=== PATIENT | female | born 1980 | race Caucasian/White ===

== ENCOUNTER 2016-08-10 23:35 | Emergency (ER) | payer OTHER ==
[2016-08-10 23:45] VITALS: RESP 18
--- NOTE | 2016-08-11 00:26 | ED ---
General Adult HPI - General Chief complaint: Allergic Reaction Stated complaint: Facial Swelling Time Seen by Provider: 08/10/16 23:59 Source: patient, RN notes reviewed Mode of arrival: ambulatory Limitations: no limitations - History of Present Illness Initial comments: Patient is a 36-year-old female presents to the emergency room for evaluation of chin swelling. Patient states she noticed swelling of her chin over 5 hours ago. Patient states it has increasingly been getting swollen over the course of 5 hours. Patient denies new facial washes. Patient denies any new facial lotions. Patient denies change in detergents. Patient denies any new medications. Patient states she has had these same symptoms before a few months ago and her chin was very swollen, wheeped and then subsided. Patient denies seeking medical treatment for it at that time. Patient states that this is causing her pain. Patient states the area hurts to touch. Patient denies any trouble swallowing. Patient denies fevers or chills. Patient denies headache or dizziness. Patient does states she has a history of cellulitis. Patient states she had in the back of her neck and this feels somewhat similar. Patient also states she has a history of lupus. Patient denies tongue swelling. Patient denies trying any new foods. Patient denies any dental pain. - Related Data Home Medications Medication Instructions Recorded Confirmed Albuterol Inhaler [Ventolin Hfa 1 puff INHALATION RT-Q6H PRN 11/04/15 11/04/15 Inhaler] Aspirin 364 mg PO ONCE 11/04/15 11/04/15 Previous Rx's Medication Instructions Recorded Cyclobenzaprine [Flexeril] 10 mg PO TID #20 tab 11/04/15 Naproxen 500 mg PO Q12HR 14 Days 11/04/15 Sulfamethox-Tmp 800-160Mg [Bactrim 2 each PO Q12HR 10 Days 08/11/16 Ds] Allergies Allergy/AdvReac Type Severity Reaction Status Date / Time No Known Allergies Allergy Verified 08/10/16 23:45 Review of Systems ROS Statement: Those systems with pertinent positive or pertinent negative responses have been documented in the HPI. ROS Other: All systems not noted in ROS Statement are negative. Past Medical History Past Medical History: Asthma Additional Past Medical History / Comment(s): Lupus anemia History of Any Multi-Drug Resistant Organisms: None Reported Past Surgical History: Section, Tubal Ligation Additional Past Surgical History / Comment(s): lupus Past Psychological History: No Psychological Hx Reported Smoking Status: Never smoker Past Alcohol Use History: None Reported Past Drug Use History: None Reported General Exam - General Exam Comments Initial Comments: Sitting in exam room, no acute distress. Limitations: no limitations General appearance: alert, in no apparent distress Head exam: Present: atraumatic, normocephalic, normal inspection Eye exam: Present: normal appearance ENT exam: Present: normal exam Neck exam: Present: normal inspection Respiratory exam: Absent: respiratory distress Extremities exam: Present: normal inspection Back exam: Present: normal inspection Neurological exam: Present: alert, oriented X3, CN II-XII intact, normal gait Psychiatric exam: Present: normal affect, normal mood Skin exam: Present: other (Slight erythema and induration over the chin. No drainage noted no fluctuance.) Course Vital Signs 08/10/16 08/11/16 23:41 00:48 Temperature 99.8 F H 99.1 F Pulse Rate 113 H 97 Respiratory 18 18 Rate Blood Pressure 139/72 145/88 O2 Sat by Pulse 97 99 Oximetry Medical Decision Making - Medical Decision Making Patient is a 36-year-old female presents emergency room for evaluation of chin swelling. Symptoms consistent with possible facial cellulitis. Patient also evaluated by Dr. Gabriel. Patient was started on Bactrim and advised to return for worsening symptoms. Patient states she understands everything that was discussed with her. Return parameters discussed. Disposition Clinical Impression: Facial cellulitis Disposition: HOME SELF-CARE Condition: Good Instructions: Cellulitis (ED) Additional Instructions: Take antibiotics as instructed. Apply warm compresses. Please follow up with primary care provider in 1-2 days. If any new symptom arises or symptoms worsen , return to ER as soon as possible. Prescriptions: Sulfamethox-Tmp 800-160Mg [Bactrim Ds] 2 each PO Q12HR 10 Days Referrals: Jaclyn Nevarez MD [STAFF PHYSICIAN] - 1-2 days Time of Disposition: 00:38
[2016-08-11] MEDS ORDERED: SULFAMETHOX-TMP 800-160MG 1 EACH TAB PO STA ×2 (00:41→00:58)
[2016-08-11 00:52] VITALS: BP 145/88; PULSE 97; TEMP 99.1
== END 2016-08-11 01:02 | disposition home or self-care (01) ==
LOC: EC 23:35
DX: L03.211 Cellulitis of face (principal); Z79.82 Long term (current) use of aspirin
CPT/HCPCS: 99283

== ENCOUNTER 2016-08-25 17:28 | Emergency (ER) | payer OTHER ==
--- NOTE | 2016-08-25 19:13 | ED ---
Skin/Abscess/FB HPI - General Chief complaint: Skin/Abscess/Foreign Body Stated complaint: cellulitis, shakiness Time Seen by Provider: 08/25/16 18:40 Source: patient, RN notes reviewed Mode of arrival: ambulatory Limitations: no limitations - History of Present Illness Initial comments: 36-year-old female presents to the emergency department with a chief complaint of cellulitis to the back. Patient states that she had swelling to her chin and she was started on Bactrim and there is drainage. Patient states that now she's noticed an area of cellulitis to the back which typical for her she didn' t get cellulitis back in 10 to time. Patient states that she has not had any nausea or vomiting with this. Patient states it's in her upper back. Patient sates that she has not noticed a fever at home but she has had the chills. Patient eats that she was concerned because she is on the Bactrim but this does not seem be going away so she thought that she should be evaluated. Patient denies any recent fever, chills, shortness of breath, chest pain, back pain, abdominal pain, nausea vomiting, numbness or tingling, dysuria or hematuria, constipation or diarrhea, headaches or visual changes, or any other current symptoms. - Related Data Home Medications Medication Instructions Recorded Confirmed Albuterol Inhaler [Ventolin Hfa 1 puff INHALATION RT-Q6H PRN 11/04/15 08/25/16 Inhaler] Sulfamethox-Tmp 800-160Mg [Bactrim 1 tab PO Q12HR 08/25/16 08/25/16 Ds] Previous Rx's Medication Instructions Recorded Cephalexin [Keflex] 500 mg PO Q6HR #40 cap 08/25/16 Allergies Allergy/AdvReac Type Severity Reaction Status Date / Time No Known Allergies Allergy Verified 08/25/16 19:03 Review of Systems ROS Statement: Those systems with pertinent positive or pertinent negative responses have been documented in the HPI. ROS Other: All systems not noted in ROS Statement are negative. Past Medical History Past Medical History: Asthma Additional Past Medical History / Comment(s): Lupus anemia History of Any Multi-Drug Resistant Organisms: None Reported Past Surgical History: Section, Tubal Ligation Additional Past Surgical History / Comment(s): lupus Past Psychological History: No Psychological Hx Reported Smoking Status: Never smoker Past Alcohol Use History: None Reported Past Drug Use History: None Reported General Exam Limitations: no limitations General appearance: alert, in no apparent distress Head exam: Present: atraumatic, normocephalic, normal inspection ENT exam: Present: normal exam, mucous membranes moist Neck exam: Present: normal inspection. Absent: tenderness, meningismus, lymphadenopathy Respiratory exam: Present: normal lung sounds bilaterally. Absent: respiratory distress, wheezes, rales, rhonchi, stridor Cardiovascular Exam: Present: regular rate, normal rhythm, normal heart sounds. Absent: systolic murmur, diastolic murmur, rubs, gallop, clicks Back exam: Present: full ROM. Absent: normal inspection (Patient appears to have some swelling and erythema to the upper back.), tenderness Neurological exam: Present: alert, oriented X3 Psychiatric exam: Present: normal affect, normal mood Skin exam: Present: warm, dry, intact, normal color. Absent: rash Course Vital Signs 08/25/16 17:58 Temperature 99.0 F Pulse Rate 70 Respiratory 20 Rate Blood Pressure 128/85 O2 Sat by Pulse 98 Oximetry Medical Decision Making - Medical Decision Making 36-year-old female presents emergency Department chief complaint of what appears to be a cellulitis to the back. This time we'll add Keflex to the patient's treatment due to the fact that Bactrim does not have good coverage for a simple cellulitis. At this time we did discuss follow up with her doctor we did discuss return parameters all questions. Patient stated that she understood and she is here with this plan. She will be discharged. Disposition Clinical Impression: Cellulitis of back Disposition: HOME SELF-CARE Condition: Stable Instructions: Cellulitis (ED) Additional Instructions: Please use medication as discussed. Please follow up with family doctor if symptoms have not improved over the next two days. Please return to the emergency room if your symptoms increase or worsen or for any other concerns. Prescriptions: Cephalexin [Keflex] 500 mg PO Q6HR #40 cap Referrals: Bety Mansfield MD [STAFF PHYSICIAN] - 1-2 days Time of Disposition: 19:12
[2016-08-25 19:25] VITALS: BP 152/74; PULSE 69; RESP 18; TEMP 98.7
== END 2016-08-25 19:22 | disposition home or self-care (01) ==
LOC: EC 17:28
DX: L03.312 Cellulitis of back [any part except buttock and flank] (principal)
CPT/HCPCS: 99283

== ENCOUNTER 2016-09-23 13:15 | Emergency (ER) | payer OTHER ==
[2016-09-23 14:05] LABS: Appearance,Urine Clear (Clear); Bilirubin,Urine Negative (Negative); Glucose,Urine (UA) Negative (Negative); Ketones,Urine Negative (Negative); Leukocyte Esterase,Urine Negative (Negative); Nitrite,Urine Negative (Negative); PH, Urine 7.5 (5.0-8.0); Protein,Urine Negative (Negative); Specific Gravity,Urine 1.005 (1.001-1.035); UA Billing (MACRO vs. MICRO) CHEM; Urobilinogen,Urine <2.0 mg/dL (<2.0)
[2016-09-23] MEDS ORDERED: RX INFO: IV CONTRAST WAS GIVEN 1 EACH MISC MISCELLANE PRN (14:10)
--- NOTE | 2016-09-23 14:19 | ED ---
General Adult HPI - General Chief complaint: Abdominal Pain Stated complaint: Abd Pain Time Seen by Provider: 09/23/16 13:34 Source: patient Mode of arrival: wheelchair Limitations: no limitations - History of Present Illness Initial comments: Patient is a 36-year-old female who presents to the ED for evaluation of right lower quadrant abdominal pain. Patient states that 2 days ago she experienced nausea and nonbloody nonbilious vomiting throughout today. She reports that yesterday throughout the day she didn't eat or drink much because she had no appetite. She states that she was sexually active yesterday evening but experienced pain with sexual intercourse. She states that this morning she woke up with a gnawing cramping pain in her right lower quadrant radiating to her right flank. Patient has never experienced any pain like this in the past. 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 Patient reports that she's had a tubal ligation, she is sexually active with a single partner in a monogamous relationship and has no concern for sexual transmitted infections or . Patient reports that prior to yesterday she had never experienced any dyspareunia, vaginal discharge or pain with any type of sexual activity. Patient is currently on antibiotics for cellulitis which she reports is been improving significantly. She does have chronic psoriasis which is poorly controlled. - Related Data Home Medications Medication Instructions Recorded Confirmed Albuterol Inhaler [Ventolin Hfa 1 puff INHALATION RT-Q6H PRN 11/04/15 09/23/16 Inhaler] Allergies Allergy/AdvReac Type Severity Reaction Status Date / Time No Known Allergies Allergy Verified 09/23/16 13:20 Review of Systems ROS Statement: Those systems with pertinent positive or pertinent negative responses have been documented in the HPI. ROS Other: All systems not noted in ROS Statement are negative. Constitutional: Reports: fever (subjective) Eyes: Denies: vision change ENT: Denies: throat pain Respiratory: Denies: cough, dyspnea Cardiovascular: Denies: chest pain, palpitations Endocrine: Reports: fatigue Gastrointestinal: Reports: abdominal pain, nausea, vomiting. Denies: diarrhea, constipation, hematemesis, melena, hematochezia Genitourinary: Reports: urgency, frequency, abnormal menses (menses occured 1 week early this month). Denies: dysuria, hematuria, discharge Skin: Reports: rash (chronic psoriasis) Neurological: Denies: headache, weakness Psychiatric: Denies: anxiety Hematological/Lymphatic: Denies: easy bleeding, easy bruising Past Medical History Past Medical History: Asthma Additional Past Medical History / Comment(s): Lupus anemia chronic cellulitis, HPV History of Any Multi-Drug Resistant Organisms: None Reported Past Surgical History: Section, Tubal Ligation Additional Past Surgical History / Comment(s): lupus Past Psychological History: No Psychological Hx Reported Smoking Status: Never smoker Past Alcohol Use History: None Reported Past Drug Use History: None Reported General Exam Limitations: no limitations General appearance: alert, in no apparent distress Head exam: Present: atraumatic Eye exam: Present: normal appearance, PERRL, EOMI. Absent: scleral icterus, conjunctival injection, periorbital swelling ENT exam: Present: mucous membranes dry Neck exam: Present: normal inspection. Absent: tenderness, meningismus, lymphadenopathy Respiratory exam: Present: normal lung sounds bilaterally. Absent: respiratory distress, wheezes Cardiovascular Exam: Present: regular rate, normal rhythm GI/Abdominal exam: Present: soft, tenderness (RLQ), normal bowel sounds. Absent : distended, guarding, rebound, rigid Rectal exam: Present: deferred Extremities exam: Present: full ROM, normal capillary refill. Absent: tenderness Back exam: Present: full ROM, CVA tenderness (R). Absent: CVA tenderness (L), paraspinal tenderness, vertebral tenderness Neurological exam: Present: alert, oriented X3, CN II-XII intact Psychiatric exam: Present: normal affect, normal mood Skin exam: Present: warm, dry, intact, rash Course Vital Signs 09/23/16 09/23/16 09/23/16 13:17 15:16 17:07 Temperature 99.3 F 98.7 F Pulse Rate 85 72 94 Respiratory 18 18 16 Rate Blood Pressure 134/94 114/59 116/86 O2 Sat by Pulse 100 100 100 Oximetry 09/23/16 17:53 Temperature 98.6 F Pulse Rate 87 Respiratory 16 Rate Blood Pressure 130/68 O2 Sat by Pulse 99 Oximetry Medical Decision Making - Medical Decision Making The patient was seen and evaluated, history is obtained from the patient Urinalysis reveals no hematuria or signs of urinary tract infection, urine is negative Concerning the pain is in the right lower quadrant and associated with nausea, vomiting and anorexia I will pursue further workup for possible appendicitis Labs no acute abnormalities CT abdomen with no evidence of acute appendicitis, no acute findings on CT Patient with persistent right lower quadrant pain and pelvic pain Pelvic Exam with no acute findings Patient was noted to be can writhing in pain immediately upon manual examination though she tolerated the speculum exam cultures were obtained Pelvic ultrasound was ordered Pelvic ultrasound with no evidence of ovarian torsion, cyst or acute pathology All lab, physical exam and radiology findings were discussed with the patient. I advised her that there is no unified cause for her pain today. Patient states she believes this may just be her lupus. Patient states that she has recently moved back to the area from out of town and does not have a manager civil that area, however she does have a primary care physician she previously followed with that she does plan to follow up with. I discussed with patient indications for return to the ER including worsening pain, inability to tolerate oral intake or the development of any new or concerning symptoms. Patient expressed understanding and agreement with the plan for discharge home with close follow-up with PCP - Lab Data Result diagrams: 09/23/16 13:38 09/23/16 13:38 Lab Results 09/23/16 09/23/16 09/23/16 Range/Units 13:38 13:38 13:38 WBC 8.6 (3.8-10.6) k/uL RBC 4.78 (3.80-5.40) m/uL Hgb 12.4 (11.4-16.0) gm/dL Hct 38.2 (34.0-46.0) % MCV 79.9 L (80.0-100.0) fL MCH 25.9 (25.0-35.0) pg MCHC 32.5 (31.0-37.0) g/dL RDW 15.2 (11.5-15.5) % Plt Count 462 H (150-450) k/uL Neutrophils % 80 % Lymphocytes % 16 % Monocytes % 2 % Eosinophils % 1 % Basophils % 0 % Neutrophils # 6.9 (1.3-7.7) k/uL Lymphocytes # 1.4 (1.0-4.8) k/uL Monocytes # 0.1 (0-1.0) k/uL Eosinophils # 0.1 (0-0.7) k/uL Basophils # 0.0 (0-0.2) k/uL Hypochromasia Slight Sodium (137-145) mmol/L Potassium (3.5-5.1) mmol/L Chloride (98-107) mmol/L Carbon Dioxide (22-30) mmol/L Anion Gap mmol/L BUN (7-17) mg/dL Creatinine (0.52-1.04) mg/dL Est GFR (MDRD) Af Amer (>60 ml/min/1.73 sqM) Est GFR (MDRD) Non-Af (>60 ml/min/1.73 sqM) Glucose (74-99) mg/dL Calcium (8.4-10.2) mg/dL Urine Color Yellow Urine Appearance Clear (Clear) Urine pH 7.5 (5.0-8.0) Ur Specific [place] 1.005 (1.001-1.035) Urine Protein Negative (Negative) Urine Glucose (UA) Negative (Negative) Urine Ketones Negative (Negative) Urine Blood Negative (Negative) Urine Nitrite Negative (Negative) Urine Bilirubin Negative (Negative) Urine Urobilinogen <2.0 (<2.0) mg/dL Ur Leukocyte Esterase Negative (Negative) Urine HCG, Qual Not Detected (Not Detectd) 09/23/16 Range/Units 13:38 WBC (3.8-10.6) k/uL RBC (3.80-5.40) m/uL Hgb (11.4-16.0) gm/dL Hct (34.0-46.0) % MCV (80.0-100.0) fL MCH (25.0-35.0) pg MCHC (31.0-37.0) g/dL RDW (11.5-15.5) % Plt Count (150-450) k/uL Neutrophils % % Lymphocytes % % Monocytes % % Eosinophils % % Basophils % % Neutrophils # (1.3-7.7) k/uL Lymphocytes # (1.0-4.8) k/uL Monocytes # (0-1.0) k/uL Eosinophils # (0-0.7) k/uL Basophils # (0-0.2) k/uL Hypochromasia Sodium 138 (137-145) mmol/L Potassium 4.5 (3.5-5.1) mmol/L Chloride 104 (98-107) mmol/L Carbon Dioxide 25 (22-30) mmol/L Anion Gap 9 mmol/L BUN 4 L (7-17) mg/dL Creatinine 0.65 (0.52-1.04) mg/dL Est GFR (MDRD) Af Amer >60 (>60 ml/min/1.73 sqM) Est GFR (MDRD) Non-Af >60 (>60 ml/min/1.73 sqM) Glucose 110 H (74-99) mg/dL Calcium 9.2 (8.4-10.2) mg/dL Urine Color Urine Appearance (Clear) Urine pH (5.0-8.0) Ur Specific [place] (1.001-1.035) Urine Protein (Negative) Urine Glucose (UA) (Negative) Urine Ketones (Negative) Urine Blood (Negative) Urine Nitrite (Negative) Urine Bilirubin (Negative) Urine Urobilinogen (<2.0) mg/dL Ur Leukocyte Esterase (Negative) Urine HCG, Qual (Not Detectd) Disposition Clinical Impression: Abdominal pain Disposition: HOME SELF-CARE Instructions: Karen (ED), Acute Abdominal Pain (ED), Abdominal Pain (ED ) Referrals: Jaclyn Nevarez MD [Primary Care Provider] - 1-2 days Time of Disposition: 17:36
[2016-09-23 14:40] LABS: Basophils % (A) 0 %; CH 25.1; CHCM 31.4; Eosinophils # (A) 0.1 k/uL (0-0.7); Eosinophils % (A) 1 %; HCT 38.2 % (34.0-46.0); HDW 2.62; HGB 12.4 gm/dL (11.4-16.0); Hypochromasia Slight; Luc # (Auto) 0.09; Luc % (Auto) 1; Lymphocytes # (A) 1.4 k/uL (1.0-4.8); Lymphocytes % (A) 16 %; MCH 25.9 pg (25.0-35.0); MCHC 32.5 g/dL (31.0-37.0); MCV 79.9 fL (80.0-100.0); Mean Platelet Volume 6.4; Monocytes # (A) 0.1 k/uL (0-1.0); Monocytes % (A) 2 %; Neutrophils # (A) 6.9 k/uL (1.3-7.7); Neutrophils % (A) 80 %; RBC 4.78 m/uL (3.80-5.40); RDW 15.2 % (11.5-15.5); WBC 8.6 k/uL (3.8-10.6); WBC (Perox) 8.91
[2016-09-23 14:42] LABS: Anion Gap 9 mmol/L; Blood Urea Nitrogen 4 mg/dL (7-17); Calcium 9.2 mg/dL (8.4-10.2); Carbon Dioxide 25 mmol/L (22-30); Chloride 104 mmol/L (98-107); Glucose 110 mg/dL (74-99); Non-African American GFR(MDRD) >60 (>60 ml/min/1.73 sqM); Potassium 4.5 mmol/L (3.5-5.1); Sodium 138 mmol/L (137-145)
--- NOTE | 2016-09-23 15:23 | CT ---
EXAMINATION TYPE: CT abdomen pelvis w con DATE OF EXAM: 09/23/2016 COMPARISON: Prior CT abdomen pelvis 07/21/2014 HISTORY: RLQ pain X 3 days, burning sensation with urination CT DLP: 1980.6 mGycm Automated exposure control for dose reduction was used. TECHNIQUE: Helical acquisition of images from the lung bases through the pelvis have been completed. CONTRAST: Performed without Oral Contrast and with IV Contrast, patient injected with 100 mL of Omnipaque 300. FINDINGS: Small umbilical hernia contains fat. LUNG BASES: No significant abnormality is appreciated. AORTA: No significant abnormality is appreciated. LIVER/GB: Gallbladder is unremarkable, liver shows low attenuation and is enlarged PANCREAS: No significant abnormality is seen. SPLEEN: Enlarged ADRENALS: No significant abnormality is seen. KIDNEYS: No significant abnormality is seen. REPRODUCTIVE ORGANS: Fallopian tubal ligation clips are in place. BOWEL: The appendix is normal. No bowel obstruction. FREE AIR: No Free Air visible. ASCITES: None visible. PELVIC ADENOPATHY: None visualized. RETROPERITONEAL ADENOPATHY: No Retroperitoneal Adenopathy visible. URINARY BLADDER: No significant abnormality is seen. OSSEOUS STRUCTURES: No significant abnormality is seen. IMPRESSION: HEPATOSPLENOMEGALY, HEPATIC STEATOSIS.
--- NOTE | 2016-09-23 16:50 | US ---
EXAMINATION TYPE: US transvaginal DATE OF EXAM: 09/23/2016 COMPARISON: CT same day CLINICAL HISTORY: RLQ pain, neg CT. TECHNIQUE: Transvaginal (TV) Date of LMP: 09/16/2016 EXAM MEASUREMENTS: Uterus: 9.2 x 4.6 x 6.1 cm Endometrial Stripe: 0.8 cm Right Ovary: 2.5 x 1.9 x 2.3 cm Left Ovary: 2.6 x 1.7 x 2.9 cm 1. Uterus: Anteverted wnl 2. Endometrium: 9 mm, within normal limits. 3. Right Ovary: follicles seen 4. Left Ovary: follicles seen Spectral, color and waveform doppler imaging shows good arterial and venous flow within the ovaries ; there is no evidence for ovarian torsion. 5. Bilateral Adnexa: wnl 6. Posterior cul-de-sac: no free fluid Small nabothian cysts are noted within the cervix. IMPRESSION: Unremarkable pelvic ultrasound.
[2016-09-23 17:09] VITALS: RESP 16
[2016-09-23 17:54] VITALS: BP 130/68; PULSE 87; TEMP 98.6
== END 2016-09-23 17:53 | disposition home or self-care (01) ==
LOC: EC 13:15
DX: R10.31 Right lower quadrant pain (principal); R11.2 Nausea with vomiting, unspecified; R63.0 Anorexia; Z98.51 Tubal ligation status
CPT/HCPCS: 36415; 80048; 85025; 81003; 81025; 93975; 76830; 74177; 99284; Q9967; 87070; 87205; 87491; 87591; 87808

== ENCOUNTER 2016-11-27 17:22 | Emergency (ER) | payer OTHER ==
[2016-11-27 17:38] VITALS: BP 122/58; PULSE 99; RESP 16; TEMP 99.4
[2016-11-27] MEDS ORDERED: IBUPROFEN 800 MG TAB PO STA (17:58)
--- NOTE | 2016-11-27 18:19 | ED ---
Upper Extremity HPI - General Chief Complaint: Extremity Injury, Upper Stated Complaint: left5 hand injury from fall Time Seen by Provider: 11/27/16 17:54 Source: patient Mode of arrival: ambulatory Limitations: no limitations - History of Present Illness Initial Comments: Patient is a right-handed 36-year-old female presenting to the emergency department with chief complaint of left ventral hand pain. Patient states she was outside walking and tripped on the sidewalk and landed with her hand sideways. Onset of injury approximately 30 minutes prior to arrival. Patient is currently rating pain 7 out of 10, described as a sharp and numbing pain. Pain is exacerbated with flexion of left hand. Pain radiates up into left wrist. Patient denies previous injury or trauma to left upper extremity. No treatment prior to arrival. Patient is up-to-date on her tetanus immunization. Patient denies any other symptoms. - Related Data Home Medications Medication Instructions Recorded Confirmed Gabapentin [Neurontin] 300 mg PO BID 11/27/16 11/27/16 Allergies Allergy/AdvReac Type Severity Reaction Status Date / Time No Known Allergies Allergy Verified 11/27/16 18:13 Review of Systems ROS Statement: Those systems with pertinent positive or pertinent negative responses have been documented in the HPI. ROS Other: All systems not noted in ROS Statement are negative. Past Medical History Past Medical History: Asthma Additional Past Medical History / Comment(s): Lupus anemia chronic cellulitis, HPV History of Any Multi-Drug Resistant Organisms: None Reported Past Surgical History: Section, Tubal Ligation Additional Past Surgical History / Comment(s): lupus Past Psychological History: Bipolar Smoking Status: Never smoker Past Alcohol Use History: None Reported Past Drug Use History: Marijuana General Exam - General Exam Comments Initial Comments: GENERAL: Pt awake and alert, well-appearing, well-nourished, and in no acute distress. HEAD: Atraumatic, normocephalic. EYES: Pupils equal, round, sclera anicteric, conjunctiva are normal. ENT: Moist mucous membranes. NECK:Normal range of motion, supple without lymphadenopathy or JVD. LUNGS: Breath sounds clear to auscultation bilaterally. No wheezes, rales, or rhonchi. HEART: Heart S1, S2, no S3 or S4. Regular rate and rhythm. No murmurs, rubs or gallops. ABDOMEN: Soft, nontender, nondistended, normoactive bowel sounds. No guarding, no rebound. No masses or organomegaly appreciated. EXTREMITIES: Left hand is without obvious asymmetry or deformity compared to right hand. Mild swelling and erythema to distal aspect of the palmar hand with mild ecchymosis. Normal flexion and extension of fingers. No swelling of finger tips. Radial and ulnar pulses palpable. Cap refill less than 3 seconds. NEUROLOGICAL: Pt oriented x 3. Cranial nerves II through XII grossly intact. Strength and sensation grossly intact. PSYCH: Normal mood, normal affect. SKIN: Warm, dry, intact. Limitations: no limitations Course Vital Signs 11/27/16 17:35 Temperature 99.4 F Pulse Rate 99 Respiratory 16 Rate Blood Pressure 122/58 O2 Sat by Pulse 97 Oximetry Medical Decision Making - Medical Decision Making Left hand sprain. - Radiology Data Radiology results: report reviewed Left wrist x-ray: No acute fracture or dislocation. Joint spaces in the left wrist appear within normal limits. Overlying soft tissue appears unremarkable. Disposition Clinical Impression: Sprain of left hand Disposition: HOME SELF-CARE Condition: Good Instructions: Hand Sprain (ED) Additional Instructions: Avoid activity that causes pain Ice 20 minutes 4 times a day usually for 2-3 days Jacques wrap to provide support and limit swelling Keep elevated as much as possible 24-48 hours. Continue Motrin 800 mg 3 times a day around the clock for the next 2 days. Return to the emergency department with symptoms of increased swelling, pain, numbness, tingling, or hand feeling cold to touch. Follow-up with primary service and orthopedic service as directed if pain persist in 7-10 days. Referrals: Jaclyn Nevarez MD [Primary Care Provider] - 1-2 days Austin Davis DO [Doctor of Osteopathic Medicine] - 1-2 days (Follow-up in 7- 10 days if pain persist) Time of Disposition: 18:58
--- NOTE | 2016-11-27 18:52 | XR ---
EXAMINATION TYPE: XR wrist complete LT DATE OF EXAM: 11/27/2016 CLINICAL HISTORY: Left wrist pain after fall injury today. TECHNIQUE: Frontal, lateral and oblique images of the left wrist are obtained. Additional fourth sca phoid view was acquired. COMPARISON: None FINDINGS: There is no acute fracture/dislocation evident in the left wrist. The joint spaces in the left wrist appear within normal limits. The overlying soft tissue appears unremarkable. IMPRESSION: There is no acute fracture or dislocation in the left wrist.
== END 2016-11-27 19:05 | disposition home or self-care (01) ==
LOC: EC 17:22
DX: S63.92XA Sprain of unspecified part of left wrist and hand, initial encounter (principal); Z79.899 Other long term (current) drug therapy; W01.0XXA Fall on same level from slipping, tripping and stumbling without subsequent striking against object, initial encounter; Y92.480 Sidewalk as the place of occurrence of the external cause
CPT/HCPCS: 99283

== ENCOUNTER 2016-11-28 20:34 | Emergency (ER) | payer OTHER ==
--- NOTE | 2016-11-28 20:58 | ED ---
General Adult HPI - General Chief complaint: Extremity Injury, Lower Stated complaint: left Knee Pain Time Seen by Provider: 11/28/16 20:41 Source: patient, RN notes reviewed Mode of arrival: wheelchair Limitations: no limitations - History of Present Illness Initial comments: This is a 36-year-old female who presents to the emergency department with chief complaint of left knee pain. Patient states she presented to the ED yesterday after falling on a sidewalk. She was diagnosed with having a left wrist sprain. Patient states that when she fell, she fell onto her knees as well but experienced no pain in either of her knees so was not evaluated for knee injury at the ED. This afternoon patient began to develop a dull ache in her left knee. She states that with flexion and weightbearing there is a sharp shooting pain. Denies fever, chills, chest pain, shortness of breath, abdominal pain, nausea or vomiting, constipation or diarrhea, dysuria or hematuria, numbness or tingling, headache or vision changes. - Related Data Home Medications Medication Instructions Recorded Confirmed Gabapentin [Neurontin] 300 mg PO BID 11/27/16 11/27/16 Albuterol Inhaler [Ventolin Hfa 1 - 2 puff INHALATION RT-Q6H PRN 11/28/16 Inhaler] Previous Rx's Medication Instructions Recorded Ibuprofen 600 mg PO Q6HR #30 tablet 11/28/16 Allergies Allergy/AdvReac Type Severity Reaction Status Date / Time No Known Allergies Allergy Verified 11/28/16 20:49 Review of Systems ROS Statement: Those systems with pertinent positive or pertinent negative responses have been documented in the HPI. ROS Other: All systems not noted in ROS Statement are negative. Past Medical History Past Medical History: Asthma Additional Past Medical History / Comment(s): Lupus anemia chronic cellulitis, HPV History of Any Multi-Drug Resistant Organisms: None Reported Past Surgical History: Section, Tubal Ligation Additional Past Surgical History / Comment(s): lupus Past Psychological History: Bipolar Smoking Status: Never smoker Past Alcohol Use History: None Reported Past Drug Use History: Marijuana General Exam - General Exam Comments Initial Comments: General: Awake and alert, well-developed; in no apparent distress. HEENT: Head atraumatic, normocephalic. Pupils are equal, round and reactive to light. Extraocular movements intact. Neck: Supple. Normal ROM. Cardiovascular: Regular rate and rhythm. No murmurs, rubs or gallops. Chest symmetrical. Respiratory: Lungs clear to auscultation bilaterally. No wheezes, rales or rhonchi. Normal respiratory effort with no use of accessory muscles. Musculoskeletal: Left knee has no evidence of swelling or erythema. Pain is elicited with palpation of the medial aspect of the left knee. Active and passive range of motion is normal, however pain is elicited with flexion and valgus stress. Sensation is intact. Pedal pulses 2+ equal and palpable bilaterally. Skin: [place], warm and dry without rashes or lesions. Neurological: Alert and oriented x3. CN II-XII grossly intact. Speech is fluent and answers are appropriate. No focal neuro deficits. Psychiatric: Normal mood and affect. No overt signs of depression or anxiety noted. Limitations: no limitations Course Vital Signs 11/28/16 20:37 Temperature 98 F Pulse Rate 86 Respiratory 18 Rate Blood Pressure 143/67 O2 Sat by Pulse 96 Oximetry Medical Decision Making - Medical Decision Making This is a 36-year-old female who presents to the emergency department with complaint of left knee pain. X-ray reveals no acute fracture, dislocations or other abnormalities. Left knee was placed in a knee immobilizer. Patient will be discharged home with recommendation to use ice and elevate and to take ibuprofen as needed for pain. She was provided contact information for follow- up with orthopedics if desired. Patient voices understanding and is in agreement to the plan. All questions were answered. - Radiology Data Radiology results: report reviewed Left knee xray findings: There is no fracture or malalignment, and the soft tissues are negative for acute findings. Prominently advanced tricompartmental osteoarthritis changes are noted. Disposition Clinical Impression: Acute internal derangement of knee Disposition: HOME SELF-CARE Condition: Good Instructions: Knee Sprain (ED), Knee Pain (ED) Additional Instructions: Please take medications as prescribed. Please follow up with orthopedics within 1-2 days. Please follow up with primary care provider within 1-2 days. Return to emergency department if symptoms should worsen or any concerns arise. Prescriptions: Ibuprofen 600 mg PO Q6HR #30 tablet Referrals: Jaclyn Nevarez MD [Primary Care Provider] - 1-2 days Artemio Hurt MD [STAFF PHYSICIAN] - 1-2 days Time of Disposition: 21:35
--- NOTE | 2016-11-28 21:22 | XR ---
PROCEDURE: XR knee complete LT DATE AND TIME: 11/28/2016 9:05 PM REFERRING PHYSICIAN: Dana Reyes CLINICAL INDICATION: PHH, Pain after injury. TECHNIQUE: Department protocol. COMPARISON: None FINDINGS: There is no fracture or malalignment, and the soft tissues are negative for acute findings. Prominently advanced tricompartmental osteoarthritis changes are noted. IMPRESSION: NO ACUTE PROCESS.
[2016-11-28 21:52] VITALS: BP 90/61; PULSE 67; RESP 16; TEMP 98.3
== END 2016-11-28 21:50 | disposition home or self-care (01) ==
LOC: EC 20:34
DX: S89.92XA Unspecified injury of left lower leg, initial encounter (principal); Z79.899 Other long term (current) drug therapy; W19.XXXA Unspecified fall, initial encounter; Y92.480 Sidewalk as the place of occurrence of the external cause
CPT/HCPCS: 99283 ×2; 73562; L1830

== ENCOUNTER 2017-03-22 11:57 | Emergency (ER) | payer OTHER ==
[2017-03-22 12:11] VITALS: RESP 20
[2017-03-22] MEDS ORDERED: IPRATROPIUM-ALBUTEROL 3 ML NEB INHALATION STA (12:12)
--- NOTE | 2017-03-22 12:22 | ED ---
General Adult HPI - General Chief complaint: Shortness of Breath Stated complaint: Congestion, SOB Time Seen by Provider: 03/22/17 12:05 Source: patient, RN notes reviewed Mode of arrival: wheelchair Limitations: no limitations - History of Present Illness Initial comments: This is a 37-year-old female who presents to the emergency department with chief complaint of shortness of breath and congestion. Patient states that last Monday she was treated for bronchitis with a Z-Jayme and steroids. She states that at that time she had a dry cough. She states that her symptoms have progressively gotten worse. She states that she currently feels like there is an elephant sitting on her chest. She feels like she is "drowning." Patient states she is worried she has a urinary embolism. She was diagnosed with a PE at the beginning of January of last year. She was treated with Xarelto and finished the medication 2 weeks ago. Patient is a current, every day smoker. Denies any recent surgeries. Denies use of oral contraceptives. She denies calf pain, fevers or chills, abdominal pain, nausea or vomiting, diarrhea or constipation, dizziness or headache, numbness or tingling. - Related Data Home Medications Medication Instructions Recorded Confirmed Albuterol Inhaler [Ventolin Hfa 1 - 2 puff INHALATION RT-Q6H PRN 11/28/16 Inhaler] Previous Rx's Medication Instructions Recorded Acetaminophen Tab [Tylenol] 650 mg PO Q6HR PRN tab 01/21/17 Cyclobenzaprine [Flexeril] 5 mg PO TID PRN tab 01/21/17 Famotidine [Pepcid] 20 mg PO BID tab 01/21/17 Ibuprofen [Motrin] 600 mg PO QID PRN tab 01/21/17 Rivaroxaban [Xarelto Starter Pack] 1 each PO DIRECTED #51 tab 01/21/17 ARIPiprazole [Abilify] 10 mg PO DAILY #30 tab 01/26/17 Naltrexone HCl [Revia] 50 mg PO DAILY #30 tab 01/26/17 traZODone HCL [Desyrel] 50 mg PO HS #30 tab 01/26/17 Albuterol Nebulized [Ventolin 2.5 mg INHALATION Q4H #25 neb 03/22/17 Nebulized] predniSONE 20 mg PO BID #8 tab 03/22/17 Allergies Allergy/AdvReac Type Severity Reaction Status Date / Time No Known Allergies Allergy Verified 03/22/17 12:06 Review of Systems ROS Statement: Those systems with pertinent positive or pertinent negative responses have been documented in the HPI. ROS Other: All systems not noted in ROS Statement are negative. Past Medical History Past Medical History: Asthma, Pulmonary Embolus (PE), Skin Disorder Additional Past Medical History / Comment(s): Lupus anemia, chronic cellulitis , HPV, bipolar disorder History of Any Multi-Drug Resistant Organisms: None Reported Past Surgical History: Section, Tubal Ligation Additional Past Surgical History / Comment(s): lupus Additional Past Anesthesia/Blood Transfusion Reaction / Comment(s): pt has not had transfusion. Past Psychological History: Anxiety, Bipolar, Depression Smoking Status: Current every day smoker Past Alcohol Use History: None Reported Past Drug Use History: None Reported - Past Family History Mother Family Medical History: Diabetes Mellitus Additional Family Medical History / Comment(s): lupus, bipolar, drug dependency. Father Additional Family Medical History / Comment(s): "heart problems" General Exam - General Exam Comments Initial Comments: General: Awake and alert, well-developed; in no apparent distress. HEENT: Head atraumatic, normocephalic. Pupils are equal, round and reactive to light. Extraocular movements intact. Neck: Supple. Normal ROM. Cardiovascular: Regular rate and rhythm. No murmurs, rubs or gallops. Chest symmetrical. Respiratory: Normal respiratory effort with no use of accessory muscles. Diminished air movement and wheezes throughout all lung cruz. Abdomen: Soft, non-tender, non-distended. No rigidity, rebound or guarding. Musculoskeletal: Normal ROM, no tenderness bilateral upper and lower extremities. Ambulating normally. No calf tenderness bilaterally. Pedal pulses are 2+ equal and palpable bilaterally. Skin: [place], warm and dry without rashes or lesions. Neurological: Alert and oriented x3. CN II-XII grossly intact. Speech is fluent and answers are appropriate. No focal neuro deficits. Psychiatric: Normal mood and affect. No overt signs of depression or anxiety noted. Limitations: no limitations Course Vital Signs 03/22/17 03/22/17 03/22/17 12:06 12:27 12:37 Temperature 98.2 F Pulse Rate 81 84 84 Respiratory 20 Rate Blood Pressure 144/72 O2 Sat by Pulse 95 Oximetry 02/07/18 02/07/18 12:44 14:11 Temperature 98.3 F Pulse Rate 67 Respiratory 20 20 Rate Blood Pressure 94/50 O2 Sat by Pulse 95 Oximetry EKG Findings - EKG Comments: EKG Findings:: EKG at 12:24:19. Normal sinus rhythm with sinus arrhythmia. Ventricular rate 70 bpm, RI interval 114, QRS duration 102, QT/QTc 424/457. No ST segment depression or elevation. Medical Decision Making - Medical Decision Making This is a 37-year-old female who presents to the emergency department with chief complaint of shortness of breath and congestion. Patient states that she was treated last Monday for bronchitis with azithromycin and steroids. Her symptoms have worsened since that time. In the emergency department, she complains of feeling like a elephant is sitting on her chest. Patient states that her illness definitely feels like a lung issue and not a cardiac issue. Vital signs were stable throughout entire emergency department stay. CBC was normal. CMP was normal. D-dimer was elevated at 1.37. CTA revealed no evidence for an acute pulmonary embolism. It did however show enlarged bilateral hilar and mediastinal lymph nodes. These findings were also present on previous CTA. Patient states that she was supposed to follow up for this but has yet to do so. Troponin and cardiac profile are within normal limits. EKG was normal without ST segment elevation or depression. Chest x-ray revealed no acute abnormalities. After breathing treatment, patient's lung sounds have improved. Patient will be started on another course of steroids. She'll be given a prescription for at home albuterol nebulizer treatments. She states that she does have an albuterol inhaler. I recommended taking 2 puffs every 4 hours. I recommended smoking cessation. Patient will be provided with contact information for Dr. Monson, double cut sawyer. Patient comfortable being discharged home. She is in no acute distress. Return parameters were discussed. She is in agreement with plan and voices understanding. All questions were answered. - Lab Data Result diagrams: 03/22/17 12:15 03/22/17 12:15 Lab Results 03/22/17 03/22/17 03/22/17 Range/Units 12:15 12:15 12:15 WBC 5.5 (3.8-10.6) k/uL RBC 4.47 (3.80-5.40) m/uL Hgb 11.4 (11.4-16.0) gm/dL Hct 36.8 (34.0-46.0) % MCV 82.2 (80.0-100.0) fL MCH 25.5 (25.0-35.0) pg MCHC 31.0 (31.0-37.0) g/dL RDW 14.8 (11.5-15.5) % Plt Count 394 (150-450) k/uL Neutrophils % 65 % Lymphocytes % 26 % Monocytes % 3 % Eosinophils % 4 % Basophils % 0 % Neutrophils # 3.6 (1.3-7.7) k/uL Lymphocytes # 1.5 (1.0-4.8) k/uL Monocytes # 0.2 (0-1.0) k/uL Eosinophils # 0.2 (0-0.7) k/uL Basophils # 0.0 (0-0.2) k/uL Hypochromasia Moderate PT (9.0-12.0) sec INR (<1.2) APTT (22.0-30.0) sec D-Dimer (<0.60) mg/L FEU Sodium 139 (137-145) mmol/L Potassium 4.2 (3.5-5.1) mmol/L Chloride 105 (98-107) mmol/L Carbon Dioxide 27 (22-30) mmol/L Anion Gap 7 mmol/L BUN 5 L (7-17) mg/dL Creatinine 0.60 (0.52-1.04) mg/dL Est GFR (MDRD) Af Amer >60 (>60 ml/min/1.73 sqM) Est GFR (MDRD) Non-Af >60 (>60 ml/min/1.73 sqM) Glucose 94 (74-99) mg/dL Calcium 8.9 (8.4-10.2) mg/dL Total Bilirubin 0.4 (0.2-1.3) mg/dL AST 23 (14-36) U/L ALT 22 (9-52) U/L Alkaline Phosphatase 63 (38-126) U/L Total Creatine Kinase 73 (30-135) U/L CK-MB (CK-2) 0.4 (0.0-2.4) ng/mL CK-MB (CK-2) Rel Index 0.5 Troponin I <0.012 (0.000-0.034) ng/mL Total Protein 6.5 (6.3-8.2) g/dL Albumin 3.4 L (3.5-5.0) g/dL 03/22/17 Range/Units 12:15 WBC (3.8-10.6) k/uL RBC (3.80-5.40) m/uL Hgb (11.4-16.0) gm/dL Hct (34.0-46.0) % MCV (80.0-100.0) fL MCH (25.0-35.0) pg MCHC (31.0-37.0) g/dL RDW (11.5-15.5) % Plt Count (150-450) k/uL Neutrophils % % Lymphocytes % % Monocytes % % Eosinophils % % Basophils % % Neutrophils # (1.3-7.7) k/uL Lymphocytes # (1.0-4.8) k/uL Monocytes # (0-1.0) k/uL Eosinophils # (0-0.7) k/uL Basophils # (0-0.2) k/uL Hypochromasia PT 9.8 (9.0-12.0) sec INR 1.0 (<1.2) APTT 23.1 (22.0-30.0) sec D-Dimer 1.37 H (<0.60) mg/L FEU Sodium (137-145) mmol/L Potassium (3.5-5.1) mmol/L Chloride (98-107) mmol/L Carbon Dioxide (22-30) mmol/L Anion Gap mmol/L BUN (7-17) mg/dL Creatinine (0.52-1.04) mg/dL Est GFR (MDRD) Af Amer (>60 ml/min/1.73 sqM) Est GFR (MDRD) Non-Af (>60 ml/min/1.73 sqM) Glucose (74-99) mg/dL Calcium (8.4-10.2) mg/dL Total Bilirubin (0.2-1.3) mg/dL AST (14-36) U/L ALT (9-52) U/L Alkaline Phosphatase (38-126) U/L Total Creatine Kinase (30-135) U/L CK-MB (CK-2) (0.0-2.4) ng/mL CK-MB (CK-2) Rel Index Troponin I (0.000-0.034) ng/mL Total Protein (6.3-8.2) g/dL Albumin (3.5-5.0) g/dL - Radiology Data Radiology results: report reviewed X-ray findings: There is no focal airspace opacity, pleural effusion or pneumothorax seen. The cardiac silhouette size is within normal limits. The osseous structures are intact. Impression: No acute cardiopulmonary process currently. CTA chest impressions: 1. Suboptimal study without CT evidence for pulmonary embolism. Pulmonary process. 3. Persistent abnormal enlarged bilateral hilar and mediastinal lymph nodes with possible hepatosplenomegaly. Consider lymphoma , sarcoidosis, and other granulomatous diseases. Disposition Clinical Impression: Bronchitis, Enlargement of lymph nodes Disposition: HOME SELF-CARE Condition: Good Instructions: Lymphadenopathy (ED), Acute Bronchitis (ED) Additional Instructions: Please follow-up with your primary care physician and Dr. Monson, double cut sawyer within 1-2 days. Please take medications as prescribed. Please follow up with primary care provider within 1-2 days. Return to emergency department if symptoms should worsen or any concerns arise. Prescriptions: Albuterol Nebulized [Ventolin Nebulized] 2.5 mg INHALATION Q4H #25 neb predniSONE 20 mg PO BID #8 tab Referrals: None,Stated [Primary Care Provider] - 1-2 days Rocael Morris MD [REFERRING] - 1-2 days Chris Barnes III, MD [STAFF PHYSICIAN] - 1-2 days Nelli Jones MD [STAFF PHYSICIAN] - 1-2 days Murray Monson MD [STAFF PHYSICIAN] - 1-2 days Time of Disposition: 14:20
[2017-03-22 12:35] LABS: Basophils % (A) 0 %; Eosinophils # (A) 0.2 k/uL (0-0.7); Eosinophils % (A) 4 %; HCT 36.8 % (34.0-46.0); HGB 11.4 gm/dL (11.4-16.0); Hypochromasia Moderate; Lymphocytes # (A) 1.5 k/uL (1.0-4.8); Lymphocytes % (A) 26 %; MCH 25.5 pg (25.0-35.0); MCV 82.2 fL (80.0-100.0); Mean Platelet Volume 6.6; Monocytes # (A) 0.2 k/uL (0-1.0); Monocytes % (A) 3 %; Neutrophils # (A) 3.6 k/uL (1.3-7.7); Neutrophils % (A) 65 %; Platelet Count 394 k/uL (150-450); RBC 4.47 m/uL (3.80-5.40); RDW 14.8 % (11.5-15.5); WBC 5.5 k/uL (3.8-10.6)
[2017-03-22 12:41] LABS: ALT 22 U/L (9-52); AST 23 U/L (14-36); Albumin 3.4 g/dL (3.5-5.0); Alkaline Phosphatase 63 U/L (38-126); Anion Gap 7 mmol/L; Blood Urea Nitrogen 5 mg/dL (7-17); Calcium 8.9 mg/dL (8.4-10.2); Carbon Dioxide 27 mmol/L (22-30); Chloride 105 mmol/L (98-107); Glucose 94 mg/dL (74-99); Potassium 4.2 mmol/L (3.5-5.1); Sodium 139 mmol/L (137-145); Total Bilirubin 0.4 mg/dL (0.2-1.3); Total Protein 6.5 g/dL (6.3-8.2)
[2017-03-22 12:43] LABS: D-Dimer 1.37 mg/L FEU (<0.60)
[2017-03-22 12:47] LABS: Partial Thromboplastin Time 23.1 sec (22.0-30.0); Prothrombin Time 9.8 sec (9.0-12.0)
[2017-03-22 12:56] LABS: Creatine Kinase 73 U/L (30-135)
[2017-03-22] MEDS ORDERED: RX INFO: IV CONTRAST WAS GIVEN 1 EACH MISC MISCELLANE PRN (12:57)
--- NOTE | 2017-03-22 12:57 | XR ---
EXAMINATION TYPE: XR chest 2V DATE OF EXAM: 03/22/2017 COMPARISON: Chest x-ray January 19, 2017. CTA chest January 20, 2017. HISTORY: Bronchitis, history of pulmonary embolism 2 months ago. Difficulty breathing prior. TECHNIQUE: Frontal and lateral views of the chest are obtained. FINDINGS: There is no focal air space opacity, pleural effusion, or pneumothorax seen. The cardiac silhouette size is within normal limits. The osseous structures are intact. IMPRESSION: No acute cardiopulmonary process currently.
[2017-03-22 13:08] LABS: Creatine Kinase MB 0.4 ng/mL (0.0-2.4); Troponin I <0.012 ng/mL (0.000-0.034)
--- NOTE | 2017-03-22 13:53 | CT ---
EXAMINATION TYPE: CT angio chest DATE OF EXAM: 03/22/2017 COMPARISON: CTA chest January 20, 2017 HISTORY: SOB, chest pain, recent PE CT DLP: 500.7 mGycm. Automated Exposure Control for Dose Reduction was Utilized. CONTRAST: CTA scan of the thorax is performed with IV Contrast, patient injected with 100 mL of Omnipaque 350, pulmonary embolism protocol. MIP Images are created on CT scanner and reviewed. FINDINGS: LUNGS: The lungs are grossly clear, there is no concerning parenchymal mass or nodule identified. T here is no pleural effusion or pneumothorax seen. The tracheobronchial tree is patent. MEDIASTINUM: There is suboptimal bolus with heterogeneity and some fairly equal contrast the right an d left heart systems but there is no convincing CT evidence for acute pulmonary embolism currently. There are persistent abnormal enlarged bilateral hilar and subcarinal lymph nodes as well as prominen t prevascular lymph nodes. No cardiomegaly or pericardial effusion is seen. OTHER: Visualized portion of liver and spleen are prominent. IMPRESSION: 1. Suboptimal study without CT evidence for pulmonary embolism. 2. No acute pulmonary process. 3. Persistent abnormal enlarged bilateral hilar and mediastinal lymph nodes with possible hepatosplen omegaly. Consider lymphoma, sarcoidosis, and other granulomatous diseases.
[2017-03-22] MEDS ORDERED: predniSONE 50 MG TAB PO STA (14:15)
[2017-03-22 14:17] VITALS: BP 94/50; PULSE 67; TEMP 98.3
== END 2017-03-22 14:30 | disposition home or self-care (01) ==
LOC: EC 11:57
DX: J40 Bronchitis, not specified as acute or chronic (principal); R59.0 Localized enlarged lymph nodes; R79.1 Abnormal coagulation profile; F17.200 Nicotine dependence, unspecified, uncomplicated
CPT/HCPCS: 36415; 93005; 85379; 80053; 82550; 82553; 84484; 85025; 85610; 85730; 71046; 71275; 99285; Q9967; J7512

== ENCOUNTER 2017-05-29 20:22 | Emergency (ER) | payer OTHER ==
[2017-05-29 20:31] VITALS: RESP 18
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
[2017-05-29 22:21] VITALS: BP 129/84; PULSE 73; TEMP 97.8
== END 2017-05-29 22:21 | disposition home or self-care (01) ==
LOC: EC 20:22
DX: S00.83XA Contusion of other part of head, initial encounter (principal); F17.200 Nicotine dependence, unspecified, uncomplicated; Y04.8XXA Assault by other bodily force, initial encounter
CPT/HCPCS: 70486; 99284

== ENCOUNTER 2017-07-14 16:40 | Inpatient (IN) | payer MEDICAID, OTHER ==
[2017-07-14 17:39] LABS: Amphetamine Screen,Urine Detected (NotDetected); Barbiturate Screen,Urine Not Detected (NotDetected); Benzodiazepines Screen,Urine Not Detected (NotDetected); Cocaine Screen,Urine Not Detected (NotDetected); Methadone Screen, Urine Not Detected (NotDetected); Opiate Screen,Urine Detected (NotDetected); Oxycodone Screen, Urine Not Detected (NotDetected); Phencyclidine Screen,Urine Not Detected (NotDetected); Tricyclic Antidepressant,Urine Not Detected (NotDetected); Urn Cannabinoid Scrn Detected (NotDetected)
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
[2017-07-14] MEDS ORDERED: MAGNESIUM HYDROXIDE 2,400 MG/10 ML CUP PO PRN (20:35)
[2017-07-14] MEDS ORDERED: MAG HYDROX/AL HYDROX/SIMETH 30 ML CUP PO PRN (20:35)
[2017-07-14] MEDS: traZODone HCL 50 MG TAB PO SCH (20:55)
[2017-07-14 21:09] VITALS: BMI 46.3
[2017-07-15] MEDS: OLANZapine 5 MG TAB PO PRN ×3 (08:13→20:52)
[2017-07-15] MEDS: hydrOXYzine PAMOATE 25 MG CAP PO PRN ×2 (08:13→15:50)
[2017-07-15] MEDS: NICOTINE 14MG/24HR PATCH TRANSDERM SCH (08:44)
[2017-07-15 08:52] LABS: Basophils % (A) 0 %; Eosinophils # (A) 0.3 k/uL (0-0.7); Eosinophils % (A) 7 %; HCT 35.3 % (34.0-46.0); HGB 11.3 gm/dL (11.4-16.0); Hypochromasia Moderate; Lymphocytes # (A) 1.2 k/uL (1.0-4.8); Lymphocytes % (A) 24 %; MCH 25.6 pg (25.0-35.0); MCV 79.8 fL (80.0-100.0); Mean Platelet Volume 6.4; Monocytes # (A) 0.2 k/uL (0-1.0); Monocytes % (A) 4 %; Neutrophils # (A) 3.2 k/uL (1.3-7.7); Neutrophils % (A) 64 %; Platelet Count 352 k/uL (150-450); RBC 4.43 m/uL (3.80-5.40); RDW 14.5 % (11.5-15.5); WBC 4.9 k/uL (3.8-10.6)
[2017-07-15 09:00] LABS: Chloride 103 mmol/L (98-107); Cholesterol 123 mg/dL (<200); Glucose 95 mg/dL (74-99); Potassium 4.2 mmol/L (3.5-5.1); Sodium 141 mmol/L (137-145); Triglycerides 92 mg/dL (<150)
[2017-07-15 09:01] LABS: Anion Gap 11 mmol/L; Blood Urea Nitrogen 10 mg/dL (7-17); Carbon Dioxide 27 mmol/L (22-30); HDL Cholesterol 31 mg/dL (40-60); LDL Cholesterol,Calculated 74 mg/dL (0-99)
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
[2017-07-15] MEDS: ARIPiprazole 10 MG TAB PO SCH ×2 (15:50→20:51)
[2017-07-15 17:27] LABS: Hemoglobin A1C 4.9 % (4.0-6.0)
[2017-07-15 20:12] LABS: Appearance,Urine Clear (Clear); Bilirubin,Urine Negative (Negative); Blood,Urine Negative (Negative); Color,Urine Yellow; Glucose,Urine (UA) Negative (Negative); Ketones,Urine 1+ (Negative); Leukocyte Esterase,Urine Negative (Negative); Nitrite,Urine Negative (Negative); Protein,Urine Trace (Negative); Specific Gravity,Urine 1.025 (1.001-1.035); Urobilinogen,Urine >12.0 mg/dL (<2.0)
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
[2017-07-15 20:39] LABS: T4, Free (Free Thyroxine) 2.3 ng/dL (0.78-2.19)
[2017-07-15] MEDS: traZODone HCL 50 MG TAB PO SCH (20:51)
[2017-07-15] MEDS ORDERED: DIPHENOX-ATROP 2.5-0.025 MG 1 EACH TAB PO PRN (21:30)
[2017-07-16] MEDS: ACETAMINOPHEN TAB 325 MG TAB PO PRN (05:54)
[2017-07-16] MEDS: hydrOXYzine PAMOATE 25 MG CAP PO PRN ×2 (08:09→15:13)
[2017-07-16] MEDS: ARIPiprazole 10 MG TAB PO SCH (08:09)
[2017-07-16] MEDS: NICOTINE 14MG/24HR PATCH TRANSDERM SCH (08:11)
[2017-07-16] MEDS: OLANZapine 5 MG TAB PO PRN (09:24)
[2017-07-16] MEDS ORDERED: ARIPiprazole 5 MG TAB PO ONE (11:16)
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
[2017-07-16] MEDS: ARIPiprazole 15 MG TAB PO SCH (20:16)
[2017-07-16] MEDS ORDERED: IMIPRAMINE 25 MG TAB PO SCH (21:00)
[2017-07-17] MEDS: ARIPiprazole 15 MG TAB PO SCH (08:12)
[2017-07-17] MEDS: hydrOXYzine PAMOATE 25 MG CAP PO PRN ×2 (08:13→16:53)
[2017-07-17] MEDS: LORazepam 1 MG TAB PO PRN ×2 (12:46→20:41)
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
[2017-07-17] MEDS: ACETAMINOPHEN TAB 325 MG TAB PO PRN (16:52)
[2017-07-17] MEDS: ARIPiprazole 10 MG TAB PO SCH (20:42)
[2017-07-17] MEDS: ZOLPIDEM 5 MG TAB PO PRN (21:02)
[2017-07-18] MEDS: ARIPiprazole 10 MG TAB PO SCH ×2 (08:30→20:41)
[2017-07-18] MEDS: ACETAMINOPHEN TAB 325 MG TAB PO PRN ×2 (08:30→16:02)
[2017-07-18] MEDS: LORazepam 1 MG TAB PO PRN ×2 (08:30→16:02)
[2017-07-18] MEDS: hydrOXYzine PAMOATE 25 MG CAP PO PRN (10:09)
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
[2017-07-18] MEDS: ZOLPIDEM 5 MG TAB PO PRN (20:42)
[2017-07-19 07:14] VITALS: RESP 16
[2017-07-19] MEDS: LORazepam 1 MG TAB PO PRN ×2 (08:06→15:31)
[2017-07-19] MEDS: ARIPiprazole 10 MG TAB PO SCH ×2 (08:06→20:04)
[2017-07-19] MEDS: ACETAMINOPHEN TAB 325 MG TAB PO PRN ×2 (08:51→12:33)
[2017-07-19] MEDS: ALBUTEROL INHALER 60 PUFF/8 GM INHALER INHALATION PRN ×2 (11:09→21:06)
[2017-07-19] MEDS: hydrOXYzine PAMOATE 25 MG CAP PO PRN ×2 (12:23→20:04)
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
[2017-07-19] MEDS: ZOLPIDEM 5 MG TAB PO PRN (20:04)
[2017-07-20 07:38] VITALS: BP 114/59; PULSE 75; TEMP 98.1
[2017-07-20] MEDS: ALBUTEROL INHALER 60 PUFF/8 GM INHALER INHALATION PRN (07:52)
[2017-07-20] MEDS: LORazepam 1 MG TAB PO PRN (08:17)
[2017-07-20] MEDS: ARIPiprazole 10 MG TAB PO SCH (08:17)
[2017-07-20] MEDS: ACETAMINOPHEN TAB 325 MG TAB PO PRN (09:33)
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
== END 2017-07-20 13:35 | disposition home or self-care (01) | DRG 881 ==
LOC: EC 16:40 → 3MHU 20:21
PROVIDERS: ADMIT Psychiatry & Neurology Psychiatry; ATTEND Psychiatry & Neurology Psychiatry
DX: F32.9 Major depressive disorder, single episode, unspecified (principal); F11.20 Opioid dependence, uncomplicated; R45.851 Suicidal ideations; Z68.42 Body mass index [BMI] 45.0-49.9, adult; R94.6 Abnormal results of thyroid function studies; E66.9 Obesity, unspecified; F15.90 Other stimulant use, unspecified, uncomplicated; F17.210 Nicotine dependence, cigarettes, uncomplicated; F41.1 Generalized anxiety disorder; F60.9 Personality disorder, unspecified; G47.00 Insomnia, unspecified; J45.909 Unspecified asthma, uncomplicated; D50.9 Iron deficiency anemia, unspecified; F12.90 Cannabis use, unspecified, uncomplicated; L40.9 Psoriasis, unspecified; Z59.0 Homelessness; Z62.810 Personal history of physical and sexual abuse in childhood; Z65.3 Problems related to other legal circumstances; Z98.51 Tubal ligation status; Z86.711 Personal history of pulmonary embolism; Z83.3 Family history of diabetes mellitus
CPT/HCPCS: 80048; 80061; 80306; 81003; 82075; 83036; 84439; 84443; 84481; 85025; 87324; 94640; 99285

== ENCOUNTER 2017-08-09 16:49 | Inpatient (IN) | payer OTHER ==
[2017-08-09] MEDS ORDERED: IPRATROPIUM-ALBUTEROL 3 ML NEB INHALATION STA (17:28)
[2017-08-09] MEDS ORDERED: SODIUM CHLORIDE 0.9% 500 ML IV STA (17:28)
[2017-08-09] MEDS ORDERED: methylPREDNISolone SOD SUCCI 125 MG/2 ML VIAL IV STA (17:28)
--- NOTE | 2017-08-09 17:32 | ED ---
General Adult HPI - General Source: patient, RN notes reviewed Mode of arrival: ambulatory Limitations: no limitations <Austin Archer - Last Filed: 08/09/17 19:16> <Mark Thao - Last Filed: 08/09/17 20:24> - General Chief complaint: Shortness of Breath Stated complaint: BRANDEE Time Seen by Provider: 08/09/17 17:21 - History of Present Illness Initial comments: This is a 37-year-old female presents to the emergency Department chief shortness breath. Patient states she's been having increasing shortness breath over the last 2 days after being discharged from [facility]. Patient states that she was admitted there for exacerbation of ALLERGIES and asthma. Patient states that she was discharged back to [place] and states that she' s been wheezing and having shortness breath. She has received a couple of gas with relief. Patient is a nonsmoker at this time she does have a history of smoking. Patient reports no fever no chills denies any headache or chest congestion. Patient does state that she taking current prednisone and antihistamines. (Austin Archer) - Related Data Home Medications Medication Instructions Recorded Confirmed traZODone HCL 50 mg PO HS 07/14/17 08/09/17 Albuterol Nebulized (Conc) 2.5 mg INHALATION RT-Q6H PRN 08/09/17 08/09/17 [Ventolin Nebulized (Conc)] Cetirizine HCl [Zyrtec] 10 mg PO DAILY 08/09/17 08/09/17 Doxepin HCl [SINEquan] 50 mg PO HS 08/09/17 08/09/17 Famotidine [Pepcid] 20 mg PO BID 08/09/17 08/09/17 Multivitamins, Thera [Multivitamin 1 tab PO DAILY 08/09/17 08/09/17 (formulary)] predniSONE 20 mg PO DAILY 08/09/17 08/09/17 Previous Rx's Medication Instructions Recorded ARIPiprazole [Abilify] 10 mg PO BID #30 tab 07/20/17 Allergies Allergy/AdvReac Type Severity Reaction Status Date / Time No Known Allergies Allergy Verified 08/09/17 17:47 Review of Systems ROS Other: All systems not noted in ROS Statement are negative. <Austin Archer - Last Filed: 08/09/17 19:16> ROS Other: All systems not noted in ROS Statement are negative. <Mark Thao - Last Filed: 08/09/17 20:24> ROS Statement: Those systems with pertinent positive or pertinent negative responses have been documented in the HPI. Past Medical History Past Medical History: Asthma, Pulmonary Embolus (PE), Skin Disorder Additional Past Medical History / Comment(s): Lupus anemia, chronic cellulitis , HPV, bipolar disorder History of Any Multi-Drug Resistant Organisms: None Reported Past Surgical History: Section, Tubal Ligation Additional Past Surgical History / Comment(s): lupus Additional Past Anesthesia/Blood Transfusion Reaction / Comment(s): pt has not had transfusion. Past Psychological History: Anxiety, Bipolar, Depression Smoking Status: Former smoker Past Alcohol Use History: None Reported Past Drug Use History: Methamphetamine - Past Family History Mother Family Medical History: Diabetes Mellitus Additional Family Medical History / Comment(s): lupus, bipolar, drug dependency. Father Additional Family Medical History / Comment(s): "heart problems" <Austin Archer - Last Filed: 08/09/17 19:16> General Exam Limitations: no limitations General appearance: alert, in no apparent distress Head exam: Present: atraumatic, normocephalic, normal inspection ENT exam: Present: normal exam, normal oropharynx, mucous membranes moist, TM's normal bilaterally, normal external ear exam Neck exam: Present: normal inspection. Absent: tenderness, meningismus, lymphadenopathy Respiratory exam: Present: wheezes. Absent: normal lung sounds bilaterally, respiratory distress, rales, rhonchi, stridor Cardiovascular Exam: Present: normal rhythm, tachycardia, normal heart sounds. Absent: systolic murmur, diastolic murmur, rubs, gallop, clicks Back exam: Absent: CVA tenderness (R), CVA tenderness (L) Skin exam: Present: warm, dry, intact, normal color. Absent: rash <Austin Archer - Last Filed: 08/09/17 19:16> Course <Austin Archer - Last Filed: 08/09/17 19:16> <Mark Thao - Last Filed: 08/09/17 20:24> Vital Signs 08/09/17 08/09/17 08/09/17 17:14 17:44 17:56 Temperature 98.2 F Pulse Rate 113 H 111 H 113 H Respiratory 20 22 20 Rate Blood Pressure 179/99 O2 Sat by Pulse 96 Oximetry 08/09/17 08/09/17 08/09/17 17:57 19:24 19:34 Temperature Pulse Rate 110 H 111 H Respiratory 18 18 20 Rate Blood Pressure O2 Sat by Pulse Oximetry - Reevaluation(s) Reevaluation #1: 08/09/17 20:23 PA supervision: I did personally do a [id number] evaluation the patient and did discuss the findings with her and her family member. Patient does demonstrate right lower lobe rhonchi with wheezing. X-ray shows evidence of pneumonia. Patient does have pneumonia with evidence of asthma. She is a smoker who did recently quit. She will be admitted I did discuss the case with Dr. Stewart who is requested consultation with Dr. Willis. I do agree with the assessment and plan. (Mark Thao) Medical Decision Making - Lab Data Result diagrams: 08/09/17 17:55 08/09/17 17:55 <Austin Archer - Last Filed: 08/09/17 19:16> - Lab Data Result diagrams: 08/09/17 17:55 08/09/17 17:55 <Mark Thao - Last Filed: 08/09/17 20:24> - Medical Decision Making 37-year-old female presents from for shortness of breath. Patient's found to have right lower lobe pneumonia. This a hospital-acquired pneumonia. Patient was started on Levaquin and Zosyn. Patient also has exacerbation of her asthma. She will be admitted for IV steroids and antibiotics. Along with breathing treatments. (Austin Archer) - Lab Data Lab Results 08/09/17 08/09/17 08/09/17 Range/Units 17:55 17:55 18:32 WBC 14.6 H (3.8-10.6) k/uL RBC 4.84 (3.80-5.40) m/uL Hgb 12.2 (11.4-16.0) gm/dL Hct 37.5 (34.0-46.0) % MCV 77.4 L (80.0-100.0) fL MCH 25.1 (25.0-35.0) pg MCHC 32.5 (31.0-37.0) g/dL RDW 15.2 (11.5-15.5) % Plt Count 322 (150-450) k/uL Neutrophils % 86 % Lymphocytes % 7 % Monocytes % 4 % Eosinophils % 2 % Basophils % 0 % Neutrophils # 12.6 H (1.3-7.7) k/uL Lymphocytes # 1.1 (1.0-4.8) k/uL Monocytes # 0.6 (0-1.0) k/uL Eosinophils # 0.3 (0-0.7) k/uL Basophils # 0.0 (0-0.2) k/uL Microcytosis Slight PT 9.8 (9.0-12.0) sec INR 1.0 (<1.2) APTT 23.0 (22.0-30.0) sec D-Dimer 0.29 (<0.60) mg/L FEU Sodium 137 (137-145) mmol/L Potassium 4.4 (3.5-5.1) mmol/L Chloride 99 (98-107) mmol/L Carbon Dioxide 27 (22-30) mmol/L Anion Gap 11 mmol/L BUN 11 (7-17) mg/dL Creatinine 0.54 (0.52-1.04) mg/dL Est GFR (CKD-EPI)AfAm >90 (>60 ml/min/1.73 sqM) Est GFR (CKD-EPI)NonAf >90 (>60 ml/min/1.73 sqM) Glucose 98 (74-99) mg/dL Plasma Lactic Acid Juan (0.7-2.0) mmol/L Calcium 9.0 (8.4-10.2) mg/dL Magnesium 1.8 (1.6-2.3) mg/dL Total Bilirubin 0.4 (0.2-1.3) mg/dL AST 19 (14-36) U/L ALT 31 (9-52) U/L Alkaline Phosphatase 70 (38-126) U/L Total Protein 6.2 L (6.3-8.2) g/dL Albumin 3.6 (3.5-5.0) g/dL 08/09/17 Range/Units 19:44 WBC (3.8-10.6) k/uL RBC (3.80-5.40) m/uL Hgb (11.4-16.0) gm/dL Hct (34.0-46.0) % MCV (80.0-100.0) fL MCH (25.0-35.0) pg MCHC (31.0-37.0) g/dL RDW (11.5-15.5) % Plt Count (150-450) k/uL Neutrophils % % Lymphocytes % % Monocytes % % Eosinophils % % Basophils % % Neutrophils # (1.3-7.7) k/uL Lymphocytes # (1.0-4.8) k/uL Monocytes # (0-1.0) k/uL Eosinophils # (0-0.7) k/uL Basophils # (0-0.2) k/uL Microcytosis PT (9.0-12.0) sec INR (<1.2) APTT (22.0-30.0) sec D-Dimer (<0.60) mg/L FEU Sodium (137-145) mmol/L Potassium (3.5-5.1) mmol/L Chloride (98-107) mmol/L Carbon Dioxide (22-30) mmol/L Anion Gap mmol/L BUN (7-17) mg/dL Creatinine (0.52-1.04) mg/dL Est GFR (CKD-EPI)AfAm (>60 ml/min/1.73 sqM) Est GFR (CKD-EPI)NonAf (>60 ml/min/1.73 sqM) Glucose (74-99) mg/dL Plasma Lactic Acid Juan 1.2 (0.7-2.0) mmol/L Calcium (8.4-10.2) mg/dL Magnesium (1.6-2.3) mg/dL Total Bilirubin (0.2-1.3) mg/dL AST (14-36) U/L ALT (9-52) U/L Alkaline Phosphatase (38-126) U/L Total Protein (6.3-8.2) g/dL Albumin (3.5-5.0) g/dL Disposition <Austin Archer - Last Filed: 08/09/17 19:16> <Mark Thao - Last Filed: 08/09/17 20:24> Clinical Impression: Pneumonia, Asthma exacerbation Disposition: ADMITTED IP TO THIS HOSP Condition: Fair Referrals: Litzy Stewart MD [Primary Care Provider] - 1-2 days
[2017-08-09 18:35] LABS: Basophils % (A) 0 %; Eosinophils # (A) 0.3 k/uL (0-0.7); Eosinophils % (A) 2 %; HCT 37.5 % (34.0-46.0); HGB 12.2 gm/dL (11.4-16.0); Lymphocytes # (A) 1.1 k/uL (1.0-4.8); Lymphocytes % (A) 7 %; MCH 25.1 pg (25.0-35.0); MCHC 32.5 g/dL (31.0-37.0); MCV 77.4 fL (80.0-100.0); Mean Platelet Volume 7.2; Microcytosis Slight; Monocytes # (A) 0.6 k/uL (0-1.0); Monocytes % (A) 4 %; Neutrophils # (A) 12.6 k/uL (1.3-7.7); Neutrophils % (A) 86 %; Platelet Count 322 k/uL (150-450); RBC 4.84 m/uL (3.80-5.40); RDW 15.2 % (11.5-15.5); WBC 14.6 k/uL (3.8-10.6)
[2017-08-09 18:39] LABS: ALT 31 U/L (9-52); AST 19 U/L (14-36); Albumin 3.6 g/dL (3.5-5.0); Alkaline Phosphatase 70 U/L (38-126); Anion Gap 11 mmol/L; Blood Urea Nitrogen 11 mg/dL (7-17); Carbon Dioxide 27 mmol/L (22-30); Chloride 99 mmol/L (98-107); Glucose 98 mg/dL (74-99); Magnesium 1.8 mg/dL (1.6-2.3); Potassium 4.4 mmol/L (3.5-5.1); Sodium 137 mmol/L (137-145); Total Bilirubin 0.4 mg/dL (0.2-1.3); Total Protein 6.2 g/dL (6.3-8.2)
[2017-08-09 19:04] LABS: D-Dimer 0.29 mg/L FEU (<0.60); Prothrombin Time 9.8 sec (9.0-12.0)
--- NOTE | 2017-08-09 19:08 | XR ---
EXAMINATION: XR chest 2V DATE AND TIME: 08/09/2017 6:28 PM ORDERING PROVIDER: Austin Archer CLINICAL INDICATION: difficulty breathing TECHNIQUE: PA and lateral COMPARISON: 03/22/2017 DESCRIPTION: The lungs are predominantly clear, except for a band of added opacity in the right bronchial right lo wer lobe emanating from the right hilum, with the appearance suggesting the possibility of early deve loping right lower lobe bronchopneumonia. The pleural spaces are negative. The cardiac silhouette is not enlarged. The mediastinal and pleural silhouettes are unremarkable. The skeletal structures are intact without focal findings. The soft tissues are prominent in volume. IMPRESSION: Findings suggest early developing right lower lobe bronchopneumonia.
[2017-08-09] MEDS ORDERED: ALBUTEROL NEBULIZED 2.5 MG/3 ML INHALATION STA (19:15)
[2017-08-09] MEDS ORDERED: cefTRIAXone IN SWFI 1,000 MG/10 ML SYRINGE IVP STA (19:15)
[2017-08-09] MEDS ORDERED: AZITHROMYCIN 500 MG in DEXTROSE 5% IN WATER 250 ML IVPB STA ×2 (19:16)
[2017-08-09] MEDS ORDERED: LEVOFLOXACIN 750MG-D5W PMX 750 MG in DEXTROSE/WATER 1 150ML.BAG IVPB STA (19:16)
[2017-08-09] MEDS ORDERED: PIPERACILLIN-TAZOBACTAM 3.375 GM in DEXTROSE/WATER 1 50ML.BAG IVPB STA (19:16)
[2017-08-09] MEDS ORDERED: PNEUMONIA PROTOCOL UTILIZED 1 EACH MISC PO PRN (19:18)
[2017-08-09] MEDS: traZODone HCL 50 MG TAB PO SCH (22:23)
[2017-08-09] MEDS: ARIPiprazole 10 MG TAB PO SCH (22:23)
[2017-08-09] MEDS: ACETAMINOPHEN TAB 325 MG TAB PO PRN (22:23)
--- NOTE | 2017-08-09 23:14 | P.CNPUL ---
History of Present Illness Consult date: 08/09/17 Reason for consult: asthma Chief complaint: Shortness of breath cough and wheezing History of present illness: This is a 37-year-old female with history of mild intermittent asthma, bipolar disorder, drug abuse including amphetamine, patient is mostly at [facility] for treatment of amphetamine abuse. Has been basically drug free for almost a month. Patient has been a heavy smoker over the years, and she quit smoking about a month ago. She is also known to have history of pulmonary embolism, lupus, chronic generalized anxiety disorder and depression. Patient was recently admitted to [facility] for symptoms of ALLERGIC reaction of unknown nature, presented mostly with shortness of breath and diffuse rashes/ consistent with acute ALLERGIC dermatitis. Patient was treated with Ventolin, Zantac, Pepcid, and she was supposedly discharged on prednisone. Patient was evaluated today in the ER with a few days' history of increased shortness of breath cough and wheezing. [place] her asthma seems to be acting up on her. Did not improve with the use of albuterol. Hence she was seen in the ER. Chest x- ray was read by the radiologist as early right lower lobe pneumonia, however I reviewed the chest x-ray, and it seems to be relatively unremarkable. Clinically the patient had no fever, no chills, but she did have a bit of leukocytosis with WBC count of 14.6 on admission. Considering the patient was recently in the hospital, and considering the reading by the radiologist, it was felt that the patient may have hospital-acquired pneumonia, admitted, and this consult was initiated. Presently the patient denies any headache, no blurred vision no dizziness, no nausea no vomiting, she does have dry hacking cough, no fever no chills, she does have wheezing and shortness of breath, and feels like a band across her chest. No GI symptoms, denies any symptoms of GERD , no dysuria frequency or urgency. Review of Systems 14 point review of systems were obtained, please refer to pertinent positives in HPI, otherwise remaining systems are negative. Past Medical History Past Medical History: Asthma, Pulmonary Embolus (PE), Skin Disorder Additional Past Medical History / Comment(s): brochitis Lupus anemia, chronic cellulitis-neck/back, HPV, bipolar disorder History of Any Multi-Drug Resistant Organisms: None Reported Past Surgical History: Section, Tubal Ligation Additional Past Surgical History / Comment(s): lupus, x3 c-sections Additional Past Anesthesia/Blood Transfusion Reaction / Comment(s): pt has not had transfusion. Smoking Status: Former smoker - Past Family History Mother Family Medical History: Diabetes Mellitus Additional Family Medical History / Comment(s): lupus, bipolar, drug dependency. Father Additional Family Medical History / Comment(s): "heart problems" Medications and Allergies Home Medications Medication Instructions Recorded Confirmed Type traZODone HCL 50 mg PO HS 07/14/17 08/09/17 History ARIPiprazole [Abilify] 10 mg PO BID #30 tab 07/20/17 08/09/17 Rx Albuterol Nebulized (Conc) 2.5 mg INHALATION RT-Q6H PRN 08/09/17 08/09/17 History [Ventolin Nebulized (Conc)] Cetirizine HCl [Zyrtec] 10 mg PO DAILY 08/09/17 08/09/17 History Doxepin HCl [SINEquan] 50 mg PO HS 08/09/17 08/09/17 History Famotidine [Pepcid] 20 mg PO BID 08/09/17 08/09/17 History Multivitamins, Thera [Multivitamin 1 tab PO DAILY 08/09/17 08/09/17 History (formulary)] predniSONE 20 mg PO DAILY 08/09/17 08/09/17 History Allergies Allergy/AdvReac Type Severity Reaction Status Date / Time No Known Allergies Allergy Verified 08/09/17 17:47 Physical Exam Vitals: Vital Signs Temp Pulse Pulse Resp BP BP Pulse Ox 08/09/17 21:52 98.0 F 89 16 116/57 97 08/09/17 19:34 111 H 20 08/09/17 19:24 110 H 18 08/09/17 17:57 18 08/09/17 17:56 113 H 20 08/09/17 17:44 111 H 22 08/09/17 17:14 98.2 F 113 H 20 179/99 96 Intake and Output 08/09/17 08/09/17 08/09/17 06:59 14:59 22:59 Intake Total 100 Balance 100 Intake: Oral 100 Other: Weight 125 kg Physical Exam: Revealed a 37-year-old female in no distress. Head: Atraumatic, normocephalic. HEENT:[Neck is supple.] [No neck masses.] [No thyromegaly.] [No JVD.] PERRLA, EOMI, no icterus. Moist mucous membranes. Chest: [Diminished breath sounds at the bases, rhonchi and wheezes noted bilaterally more so on forced expiratory maneuver..] Cardiac Exam: [Normal S1 and S2, no S3 gallop, no murmur.] Abdomen: [Soft, nontender, no megaly, no rebound, no guarding, normal bowel sounds.] Extremities: [No clubbing, no edema, no cyanosis.] Neurological Exam: [No focal neurologic deficit. Lymphatics: No lymphadenopathy. Psychiatric: Normal mood affect and mental status examination.] Results - Laboratory Findings CBC and BMP: 08/09/17 17:55 08/09/17 17:55 PT/INR, D-dimer PT 9.8 sec (9.0-12.0) 08/09/17 18:32 INR 1.0 (<1.2) 08/09/17 18:32 D-Dimer 0.29 mg/L FEU (<0.60) 08/09/17 18:32 Abnormal lab findings: Abnormal Labs 08/09/17 08/09/17 17:55 17:55 WBC 14.6 H MCV 77.4 L Neutrophils # 12.6 H Total Protein 6.2 L - Diagnostic Findings Chest x-ray: image reviewed (I reviewed the chest x-ray, did not feel that the patient has any infiltrate. The right lower lobe abnormality is mostly an abnormality of atelectasis.) Assessment and Plan Assessment: Impression: 1 acute exacerbation of bronchial asthma 2 acute tracheobronchitis, strongly doubt pneumonia. 3 history of multiple comorbidities including possible lupus, previous history of pulmonary embolism, history of chronic anemia, history of methamphetamine abuse, history of bipolar disorder. Recommendation: Continue albuterol, ipratropium bromide, methylprednisolone, continue Zosyn, will add Symbicort, Protonix, Singulair, Zyrtec, and if improved in the next 24 hours, consider discharge planning and follow-up on outpatient basis. Time with Patient: Greater than 30
[2017-08-09] MEDS: FAMOTIDINE 20 MG TAB PO SCH (23:56)
[2017-08-09] MEDS: LORATADINE 10 MG TAB PO SCH (23:56)
[2017-08-09] MEDS: PIPERACILLIN-TAZOBACTAM 3.375 GM in DEXTROSE/WATER 1 50ML.BAG IVPB SCH (23:57)
[2017-08-09] MEDS: methylPREDNISolone SOD SUCCI 125 MG/2 ML VIAL IV SCH (23:57)
[2017-08-10] MEDS: IPRATROPIUM-ALBUTEROL 3 ML NEB INHALATION PRN ×4 (07:26→20:59)
[2017-08-10] MEDS: SYMBICORT 160-4.5 MCG INHALER INHALATION SCH ×2 (07:26→20:59)
[2017-08-10] MEDS: PIPERACILLIN-TAZOBACTAM 3.375 GM in DEXTROSE/WATER 1 50ML.BAG IVPB SCH ×3 (07:47→23:32)
[2017-08-10] MEDS: FAMOTIDINE 20 MG TAB PO SCH (07:48)
[2017-08-10] MEDS: methylPREDNISolone SOD SUCCI 125 MG/2 ML VIAL IV SCH ×3 (07:48→23:33)
[2017-08-10] MEDS: ARIPiprazole 10 MG TAB PO SCH ×2 (07:48→21:13)
[2017-08-10] MEDS: LORATADINE 10 MG TAB PO SCH (07:48)
[2017-08-10] MEDS: ACETAMINOPHEN TAB 325 MG TAB PO PRN ×2 (07:50→15:55)
--- NOTE | 2017-08-10 11:28 | XR ---
EXAMINATION TYPE: XR chest 2V DATE OF EXAM: 08/10/2017 COMPARISON: Chest x-ray 08/09/2017 HISTORY: Pneumonia, asthma TECHNIQUE: Frontal and lateral views of the chest are obtained. FINDINGS: There is no focal air space opacity, pleural effusion, or pneumothorax seen. The cardiac silhouette size is within normal limits. The osseous structures are intact. There is bronchial wall thickening. IMPRESSION: Correlate for reactive airways disease, bronchitis. Follow-up as indicated.
[2017-08-10] MEDS ORDERED: ALBUTEROL NEBULIZED 2.5 MG/3 ML INHALATION PRN (11:31)
[2017-08-10] MEDS ORDERED: FAMOTIDINE 20 MG TAB PO SCH (11:45)
[2017-08-10] MEDS ORDERED: NON-FORMULARY DRUG (Cetirizine Hcl [Zyrtec] 10 MG) PO SCH (11:45)
--- NOTE | 2017-08-10 11:52 | P.HPIM ---
History of Present Illness H&P Date: 08/10/17 Chief Complaint: Worsening shortness of breath This is a 37-year-old female with a known past medical history of asthma, PE, lupus and bipolar. Patient has been staying at [facility] for rehabilitation due to amphetamine abuse. She has been drug-free for about a month. Patient was recently at [facility] for ALLERGIC reaction which is likely an ALLERGIC dermatitis. She presented we'll at that time with symptoms of shortness of breath and rash. She was given antihistamines and steroids. Patient presents to the ER yesterday due to having increasing shortness of breath with cough and wheezing over the last few days. She was admitted to the hospital and started treatment for possible pneumonia and asthma exacerbation. She is currently on Levaquin and Zosyn as well as IV Solu-Medrol and bronchodilators. Pulmonary service is consulted. Chest x-ray showed possible developing right lower lobe pneumonia. White count admission 14.6. Repeat chest x-ray shows correlate for reactive airway disease, bronchitis. Patient reports chest tightness with her shortness of breath. Denies any nausea or vomiting. Complaining of some constipation last bowel movement 2 days ago. Denies any urinary symptoms. Review of Systems Please refer to HPI otherwise unremarkable Past Medical History Past Medical History: Asthma, Pulmonary Embolus (PE), Skin Disorder Additional Past Medical History / Comment(s): brochitis Lupus anemia, chronic cellulitis-neck/back, HPV, bipolar disorder History of Any Multi-Drug Resistant Organisms: None Reported Past Surgical History: Section, Tubal Ligation Additional Past Surgical History / Comment(s): lupus, x3 c-sections Additional Past Anesthesia/Blood Transfusion Reaction / Comment(s): pt has not had transfusion. Smoking Status: Former smoker - Past Family History Mother Family Medical History: Diabetes Mellitus Additional Family Medical History / Comment(s): lupus, bipolar, drug dependency. Father Additional Family Medical History / Comment(s): "heart problems" Medications and Allergies Home Medications Medication Instructions Recorded Confirmed Type traZODone HCL 50 mg PO HS 07/14/17 08/09/17 History ARIPiprazole [Abilify] 10 mg PO BID #30 tab 07/20/17 08/09/17 Rx Albuterol Nebulized (Conc) 2.5 mg INHALATION RT-Q6H PRN 08/09/17 08/09/17 History [Ventolin Nebulized (Conc)] Cetirizine HCl [Zyrtec] 10 mg PO DAILY 08/09/17 08/09/17 History Doxepin HCl [SINEquan] 50 mg PO HS 08/09/17 08/09/17 History Famotidine [Pepcid] 20 mg PO BID 08/09/17 08/09/17 History Multivitamins, Thera [Multivitamin 1 tab PO DAILY 08/09/17 08/09/17 History (formulary)] predniSONE 20 mg PO DAILY 08/09/17 08/09/17 History Allergies Allergy/AdvReac Type Severity Reaction Status Date / Time No Known Allergies Allergy Verified 08/09/17 17:47 Physical Exam Vitals: Vital Signs Temp Pulse Pulse Resp BP BP Pulse Ox 08/10/17 11:10 95 08/10/17 10:59 94 08/10/17 07:36 94 08/10/17 07:26 92 08/10/17 06:22 97.0 F L 65 18 106/58 96 08/09/17 23:00 98.6 F 91 16 124/73 96 08/09/17 21:52 98.0 F 89 16 116/57 97 08/09/17 19:34 111 H 20 08/09/17 19:24 110 H 18 08/09/17 17:57 18 08/09/17 17:56 113 H 20 08/09/17 17:44 111 H 22 08/09/17 17:14 98.2 F 113 H 20 179/99 96 Intake and Output 08/09/17 08/10/17 08/10/17 22:59 06:59 14:59 Intake Total 100 Balance 100 Intake: Oral 100 Other: Voiding Method Toilet # Voids 1 Weight 125 kg Head normocephalic Neck supple Lungs wheezing noted bilaterally Heart regular rate and rhythm S1-S2, no rub or gallop Abdomen is soft nontender nondistended positive bowel sounds no hepatosplenomegaly Extremities no edema Neuro alert and orientated to 3 Results CBC & Chem 7: 08/09/17 17:55 08/09/17 17:55 Labs: Abnormal Lab Results - Last 24 Hours (Table) 08/09/17 08/09/17 Range/Units 17:55 17:55 WBC 14.6 H (3.8-10.6) k/uL MCV 77.4 L (80.0-100.0) fL Neutrophils # 12.6 H (1.3-7.7) k/uL Total Protein 6.2 L (6.3-8.2) g/dL Thrombosis Risk Factor Assmnt - Choose All That Apply Each Risk Factor Represents 3 Points: History of DVT/PE Thrombosis Risk Factor Assessment Total Risk Factor Score: 3 Thrombosis Risk Factor Assessment Level: Moderate Risk Assessment and Plan Assessment: 1. Acute asthma exacerbation: Patient is been placed on IV Solu-Medrol will change bronchodilators to 4 times a day and as needed. Pulmonary service following 2. Acute tracheobronchitis: Repeat chest x-ray states correlate for reactive airway disease and bronchitis. Patient currently on Levaquin and Zosyn. Followed by pulmonary service and they doubt patient has pneumonia 3. Recent hospitalization with ALLERGIC reaction resume patient's Pepcid and antihistamine. Patient also was on prednisone. This will be held while patient is on IV Solu-Medrol. No evidence of rash 4. History of methamphetamine abuse has been undergoing rehabilitation at [facility] 5. History of lupus 6. History of bipolar disorder 7. Prior history of smoking quit about a month ago 8. Constipation start Colace GI prophylaxis Pepcid and DVT prophylaxis Lovenox Time with Patient: Greater than 30 (Greater than 60% of the total time spent in counseling and coordination of care.I performed an examination of the patient and discussed their management with the physician Toy Electric Train Repairer. I have reviewed the Physician Toy Electric Train Repairer's notes and agree with the documented findings and plan of care)
--- NOTE | 2017-08-10 12:35 | P.PN ---
Subjective Progress Note Date: 08/10/17 Principal diagnosis: Acute exacerbation of bronchial asthma with acute tracheobronchitis This is a 37-year-old female with history of mild intermittent asthma, bipolar disorder, drug abuse including amphetamine, patient is mostly at [place] for treatment of amphetamine abuse. Has been basically drug free for almost a month. Patient has been a heavy smoker over the years, and she quit smoking about a month ago. She is also known to have history of pulmonary embolism, lupus, chronic generalized anxiety disorder and depression. Patient was recently admitted to [facility] for symptoms of ALLERGIC reaction of unknown nature, presented mostly with shortness of breath and diffuse rashes/ consistent with acute ALLERGIC dermatitis. Patient was treated with Ventolin, Zantac, Pepcid, and she was supposedly discharged on prednisone. Patient was evaluated today in the ER with a few days' history of increased shortness of breath cough and wheezing. [place] her asthma seems to be acting up on her. Did not improve with the use of albuterol. Hence she was seen in the ER. Chest x- ray was read by the radiologist as early right lower lobe pneumonia, however I reviewed the chest x-ray, and it seems to be relatively unremarkable. Clinically the patient had no fever, no chills, but she did have a bit of leukocytosis with WBC count of 14.6 on admission. Considering the patient was recently in the hospital, and considering the reading by the radiologist, it was felt that the patient may have hospital-acquired pneumonia, admitted, and this consult was initiated. Presently the patient denies any headache, no blurred vision no dizziness, no nausea no vomiting, she does have dry hacking cough, no fever no chills, she does have wheezing and shortness of breath, and feels like a band across her chest. No GI symptoms, denies any symptoms of GERD , no dysuria frequency or urgency. On 08/10/2017 patient seen again in follow-up on medical surgical floor. Denies worsening dyspnea, lung sounds are still positive for some residual scattered wheezes, and some scattered rhonchi, overall patient remains stable, room air pulse ox is 96%, vital signs are stable, she is afebrile, no chest x-ray has been reviewed and showed bronchial wall thickening, reactive airways disease, bronchitis. No pneumonia. She remains on Zosyn and Levaquin, high-dose steroids, nebulized bronchodilators, and she is improving. Objective - Vital Signs Vital signs: Vital Signs Temp 97.0 F L 08/10/17 06:22 Pulse 95 08/10/17 11:10 Resp 18 08/10/17 06:22 BP 106/58 08/10/17 06:22 Pulse Ox 96 08/10/17 06:22 Intake & Output 08/09/17 08/10/17 08/10/17 18:59 06:59 18:59 Intake Total 100 Balance 100 Weight 122.47 kg 125 kg Intake: Oral 100 Other: Voiding Method Toilet # Voids 1 2 - Exam Physical Exam: Revealed a 37-year-old female in no distress. Head: Atraumatic, normocephalic. HEENT:[Neck is supple.] [No neck masses.] [No thyromegaly.] [No JVD.] PERRLA, EOMI, no icterus. Moist mucous membranes. Chest: [Diminished breath sounds at the bases, rhonchi and wheezes noted bilaterally more so on forced expiratory maneuver..] Cardiac Exam: [Normal S1 and S2, no S3 gallop, no murmur.] Abdomen: [Soft, nontender, no megaly, no rebound, no guarding, normal bowel sounds.] Extremities: [No clubbing, no edema, no cyanosis.] Neurological Exam: [No focal neurologic deficit. Lymphatics: No lymphadenopathy. Psychiatric: Normal mood affect and mental status examination.] - Labs CBC & Chem 7: 08/09/17 17:55 08/09/17 17:55 Labs: Abnormal Lab Results - Last 24 Hours (Table) 08/09/17 08/09/17 Range/Units 17:55 17:55 WBC 14.6 H (3.8-10.6) k/uL MCV 77.4 L (80.0-100.0) fL Neutrophils # 12.6 H (1.3-7.7) k/uL Total Protein 6.2 L (6.3-8.2) g/dL Assessment and Plan Plan: Assessment: 1 acute exacerbation of bronchial asthma 2 acute tracheobronchitis, strongly doubt pneumonia. 3 history of multiple comorbidities including possible lupus, previous history of pulmonary embolism, history of chronic anemia, history of methamphetamine abuse, history of bipolar disorder. Recommendation: Patient is improving, no acute events overnight, vital signs are stable, today' s chest x-ray has been reviewed, and showed reactive airways disease, bronchitis , no infiltrates noted, suggesting pneumonia. Patient remains stable, on room air, no worsening dyspnea, tolerating ambulation. From pulmonary standpoint could be considered for discharge home today on an oral course of Levaquin, prednisone taper, in addition to her usual Singulair, Zyrtec maintenance inhalers. Follow up with Dr. Malcolm in the office in one week. I performed a history & physical examination of the patient and discussed their management with my nurse practitioner, Priti Mcdonald. I reviewed the nurse practitioner's note and agree with the documented findings and plan of care. Lung sounds are positive for diffuse wheezes, rhonchi. The findings and the impression was discussed with the patient. I attest to the documentation by the nurse practitioner. Time with Patient: Less than 30
[2017-08-10] MEDS: ENOXAPARIN 40 MG/0.4 ML SYRINGE SQ SCH (12:44)
[2017-08-10] MEDS: DOCUSATE 100 MG CAP PO SCH ×2 (12:45→21:15)
[2017-08-10 17:04] LABS: Glucose,Whole Blood 187 mg/dL (75-99)
[2017-08-10] MEDS ORDERED: LEVOFLOXACIN 750MG-D5W PMX 750 MG in DEXTROSE/WATER 1 150ML.BAG IVPB SCH (18:00)
[2017-08-10] MEDS: INSULIN ASPART 100 UNIT/ML 1 ML 10 ML VIAL SQ SCH ×2 (18:13→21:14)
[2017-08-10 20:22] LABS: Glucose,Whole Blood 153 mg/dL (75-99)
[2017-08-10] MEDS: traZODone HCL 50 MG TAB PO SCH (21:13)
[2017-08-10] MEDS: DOXEPIN 25 MG CAP PO SCH (21:13)
[2017-08-10] MEDS: LEVOFLOXACIN 750 MG TAB PO SCH (21:14)
[2017-08-11 07:30] LABS: Glucose,Whole Blood 119 mg/dL (75-99)
[2017-08-11 07:50] LABS: Basophils % (A) 0 %; Eosinophils % (A) 0 %; HCT 38.9 % (34.0-46.0); HGB 11.9 gm/dL (11.4-16.0); Hypochromasia Moderate; Lymphocytes # (A) 0.9 k/uL (1.0-4.8); Lymphocytes % (A) 7 %; MCH 24.6 pg (25.0-35.0); MCHC 30.7 g/dL (31.0-37.0); MCV 80.1 fL (80.0-100.0); Mean Platelet Volume 6.3; Monocytes # (A) 0.4 k/uL (0-1.0); Monocytes % (A) 3 %; Neutrophils # (A) 11.5 k/uL (1.3-7.7); Neutrophils % (A) 89 %; Platelet Count 459 k/uL (150-450); RBC 4.85 m/uL (3.80-5.40); WBC 12.9 k/uL (3.8-10.6)
[2017-08-11] MEDS: IPRATROPIUM-ALBUTEROL 3 ML NEB INHALATION PRN ×3 (07:50→20:37)
[2017-08-11] MEDS: SYMBICORT 160-4.5 MCG INHALER INHALATION SCH ×2 (07:50→20:37)
[2017-08-11 08:17] LABS: ALT 29 U/L (9-52); AST 16 U/L (14-36); Albumin 3.5 g/dL (3.5-5.0); Alkaline Phosphatase 57 U/L (38-126); Anion Gap 11 mmol/L; Blood Urea Nitrogen 16 mg/dL (7-17); Calcium 9.2 mg/dL (8.4-10.2); Carbon Dioxide 28 mmol/L (22-30); Chloride 98 mmol/L (98-107); Glucose 116 mg/dL (74-99); Potassium 5.1 mmol/L (3.5-5.1); Sodium 137 mmol/L (137-145); Total Bilirubin 0.4 mg/dL (0.2-1.3); Total Protein 6.2 g/dL (6.3-8.2)
[2017-08-11] MEDS: INSULIN ASPART 100 UNIT/ML 1 ML 10 ML VIAL SQ SCH ×4 (08:27→22:01)
[2017-08-11] MEDS: MULTIVITAMINS, THERA 1 EACH TAB PO SCH (08:27)
[2017-08-11] MEDS: LORATADINE 10 MG TAB PO SCH (08:28)
[2017-08-11] MEDS: PIPERACILLIN-TAZOBACTAM 3.375 GM in DEXTROSE/WATER 1 50ML.BAG IVPB SCH ×3 (08:28→23:25)
[2017-08-11] MEDS: methylPREDNISolone SOD SUCCI 125 MG/2 ML VIAL IV SCH ×4 (08:28→23:25)
[2017-08-11] MEDS: ARIPiprazole 10 MG TAB PO SCH ×2 (08:28→20:24)
[2017-08-11] MEDS: ENOXAPARIN 40 MG/0.4 ML SYRINGE SQ SCH (08:28)
[2017-08-11] MEDS: DOCUSATE 100 MG CAP PO SCH ×2 (08:28→20:25)
[2017-08-11] MEDS: ACETAMINOPHEN TAB 325 MG TAB PO PRN ×2 (10:33→18:32)
--- NOTE | 2017-08-11 12:22 | P.PN ---
Subjective Progress Note Date: 08/11/17 Principal diagnosis: Acute exacerbation of bronchial asthma with acute tracheobronchitis This is a 37-year-old female with history of mild intermittent asthma, bipolar disorder, drug abuse including amphetamine, patient is mostly at [place] for treatment of amphetamine abuse. Has been basically drug free for almost a month. Patient has been a heavy smoker over the years, and she quit smoking about a month ago. She is also known to have history of pulmonary embolism, lupus, chronic generalized anxiety disorder and depression. Patient was recently admitted to [facility] for symptoms of ALLERGIC reaction of unknown nature, presented mostly with shortness of breath and diffuse rashes/ consistent with acute ALLERGIC dermatitis. Patient was treated with Ventolin, Zantac, Pepcid, and she was supposedly discharged on prednisone. Patient was evaluated today in the ER with a few days' history of increased shortness of breath cough and wheezing. [place] her asthma seems to be acting up on her. Did not improve with the use of albuterol. Hence she was seen in the ER. Chest x- ray was read by the radiologist as early right lower lobe pneumonia, however I reviewed the chest x-ray, and it seems to be relatively unremarkable. Clinically the patient had no fever, no chills, but she did have a bit of leukocytosis with WBC count of 14.6 on admission. Considering the patient was recently in the hospital, and considering the reading by the radiologist, it was felt that the patient may have hospital-acquired pneumonia, admitted, and this consult was initiated. Presently the patient denies any headache, no blurred vision no dizziness, no nausea no vomiting, she does have dry hacking cough, no fever no chills, she does have wheezing and shortness of breath, and feels like a band across her chest. No GI symptoms, denies any symptoms of GERD , no dysuria frequency or urgency. On 08/10/2017 patient seen again in follow-up on medical surgical floor. Denies worsening dyspnea, lung sounds are still positive for some residual scattered wheezes, and some scattered rhonchi, overall patient remains stable, room air pulse ox is 96%, vital signs are stable, she is afebrile, no chest x-ray has been reviewed and showed bronchial wall thickening, reactive airways disease, bronchitis. No pneumonia. She remains on Zosyn and Levaquin, high-dose steroids, nebulized bronchodilators, and she is improving. On 08/11/2017 patient seen in follow-up on medical surgical floor. States she is more raspy and congested today, lung sounds are positive for diffuse wheezes , and scattered rhonchi, and has a congested cough. Room air pulse ox is 96% , vital signs are stable, she is afebrile. Today's labs have been reviewed, white count is trending down, and is down to 12.9, hemoglobin is 7.9, electrolytes and renal profile are all within normal limits. Patient remains on Zosyn and Levaquin, high-dose steroids, nebulized bronchodilators. Objective - Vital Signs Vital signs: Vital Signs Temp 97.8 F 08/11/17 06:22 Pulse 74 08/11/17 08:02 Resp 16 08/11/17 06:22 BP 103/58 08/11/17 06:22 Pulse Ox 96 08/11/17 07:52 Intake & Output 08/10/17 08/11/17 08/11/17 18:59 06:59 18:59 Other: # Voids 1 1 - Exam Physical Exam: Revealed a 37-year-old female in no distress. Head: Atraumatic, normocephalic. HEENT:[Neck is supple.] [No neck masses.] [No thyromegaly.] [No JVD.] PERRLA, EOMI, no icterus. Moist mucous membranes. Chest: [Diminished breath sounds at the bases, rhonchi and wheezes noted bilaterally more so on forced expiratory maneuver..] Cardiac Exam: [Normal S1 and S2, no S3 gallop, no murmur.] Abdomen: [Soft, nontender, no megaly, no rebound, no guarding, normal bowel sounds.] Extremities: [No clubbing, no edema, no cyanosis.] Neurological Exam: [No focal neurologic deficit. Lymphatics: No lymphadenopathy. Psychiatric: Normal mood affect and mental status examination.] - Labs CBC & Chem 7: 08/11/17 07:14 08/11/17 07:14 Labs: Abnormal Lab Results - Last 24 Hours (Table) 08/10/17 08/10/17 08/11/17 Range/Units 17:02 20:21 07:14 WBC 12.9 H (3.8-10.6) k/uL MCH 24.6 L (25.0-35.0) pg MCHC 30.7 L (31.0-37.0) g/dL Plt Count 459 H (150-450) k/uL Neutrophils # 11.5 H (1.3-7.7) k/uL Lymphocytes # 0.9 L (1.0-4.8) k/uL Glucose (74-99) mg/dL POC Glucose (mg/dL) 187 H 153 H (75-99) mg/dL Total Protein (6.3-8.2) g/dL 08/11/17 08/11/17 Range/Units 07:14 07:25 WBC (3.8-10.6) k/uL MCH (25.0-35.0) pg MCHC (31.0-37.0) g/dL Plt Count (150-450) k/uL Neutrophils # (1.3-7.7) k/uL Lymphocytes # (1.0-4.8) k/uL Glucose 116 H (74-99) mg/dL POC Glucose (mg/dL) 119 H (75-99) mg/dL Total Protein 6.2 L (6.3-8.2) g/dL Microbiology - Last 24 Hours (Table) 08/09/17 19:44 Blood Culture - Preliminary Blood No Growth after 24 hours Assessment and Plan Plan: Assessment: 1 acute exacerbation of bronchial asthma 2 acute tracheobronchitis, strongly doubt pneumonia. 3 history of multiple comorbidities including possible lupus, previous history of pulmonary embolism, history of chronic anemia, history of methamphetamine abuse, history of bipolar disorder. Recommendation: More congested and wheezy on today's exam, will increase the Solu-Medrol to 60 mg every 6 hours, continue with antibiotics, continue with nebulized bronchodilators, patient not ready for discharge. Continue to follow. I performed a history & physical examination of the patient and discussed their management with my nurse practitioner, Priti Mcdonald. I reviewed the nurse practitioner's note and agree with the documented findings and plan of care. Lung sounds are positive for diffuse wheezes, rhonchi. The findings and the impression was discussed with the patient. I attest to the documentation by the nurse practitioner. Time with Patient: Less than 30
[2017-08-11 12:46] LABS: Glucose,Whole Blood 156 mg/dL (75-99)
[2017-08-11] MEDS: guaiFENesin 600 MG TABLET.ER PO SCH ×2 (13:15→20:24)
--- NOTE | 2017-08-11 13:39 | P.PN ---
Subjective Progress Note Date: 08/11/17 This is a 37-year-old female with a known past medical history of asthma, PE, lupus and bipolar. Patient has been staying at [place] for rehabilitation due to amphetamine abuse. She has been drug-free for about a month. Patient was recently at [facility] for ALLERGIC reaction which is likely an ALLERGIC dermatitis. She presented we'll at that time with symptoms of shortness of breath and rash. She was given antihistamines and steroids. Patient presents to the ER yesterday due to having increasing shortness of breath with cough and wheezing over the last few days. She was admitted to the hospital and started treatment for possible pneumonia and asthma exacerbation. She is currently on Levaquin and Zosyn as well as IV Solu-Medrol and bronchodilators. Pulmonary service is consulted. Chest x-ray showed possible developing right lower lobe pneumonia. White count admission 14.6. Repeat chest x-ray shows correlate for reactive airway disease, bronchitis. Patient reports chest tightness with her shortness of breath. Denies any nausea or vomiting. Complaining of some constipation last bowel movement 2 days ago. Denies any urinary symptoms. 08/11/2017 patient still complaining of some shortness of breath with walking. Also still complaining of some wheezing and chest congestion. Mucinex will be added. Patient does not feel ready for discharge. She is concerned about going outside in the heat. She was able to have a bowel movement. Objective - Vital Signs Vital signs: Vital Signs Temp 97.8 F 08/11/17 06:22 Pulse 80 08/11/17 11:30 Resp 16 08/11/17 06:22 BP 103/58 08/11/17 06:22 Pulse Ox 96 08/11/17 07:52 Intake & Output 08/10/17 08/11/17 08/11/17 18:59 06:59 18:59 Other: # Voids 1 1 - Exam Head normocephalic Neck supple Lungs wheezing bilaterally with coarse breath sounds Heart regular rate and rhythm S1-S2, no rub or gallop Abdomen is soft nontender nondistended positive bowel sounds no hepatosplenomegaly Extremities no edema Neuro alert and orientated to 3 - Labs CBC & Chem 7: 08/11/17 07:14 08/11/17 07:14 Labs: Abnormal Lab Results - Last 24 Hours (Table) 08/10/17 08/10/17 08/11/17 Range/Units 17:02 20:21 07:14 WBC 12.9 H (3.8-10.6) k/uL MCH 24.6 L (25.0-35.0) pg MCHC 30.7 L (31.0-37.0) g/dL Plt Count 459 H (150-450) k/uL Neutrophils # 11.5 H (1.3-7.7) k/uL Lymphocytes # 0.9 L (1.0-4.8) k/uL Glucose (74-99) mg/dL POC Glucose (mg/dL) 187 H 153 H (75-99) mg/dL Total Protein (6.3-8.2) g/dL 08/11/17 08/11/17 08/11/17 Range/Units 07:14 07:25 12:45 WBC (3.8-10.6) k/uL MCH (25.0-35.0) pg MCHC (31.0-37.0) g/dL Plt Count (150-450) k/uL Neutrophils # (1.3-7.7) k/uL Lymphocytes # (1.0-4.8) k/uL Glucose 116 H (74-99) mg/dL POC Glucose (mg/dL) 119 H 156 H (75-99) mg/dL Total Protein 6.2 L (6.3-8.2) g/dL Microbiology - Last 24 Hours (Table) 08/09/17 19:44 Blood Culture - Preliminary Blood No Growth after 24 hours Assessment and Plan Assessment: 1. Acute asthma exacerbation: Patient is been placed on IV Solu-Medrol will change bronchodilators to 4 times a day and as needed. Pulmonary service following 2. Acute tracheobronchitis: Repeat chest x-ray states correlate for reactive airway disease and bronchitis. Patient currently on Levaquin and Zosyn. Followed by pulmonary service and they doubt patient has pneumonia. Mucinex added. Awaiting sputum culture 3. Recent hospitalization with ALLERGIC reaction resume patient's Pepcid and antihistamine. Patient also was on prednisone. This will be held while patient is on IV Solu-Medrol. No evidence of rash 4. History of methamphetamine abuse has been undergoing rehabilitation at [facility] 5. History of lupus 6. History of bipolar disorder 7. Prior history of smoking quit about a month ago 8. Constipation start Colace GI prophylaxis Pepcid and DVT prophylaxis Lovenox I performed an examination of the patient and discussed their management with the physician Deckhand Maintenance. I have reviewed the Physician Deckhand Maintenance's notes and agree with the documented findings and plan of care
[2017-08-11 17:00] LABS: Glucose,Whole Blood 223 mg/dL (75-99)
[2017-08-11] MEDS: MONTELUKAST 10 MG TAB PO SCH (20:24)
[2017-08-11] MEDS: DOXEPIN 25 MG CAP PO SCH (20:24)
[2017-08-11] MEDS: traZODone HCL 50 MG TAB PO SCH (20:24)
[2017-08-11] MEDS: LEVOFLOXACIN 750 MG TAB PO SCH (20:24)
[2017-08-11 22:27] LABS: Glucose,Whole Blood 150 mg/dL (75-99)
[2017-08-12] MEDS: methylPREDNISolone SOD SUCCI 125 MG/2 ML VIAL IV SCH ×4 (06:32→23:29)
[2017-08-12] MEDS: SYMBICORT 160-4.5 MCG INHALER INHALATION SCH ×2 (07:12→20:17)
[2017-08-12] MEDS: IPRATROPIUM-ALBUTEROL 3 ML NEB INHALATION PRN ×5 (07:12→23:52)
[2017-08-12 07:28] LABS: Glucose,Whole Blood 141 mg/dL (75-99)
[2017-08-12 08:29] LABS: Basophils % (A) 0 %; Eosinophils % (A) 0 %; HCT 40.1 % (34.0-46.0); HGB 12.6 gm/dL (11.4-16.0); Lymphocytes % (A) 8 %; MCH 24.8 pg (25.0-35.0); MCHC 31.4 g/dL (31.0-37.0); MCV 78.9 fL (80.0-100.0); Mean Platelet Volume 6.3; Monocytes # (A) 0.4 k/uL (0-1.0); Monocytes % (A) 3 %; Neutrophils # (A) 11.5 k/uL (1.3-7.7); Neutrophils % (A) 89 %; Platelet Count 438 k/uL (150-450); RBC 5.08 m/uL (3.80-5.40); RDW 15.2 % (11.5-15.5); WBC 12.9 k/uL (3.8-10.6)
[2017-08-12] MEDS: DOCUSATE 100 MG CAP PO SCH ×2 (08:29→21:55)
[2017-08-12] MEDS: LORATADINE 10 MG TAB PO SCH (08:30)
[2017-08-12] MEDS: ENOXAPARIN 40 MG/0.4 ML SYRINGE SQ SCH (08:30)
[2017-08-12] MEDS: INSULIN ASPART 100 UNIT/ML 1 ML 10 ML VIAL SQ SCH ×4 (08:30→21:56)
[2017-08-12] MEDS: MULTIVITAMINS, THERA 1 EACH TAB PO SCH (08:30)
[2017-08-12] MEDS: ARIPiprazole 10 MG TAB PO SCH ×2 (08:30→21:55)
[2017-08-12] MEDS: guaiFENesin 600 MG TABLET.ER PO SCH ×2 (08:30→21:54)
[2017-08-12 08:43] LABS: ALT 38 U/L (9-52); AST 18 U/L (14-36); Albumin 3.5 g/dL (3.5-5.0); Alkaline Phosphatase 60 U/L (38-126); Anion Gap 11 mmol/L; Blood Urea Nitrogen 16 mg/dL (7-17); Calcium 9.3 mg/dL (8.4-10.2); Carbon Dioxide 28 mmol/L (22-30); Chloride 98 mmol/L (98-107); Glucose 125 mg/dL (74-99); Potassium 4.8 mmol/L (3.5-5.1); Sodium 137 mmol/L (137-145); Total Bilirubin 0.4 mg/dL (0.2-1.3); Total Protein 6.1 g/dL (6.3-8.2)
[2017-08-12] MEDS: PIPERACILLIN-TAZOBACTAM 3.375 GM in DEXTROSE/WATER 1 50ML.BAG IVPB SCH ×3 (09:38→23:29)
--- NOTE | 2017-08-12 11:27 | P.PN ---
Subjective Progress Note Date: 08/12/17 Principal diagnosis: Acute exacerbation of mild intermittent chronic bronchial asthma, complicated by acute tracheobronchitis. This is a 37-year-old female with history of mild intermittent asthma, bipolar disorder, drug abuse including amphetamine, patient is mostly at [place] for treatment of amphetamine abuse. Has been basically drug free for almost a month. Patient has been a heavy smoker over the years, and she quit smoking about a month ago. She is also known to have history of pulmonary embolism, lupus, chronic generalized anxiety disorder and depression. Patient was recently admitted to [facility] for symptoms of ALLERGIC reaction of unknown nature, presented mostly with shortness of breath and diffuse rashes/ consistent with acute ALLERGIC dermatitis. Patient was treated with Ventolin, Zantac, Pepcid, and she was supposedly discharged on prednisone. Patient was evaluated today in the ER with a few days' history of increased shortness of breath cough and wheezing. [place] her asthma seems to be acting up on her. Did not improve with the use of albuterol. Hence she was seen in the ER. Chest x- ray was read by the radiologist as early right lower lobe pneumonia, however I reviewed the chest x-ray, and it seems to be relatively unremarkable. Clinically the patient had no fever, no chills, but she did have a bit of leukocytosis with WBC count of 14.6 on admission. Considering the patient was recently in the hospital, and considering the reading by the radiologist, it was felt that the patient may have hospital-acquired pneumonia, admitted, and this consult was initiated. Presently the patient denies any headache, no blurred vision no dizziness, no nausea no vomiting, she does have dry hacking cough, no fever no chills, she does have wheezing and shortness of breath, and feels like a band across her chest. No GI symptoms, denies any symptoms of GERD , no dysuria frequency or urgency. On 08/10/2017 patient seen again in follow-up on medical surgical floor. Denies worsening dyspnea, lung sounds are still positive for some residual scattered wheezes, and some scattered rhonchi, overall patient remains stable, room air pulse ox is 96%, vital signs are stable, she is afebrile, no chest x-ray has been reviewed and showed bronchial wall thickening, reactive airways disease, bronchitis. No pneumonia. She remains on Zosyn and Levaquin, high-dose steroids, nebulized bronchodilators, and she is improving. On 08/11/2017 patient seen in follow-up on medical surgical floor. States she is more raspy and congested today, lung sounds are positive for diffuse wheezes , and scattered rhonchi, and has a congested cough. Room air pulse ox is 96% , vital signs are stable, she is afebrile. Today's labs have been reviewed, white count is trending down, and is down to 12.9, hemoglobin is 7.9, electrolytes and renal profile are all within normal limits. Patient remains on Zosyn and Levaquin, high-dose steroids, nebulized bronchodilators. The patient is seen again today 08/12/2017 in follow-up on the regular medical floor. She is awake and alert in no acute distress. She states she is not quite back to her baseline. She is still somewhat bronchospastic and wheezy today. She has a loose nonproductive cough. Sputum cultures pending. She is maintaining good O2 saturations in the 90s on room air. She's been afebrile. Hemodynamically stable. White count 12.9. Objective - Vital Signs Vital signs: Vital Signs Temp 96.6 F L 08/12/17 05:55 Pulse 84 08/12/17 07:22 Resp 20 08/12/17 05:55 BP 107/59 08/12/17 05:55 Pulse Ox 96 08/12/17 05:55 Intake & Output 08/11/17 08/12/17 08/12/17 18:59 06:59 18:59 Intake Total 500 Balance 500 Intake: Oral 500 Other: Voiding Method Toilet # Voids 3 1 - Exam Physical Exam: Revealed a 37-year-old female in no distress. Head: Atraumatic, normocephalic. HEENT:[Neck is supple.] [No neck masses.] [No thyromegaly.] [No JVD.] PERRLA, EOMI, no icterus. Moist mucous membranes. Chest: [Diminished breath sounds at the bases, rhonchi and wheezes noted bilaterally more so on forced expiratory maneuver..] Cardiac Exam: [Normal S1 and S2, no S3 gallop, no murmur.] Abdomen: [Soft, nontender, no megaly, no rebound, no guarding, normal bowel sounds.] Extremities: [No clubbing, no edema, no cyanosis.] Neurological Exam: [No focal neurologic deficit. Lymphatics: No lymphadenopathy. Psychiatric: Normal mood affect and mental status examination.] - Labs CBC & Chem 7: 08/12/17 08:07 08/12/17 08:07 Labs: Abnormal Lab Results - Last 24 Hours (Table) 08/11/17 08/11/17 08/11/17 Range/Units 12:45 16:55 21:56 WBC (3.8-10.6) k/uL MCV (80.0-100.0) fL MCH (25.0-35.0) pg Neutrophils # (1.3-7.7) k/uL Glucose (74-99) mg/dL POC Glucose (mg/dL) 156 H 223 H 150 H (75-99) mg/dL Total Protein (6.3-8.2) g/dL 08/12/17 08/12/17 08/12/17 Range/Units 07:10 08:07 08:07 WBC 12.9 H (3.8-10.6) k/uL MCV 78.9 L (80.0-100.0) fL MCH 24.8 L (25.0-35.0) pg Neutrophils # 11.5 H (1.3-7.7) k/uL Glucose 125 H (74-99) mg/dL POC Glucose (mg/dL) 141 H (75-99) mg/dL Total Protein 6.1 L (6.3-8.2) g/dL Microbiology - Last 24 Hours (Table) 08/11/17 08:00 Gram Stain - Preliminary Sputum 08/09/17 19:44 Blood Culture - Preliminary Blood No Growth after 48 hours Assessment and Plan Assessment: Assessment: 1 acute exacerbation of bronchial asthma 2 acute tracheobronchitis, strongly doubt pneumonia. 3 history of multiple comorbidities including possible lupus, previous history of pulmonary embolism, history of chronic anemia, history of methamphetamine abuse, history of bipolar disorder. Recommendation: The patient was seen and evaluated by Dr. Willis. The patient has been slow to progress. Still somewhat bronchospastic and wheezy. Continue with her current medications. Increase her activity as tolerated. We'll continue to follow. I, the cosigning physician, performed a history & physical examination of the patient. Lungs sounds with bilateral wheezing, few scattered rhonchi. Maintaining good O2 saturations in the 90s on room air. I discussed the assessment and plan of care with my nurse practitioner, Estrellita Calixto. I attest to the above note as dictated by her.
[2017-08-12 12:03] LABS: Glucose,Whole Blood 134 mg/dL (75-99)
[2017-08-12] MEDS: ACETAMINOPHEN TAB 325 MG TAB PO PRN ×2 (14:14→21:57)
--- NOTE | 2017-08-12 15:54 | P.PN ---
Subjective Progress Note Date: 08/12/17 This is a 37-year-old female with a known past medical history of asthma, PE, lupus and bipolar. Patient has been staying at [facility] for rehabilitation due to amphetamine abuse. She has been drug-free for about a month. Patient was recently at [facility] for ALLERGIC reaction which is likely an ALLERGIC dermatitis. She presented we'll at that time with symptoms of shortness of breath and rash. She was given antihistamines and steroids. Patient presents to the ER yesterday due to having increasing shortness of breath with cough and wheezing over the last few days. She was admitted to the hospital and started treatment for possible pneumonia and asthma exacerbation. She is currently on Levaquin and Zosyn as well as IV Solu-Medrol and bronchodilators. Pulmonary service is consulted. Chest x-ray showed possible developing right lower lobe pneumonia. White count admission 14.6. Repeat chest x-ray shows correlate for reactive airway disease, bronchitis. Patient reports chest tightness with her shortness of breath. Denies any nausea or vomiting. Complaining of some constipation last bowel movement 2 days ago. Denies any urinary symptoms. 08/11/2017 patient still complaining of some shortness of breath with walking. Also still complaining of some wheezing and chest congestion. Mucinex will be added. Patient does not feel ready for discharge. She is concerned about going outside in the heat. She was able to have a bowel movement. 08/12/2017 patient was seen and examined. She is alert and oriented in no acute distress. She is still having significant shortness of breath and wheezing today. She has a loose nonproductive cough. Sputum cultures pending. She is maintaining good O2 saturations in the 90s on room air. She's been afebrile. Hemodynamically stable. White count 12.9. Objective - Vital Signs Vital signs: Vital Signs Temp 97.4 F L 08/12/17 14:55 Pulse 81 08/12/17 14:55 Resp 18 08/12/17 14:55 BP 124/50 08/12/17 14:55 Pulse Ox 95 08/12/17 14:55 Intake & Output 08/11/17 08/12/17 08/12/17 18:59 06:59 18:59 Intake Total 500 Balance 500 Intake: Oral 500 Other: Voiding Method Toilet # Voids 3 1 3 - Exam Head normocephalic and atraumatic Neck supple no JVD no goiter Lungs wheezing bilaterally with coarse breath sounds Heart regular rate and rhythm S1-S2, no rub or gallop Abdomen is soft nontender nondistended positive bowel sounds no hepatosplenomegaly Extremities no edema Neuro alert and orientated to 3 - Labs CBC & Chem 7: 08/12/17 08:07 08/12/17 08:07 Labs: Abnormal Lab Results - Last 24 Hours (Table) 08/11/17 08/11/17 08/12/17 Range/Units 16:55 21:56 07:10 WBC (3.8-10.6) k/uL MCV (80.0-100.0) fL MCH (25.0-35.0) pg Neutrophils # (1.3-7.7) k/uL Glucose (74-99) mg/dL POC Glucose (mg/dL) 223 H 150 H 141 H (75-99) mg/dL Total Protein (6.3-8.2) g/dL 08/12/17 08/12/17 08/12/17 Range/Units 08:07 08:07 11:52 WBC 12.9 H (3.8-10.6) k/uL MCV 78.9 L (80.0-100.0) fL MCH 24.8 L (25.0-35.0) pg Neutrophils # 11.5 H (1.3-7.7) k/uL Glucose 125 H (74-99) mg/dL POC Glucose (mg/dL) 134 H (75-99) mg/dL Total Protein 6.1 L (6.3-8.2) g/dL Microbiology - Last 24 Hours (Table) 08/11/17 08:00 Gram Stain - Preliminary Sputum 08/09/17 19:44 Blood Culture - Preliminary Blood No Growth after 48 hours Assessment and Plan Plan: 1. Acute asthma exacerbation: Patient is been placed on IV Solu-Medrol will change bronchodilators to 4 times a day and as needed. Pulmonary service following 2. Acute tracheobronchitis: Repeat chest x-ray states correlate for reactive airway disease and bronchitis. Patient currently on Levaquin and Zosyn. Followed by pulmonary service and they doubt patient has pneumonia. Mucinex added. Awaiting sputum culture 3. Recent hospitalization with ALLERGIC reaction resume patient's Pepcid and antihistamine. Patient also was on prednisone. This will be held while patient is on IV Solu-Medrol. No evidence of rash 4. History of methamphetamine abuse has been undergoing rehabilitation at [facility] 5. History of lupus 6. History of bipolar disorder 7. Prior history of smoking quit about a month ago 8. Constipation start Colace GI prophylaxis Pepcid and DVT prophylaxis Lovenox
[2017-08-12 17:07] LABS: Glucose,Whole Blood 158 mg/dL (75-99)
[2017-08-12 21:04] LABS: Glucose,Whole Blood 184 mg/dL (75-99)
[2017-08-12] MEDS: LEVOFLOXACIN 750 MG TAB PO SCH (21:55)
[2017-08-12] MEDS: DOXEPIN 25 MG CAP PO SCH (21:55)
[2017-08-12] MEDS: traZODone HCL 50 MG TAB PO SCH (21:56)
[2017-08-12] MEDS: MICONAZOLE 2% VAGINAL CREAM 45 GM TUBE/KIT VAGINAL SCH (21:56)
[2017-08-12] MEDS: MONTELUKAST 10 MG TAB PO SCH (21:56)
[2017-08-13] MEDS: IPRATROPIUM-ALBUTEROL 3 ML NEB INHALATION PRN ×5 (03:49→20:46)
[2017-08-13] MEDS: methylPREDNISolone SOD SUCCI 125 MG/2 ML VIAL IV SCH ×4 (06:16→23:08)
[2017-08-13 07:28] LABS: Glucose,Whole Blood 132 mg/dL (75-99)
[2017-08-13] MEDS: INSULIN ASPART 100 UNIT/ML 1 ML 10 ML VIAL SQ SCH ×4 (08:18→21:11)
[2017-08-13] MEDS: PIPERACILLIN-TAZOBACTAM 3.375 GM in DEXTROSE/WATER 1 50ML.BAG IVPB SCH ×3 (08:18→23:07)
[2017-08-13] MEDS: SYMBICORT 160-4.5 MCG INHALER INHALATION SCH ×2 (08:19→20:45)
[2017-08-13] MEDS: guaiFENesin 600 MG TABLET.ER PO SCH ×2 (08:19→21:09)
[2017-08-13] MEDS: ARIPiprazole 10 MG TAB PO SCH ×2 (08:19→21:09)
[2017-08-13] MEDS: LORATADINE 10 MG TAB PO SCH (08:19)
[2017-08-13] MEDS: ENOXAPARIN 40 MG/0.4 ML SYRINGE SQ SCH (08:19)
[2017-08-13] MEDS: DOCUSATE 100 MG CAP PO SCH ×2 (08:19→21:09)
[2017-08-13] MEDS: MULTIVITAMINS, THERA 1 EACH TAB PO SCH (08:20)
[2017-08-13] MEDS: ACETAMINOPHEN TAB 325 MG TAB PO PRN ×2 (08:23→21:10)
[2017-08-13 09:24] LABS: Basophils % (A) 0 %; Eosinophils % (A) 0 %; Hypochromasia Slight; Lymphocytes # (A) 0.8 k/uL (1.0-4.8); Lymphocytes % (A) 8 %; MCH 24.8 pg (25.0-35.0); MCHC 30.8 g/dL (31.0-37.0); MCV 80.4 fL (80.0-100.0); Monocytes # (A) 0.3 k/uL (0-1.0); Monocytes % (A) 2 %; Neutrophils # (A) 9.7 k/uL (1.3-7.7); Neutrophils % (A) 90 %; Platelet Count 398 k/uL (150-450); RBC 4.85 m/uL (3.80-5.40); RDW 15.3 % (11.5-15.5); WBC 10.9 k/uL (3.8-10.6)
[2017-08-13 09:38] LABS: ALT 48 U/L (9-52); AST 29 U/L (14-36); Albumin 3.2 g/dL (3.5-5.0); Alkaline Phosphatase 58 U/L (38-126); Anion Gap 14 mmol/L; Blood Urea Nitrogen 14 mg/dL (7-17); Carbon Dioxide 25 mmol/L (22-30); Chloride 97 mmol/L (98-107); Glucose 179 mg/dL (74-99); Potassium 4.1 mmol/L (3.5-5.1); Sodium 136 mmol/L (137-145); Total Bilirubin 0.3 mg/dL (0.2-1.3); Total Protein 5.7 g/dL (6.3-8.2)
[2017-08-13 12:27] LABS: Glucose,Whole Blood 158 mg/dL (75-99)
--- NOTE | 2017-08-13 15:08 | P.PN ---
Subjective Progress Note Date: 08/13/17 Principal diagnosis: Acute exacerbation of bronchial asthma and purulent tracheobronchitis This is a 37-year-old female with history of mild intermittent asthma, bipolar disorder, drug abuse including amphetamine, patient is mostly at [place] for treatment of amphetamine abuse. Has been basically drug free for almost a month. Patient has been a heavy smoker over the years, and she quit smoking about a month ago. She is also known to have history of pulmonary embolism, lupus, chronic generalized anxiety disorder and depression. Patient was recently admitted to [facility] for symptoms of ALLERGIC reaction of unknown nature, presented mostly with shortness of breath and diffuse rashes/ consistent with acute ALLERGIC dermatitis. Patient was treated with Ventolin, Zantac, Pepcid, and she was supposedly discharged on prednisone. Patient was evaluated today in the ER with a few days' history of increased shortness of breath cough and wheezing. [place] her asthma seems to be acting up on her. Did not improve with the use of albuterol. Hence she was seen in the ER. Chest x- ray was read by the radiologist as early right lower lobe pneumonia, however I reviewed the chest x-ray, and it seems to be relatively unremarkable. Clinically the patient had no fever, no chills, but she did have a bit of leukocytosis with WBC count of 14.6 on admission. Considering the patient was recently in the hospital, and considering the reading by the radiologist, it was felt that the patient may have hospital-acquired pneumonia, admitted, and this consult was initiated. Presently the patient denies any headache, no blurred vision no dizziness, no nausea no vomiting, she does have dry hacking cough, no fever no chills, she does have wheezing and shortness of breath, and feels like a band across her chest. No GI symptoms, denies any symptoms of GERD , no dysuria frequency or urgency. On 08/10/2017 patient seen again in follow-up on medical surgical floor. Denies worsening dyspnea, lung sounds are still positive for some residual scattered wheezes, and some scattered rhonchi, overall patient remains stable, room air pulse ox is 96%, vital signs are stable, she is afebrile, no chest x-ray has been reviewed and showed bronchial wall thickening, reactive airways disease, bronchitis. No pneumonia. She remains on Zosyn and Levaquin, high-dose steroids, nebulized bronchodilators, and she is improving. On 08/11/2017 patient seen in follow-up on medical surgical floor. States she is more raspy and congested today, lung sounds are positive for diffuse wheezes , and scattered rhonchi, and has a congested cough. Room air pulse ox is 96% , vital signs are stable, she is afebrile. Today's labs have been reviewed, white count is trending down, and is down to 12.9, hemoglobin is 7.9, electrolytes and renal profile are all within normal limits. Patient remains on Zosyn and Levaquin, high-dose steroids, nebulized bronchodilators. The patient is seen again today 08/12/2017 in follow-up on the regular medical floor. She is awake and alert in no acute distress. She states she is not quite back to her baseline. She is still somewhat bronchospastic and wheezy today. She has a loose nonproductive cough. Sputum cultures pending. She is maintaining good O2 saturations in the 90s on room air. She's been afebrile. Hemodynamically stable. White count 12.9. Reevaluated today on 08/13/2017, moderate pulmonary improvement noted in the last 24 hours, less cough and less wheezing less shortness of breath, patient is noted a significant improvement according to her. On physical examination she continues to have wheezing especially on forced expiratory maneuver. Objective - Vital Signs Vital signs: Vital Signs Temp 97.8 F 08/13/17 06:00 Pulse 80 08/13/17 12:19 Resp 20 08/13/17 08:00 BP 135/79 08/13/17 06:00 Pulse Ox 95 08/13/17 06:00 Intake & Output 08/12/17 08/13/17 08/13/17 18:59 06:59 18:59 Intake Total 600 Balance 600 Intake: Intake, IV Titration 100 Amount Piperacillin-Tazobactam 3 100 .375 gm In Dextrose/Water 1 50ml.bag @ 12.5 mls/hr IVPB Q8HR [facility] Rx#: [id number] Oral 500 Other: Voiding Method Toilet Toilet # Voids 3 1 - Exam Physical Exam: Revealed a 37-year-old female in no distress. Head: Atraumatic, normocephalic. HEENT:[Neck is supple.] [No neck masses.] [No thyromegaly.] [No JVD.] PERRLA, EOMI, no icterus. Moist mucous membranes. Chest: [Diminished breath sounds at the bases, rhonchi and wheezes noted bilaterally more so on forced expiratory maneuver..] Cardiac Exam: [Normal S1 and S2, no S3 gallop, no murmur.] Abdomen: [Soft, nontender, no megaly, no rebound, no guarding, normal bowel sounds.] Extremities: [No clubbing, no edema, no cyanosis.] Neurological Exam: [No focal neurologic deficit. Lymphatics: No lymphadenopathy. Psychiatric: Normal mood affect and mental status examination.] - Labs CBC & Chem 7: 08/13/17 08:54 08/13/17 08:54 Labs: Abnormal Lab Results - Last 24 Hours (Table) 08/12/17 08/12/17 08/13/17 Range/Units 16:56 20:58 07:26 WBC (3.8-10.6) k/uL MCH (25.0-35.0) pg MCHC (31.0-37.0) g/dL Neutrophils # (1.3-7.7) k/uL Lymphocytes # (1.0-4.8) k/uL Sodium (137-145) mmol/L Chloride (98-107) mmol/L Glucose (74-99) mg/dL POC Glucose (mg/dL) 158 H 184 H 132 H (75-99) mg/dL Total Protein (6.3-8.2) g/dL Albumin (3.5-5.0) g/dL 08/13/17 08/13/17 08/13/17 Range/Units 08:54 08:54 12:08 WBC 10.9 H (3.8-10.6) k/uL MCH 24.8 L (25.0-35.0) pg MCHC 30.8 L (31.0-37.0) g/dL Neutrophils # 9.7 H (1.3-7.7) k/uL Lymphocytes # 0.8 L (1.0-4.8) k/uL Sodium 136 L (137-145) mmol/L Chloride 97 L (98-107) mmol/L Glucose 179 H (74-99) mg/dL POC Glucose (mg/dL) 158 H (75-99) mg/dL Total Protein 5.7 L (6.3-8.2) g/dL Albumin 3.2 L (3.5-5.0) g/dL Microbiology - Last 24 Hours (Table) 08/11/17 08:00 Gram Stain - Final Sputum Sputum Culture - Final 08/09/17 19:44 Blood Culture - Preliminary Blood No Growth after 72 hours Assessment and Plan Assessment: Impression: 1 acute exacerbation of bronchial asthma 2 acute tracheobronchitis, strongly doubt pneumonia. 3 history of multiple comorbidities including possible lupus, previous history of pulmonary embolism, history of chronic anemia, history of methamphetamine abuse, history of bipolar disorder. Recommendation: Continue present treatment plan, consider discharge planning in the next 24 hours Time with Patient: Less than 30
--- NOTE | 2017-08-13 15:22 | P.PN ---
Subjective Progress Note Date: 08/13/17 This is a 37-year-old female with a known past medical history of asthma, PE, lupus and bipolar. Patient has been staying at [place] for rehabilitation due to amphetamine abuse. She has been drug-free for about a month. Patient was recently at [facility] for ALLERGIC reaction which is likely an ALLERGIC dermatitis. She presented we'll at that time with symptoms of shortness of breath and rash. She was given antihistamines and steroids. Patient presents to the ER yesterday due to having increasing shortness of breath with cough and wheezing over the last few days. She was admitted to the hospital and started treatment for possible pneumonia and asthma exacerbation. She is currently on Levaquin and Zosyn as well as IV Solu-Medrol and bronchodilators. Pulmonary service is consulted. Chest x-ray showed possible developing right lower lobe pneumonia. White count admission 14.6. Repeat chest x-ray shows correlate for reactive airway disease, bronchitis. Patient reports chest tightness with her shortness of breath. Denies any nausea or vomiting. Complaining of some constipation last bowel movement 2 days ago. Denies any urinary symptoms. 08/11/2017 patient still complaining of some shortness of breath with walking. Also still complaining of some wheezing and chest congestion. Mucinex will be added. Patient does not feel ready for discharge. She is concerned about going outside in the heat. She was able to have a bowel movement. 08/12/2017 patient was seen and examined. She is alert and oriented in no acute distress. She is still having significant shortness of breath and wheezing today. She has a loose nonproductive cough. Sputum cultures pending. She is maintaining good O2 saturations in the 90s on room air. She's been afebrile. Hemodynamically stable. White count 12.9. On 08/13/2017 patient is alert and oriented 3 she is still having wheezing and has shortness of breath with any activity, she also has cough without any sputum production, otherwise she denies any symptoms that is no fever or chills no headache or dizziness no chest pain no nausea or vomiting no abdominal pain and no urinary symptoms Objective - Vital Signs Vital signs: Vital Signs Temp 97.8 F 08/13/17 06:00 Pulse 80 08/13/17 12:19 Resp 20 07/01/18 08:00 BP 135/79 08/13/17 06:00 Pulse Ox 95 08/13/17 06:00 Intake & Output 08/12/17 08/13/17 08/13/17 18:59 06:59 18:59 Intake Total 600 Balance 600 Intake: Intake, IV Titration 100 Amount Piperacillin-Tazobactam 3 100 .375 gm In Dextrose/Water 1 50ml.bag @ 12.5 mls/hr IVPB Q8HR [facility] Rx#: [id number] Oral 500 Other: Voiding Method Toilet Toilet # Voids 3 1 - Exam Head normocephalic and atraumatic Neck supple no JVD no goiter Lungs wheezing bilaterally with coarse breath sounds Heart regular rate and rhythm S1-S2, no rub or gallop Abdomen is soft nontender nondistended positive bowel sounds no hepatosplenomegaly Extremities no edema Neuro alert and orientated to 3 - Labs CBC & Chem 7: 08/13/17 08:54 08/13/17 08:54 Labs: Abnormal Lab Results - Last 24 Hours (Table) 08/12/17 08/12/17 08/13/17 Range/Units 16:56 20:58 07:26 WBC (3.8-10.6) k/uL MCH (25.0-35.0) pg MCHC (31.0-37.0) g/dL Neutrophils # (1.3-7.7) k/uL Lymphocytes # (1.0-4.8) k/uL Sodium (137-145) mmol/L Chloride (98-107) mmol/L Glucose (74-99) mg/dL POC Glucose (mg/dL) 158 H 184 H 132 H (75-99) mg/dL Total Protein (6.3-8.2) g/dL Albumin (3.5-5.0) g/dL 08/13/17 08/13/17 08/13/17 Range/Units 08:54 08:54 12:08 WBC 10.9 H (3.8-10.6) k/uL MCH 24.8 L (25.0-35.0) pg MCHC 30.8 L (31.0-37.0) g/dL Neutrophils # 9.7 H (1.3-7.7) k/uL Lymphocytes # 0.8 L (1.0-4.8) k/uL Sodium 136 L (137-145) mmol/L Chloride 97 L (98-107) mmol/L Glucose 179 H (74-99) mg/dL POC Glucose (mg/dL) 158 H (75-99) mg/dL Total Protein 5.7 L (6.3-8.2) g/dL Albumin 3.2 L (3.5-5.0) g/dL Microbiology - Last 24 Hours (Table) 08/11/17 08:00 Gram Stain - Final Sputum Sputum Culture - Final 08/09/17 19:44 Blood Culture - Preliminary Blood No Growth after 72 hours Assessment and Plan Plan: 1. Acute asthma exacerbation: Patient is been placed on IV Solu-Medrol will change bronchodilators to 4 times a day and as needed. Pulmonary service following 2. Acute tracheobronchitis: Repeat chest x-ray states correlate for reactive airway disease and bronchitis. Patient currently on Levaquin and Zosyn. Followed by pulmonary service and they doubt patient has pneumonia. Mucinex added. Awaiting sputum culture 3. Recent hospitalization with ALLERGIC reaction resume patient's Pepcid and antihistamine. Patient also was on prednisone. This will be held while patient is on IV Solu-Medrol. No evidence of rash 4. History of methamphetamine abuse has been undergoing rehabilitation at [place] 5. History of lupus 6. History of bipolar disorder 7. Prior history of smoking quit about a month ago 8. Constipation start Colace GI prophylaxis Pepcid and DVT prophylaxis Lovenox Patient improving gradually possible discharge to home tomorrow
[2017-08-13 17:15] LABS: Glucose,Whole Blood 193 mg/dL (75-99)
[2017-08-13] MEDS ORDERED: diphenhydrAMINE 25 MG CAP PO PRN (17:47)
[2017-08-13 20:42] LABS: Glucose,Whole Blood 169 mg/dL (75-99)
[2017-08-13] MEDS: LEVOFLOXACIN 750 MG TAB PO SCH (21:09)
[2017-08-13] MEDS: MONTELUKAST 10 MG TAB PO SCH (21:09)
[2017-08-13] MEDS: traZODone HCL 50 MG TAB PO SCH (21:09)
[2017-08-13] MEDS: DOXEPIN 25 MG CAP PO SCH (21:09)
[2017-08-13] MEDS: MICONAZOLE 2% VAGINAL CREAM 45 GM TUBE/KIT VAGINAL SCH (21:16)
[2017-08-13 22:57] VITALS: RESP 18
[2017-08-14 06:18] VITALS: BP 130/72; TEMP 96.6
[2017-08-14] MEDS: methylPREDNISolone SOD SUCCI 125 MG/2 ML VIAL IV SCH (06:22)
[2017-08-14 07:58] LABS: ALT 89 U/L (9-52); AST 54 U/L (14-36); Alkaline Phosphatase 50 U/L (38-126); Anion Gap 10 mmol/L; Blood Urea Nitrogen 16 mg/dL (7-17); Calcium 8.7 mg/dL (8.4-10.2); Carbon Dioxide 29 mmol/L (22-30); Chloride 98 mmol/L (98-107); Glucose 124 mg/dL (74-99); Potassium 4.4 mmol/L (3.5-5.1); Sodium 137 mmol/L (137-145); Total Bilirubin 0.3 mg/dL (0.2-1.3); Total Protein 5.4 g/dL (6.3-8.2)
[2017-08-14] MEDS: LORATADINE 10 MG TAB PO SCH (08:09)
[2017-08-14] MEDS: ENOXAPARIN 40 MG/0.4 ML SYRINGE SQ SCH (08:09)
[2017-08-14] MEDS: DOCUSATE 100 MG CAP PO SCH (08:09)
[2017-08-14] MEDS: ARIPiprazole 10 MG TAB PO SCH (08:09)
[2017-08-14] MEDS: guaiFENesin 600 MG TABLET.ER PO SCH (08:09)
[2017-08-14] MEDS: MULTIVITAMINS, THERA 1 EACH TAB PO SCH (08:10)
[2017-08-14] MEDS: PIPERACILLIN-TAZOBACTAM 3.375 GM in DEXTROSE/WATER 1 50ML.BAG IVPB SCH (08:12)
[2017-08-14] MEDS: INSULIN ASPART 100 UNIT/ML 1 ML 10 ML VIAL SQ SCH (08:13)
[2017-08-14 08:14] LABS: Basophils % (A) 0 %; Eosinophils % (A) 0 %; HCT 37.8 % (34.0-46.0); HGB 11.8 gm/dL (11.4-16.0); Hypochromasia Slight; Lymphocytes # (A) 0.8 k/uL (1.0-4.8); Lymphocytes % (A) 8 %; MCHC 31.3 g/dL (31.0-37.0); MCV 79.9 fL (80.0-100.0); Monocytes # (A) 0.4 k/uL (0-1.0); Monocytes % (A) 4 %; Neutrophils # (A) 9.6 k/uL (1.3-7.7); Neutrophils % (A) 88 %; Platelet Count 385 k/uL (150-450); RBC 4.74 m/uL (3.80-5.40); RDW 15.3 % (11.5-15.5)
[2017-08-14 08:23] LABS: Glucose,Whole Blood 137 mg/dL (75-99)
[2017-08-14] MEDS: SYMBICORT 160-4.5 MCG INHALER INHALATION SCH (08:36)
[2017-08-14] MEDS: IPRATROPIUM-ALBUTEROL 3 ML NEB INHALATION PRN ×2 (08:36→11:44)
[2017-08-14 08:52] VITALS: PULSE 84
--- NOTE | 2017-08-14 12:41 | P.DS ---
Providers Date of admission: 08/09/17 20:21 Expected date of discharge: 08/14/17 Attending physician: Litzy Stewart Consults: 08/09/17 20:22 Consult Physician Routine Consulting Provider: Iona Willis Consult Reason/Comments: Pneumonia and asthma Do you want consulting provider notified?: Yes Primary care physician: Litzy Stewart [facility] Course: Discharge diagnosis 1. Acute asthma exacerbation: Continue prednisone taper and nebulizer treatment. Symbicort and Singulair added during this admission 2. Acute tracheobronchitis: Repeat chest x-ray states correlate for reactive airway disease and bronchitis. Patient currently on Levaquin and Zosyn. Followed by pulmonary service and they doubt patient has pneumonia. Patient was unable to produce a sputum specimen. Showing improvement. Patient completed antibiotic treatment during hospitalization 3. Recent hospitalization with ALLERGIC reaction resume patient's Pepcid and antihistamine. Patient also was on prednisone. This will be held while patient is on IV Solu-Medrol. No evidence of rash 4. History of methamphetamine abuse has been undergoing rehabilitation at [place] 5. History of lupus 6. History of bipolar disorder 7. Prior history of smoking quit about a month ago 8. Constipation start Colace 9. Vaginal yeast infection 10. Mildly elevated LFTs at time of discharge possibly medication related. She had been on Levaquin which is now been discontinued. Also on psychiatric meds the trazodone and doxepin can cause hepatitis. Recommend repeating LFTs in 1 week. LFTs at discharge AST 54 and ALT 89 Hospital course This is a 37-year-old female with a known past medical history of asthma, PE, lupus and bipolar. Patient has been staying at [place] for rehabilitation due to amphetamine abuse. She has been drug-free for about a month. Patient was recently at [facility] for ALLERGIC reaction which is likely an ALLERGIC dermatitis. She presented we'll at that time with symptoms of shortness of breath and rash. She was given antihistamines and steroids. Patient presents to the ER yesterday due to having increasing shortness of breath with cough and wheezing over the last few days. She was admitted to the hospital and started treatment for possible pneumonia and asthma exacerbation. She is currently on Levaquin and Zosyn as well as IV Solu-Medrol and bronchodilators. Pulmonary service is consulted. Chest x-ray showed possible developing right lower lobe pneumonia. White count admission 14.6. Repeat chest x-ray shows correlate for reactive airway disease, bronchitis. Patient reports chest tightness with her shortness of breath. Denies any nausea or vomiting. Complaining of some constipation last bowel movement 2 days ago. Denies any urinary symptoms. 08/11/2017 patient still complaining of some shortness of breath with walking. Also still complaining of some wheezing and chest congestion. Mucinex will be added. Patient does not feel ready for discharge. She is concerned about going outside in the heat. She was able to have a bowel movement. 08/12/2017 patient was seen and examined. She is alert and oriented in no acute distress. She is still having significant shortness of breath and wheezing today. She has a loose nonproductive cough. Sputum cultures pending. She is maintaining good O2 saturations in the 90s on room air. She's been afebrile. Hemodynamically stable. White count 12.9. On 08/13/2017 patient is alert and oriented 3 she is still having wheezing and has shortness of breath with any activity, she also has cough without any sputum production, otherwise she denies any symptoms that is no fever or chills no headache or dizziness no chest pain no nausea or vomiting no abdominal pain and no urinary symptoms Patient's shortness of breath cough and wheezing are showing improvement. She was cleared by pulmonary service for discharge. She'll continue with prednisone taper. As stated above the Singulair and Symbicort added during this admission. She'll follow-up with pulmonary service in the outpatient setting. Patient had no evidence of pneumonia she was treated for bronchitis and completed antibiotic course during her hospitalization. Patient had mildly elevated LFTs likely medication induced. As stated above the Levaquin discontinued completed antibiotic course during hospital station. Also could be related to her psychiatric meds. At this time we'll have her follow-up with [facility] for further psychiatric workup. Recommend checking LFTs in 1 week. Patient is medically stable for discharge. Patient only had 1 day left at [place] [facility]. She was scheduled be discharged to 8:00 tomorrow morning. At this time she will be given a note that she is medically stable for discharge home and does not need to return to [place] [facility]. I performed an examination of the patient and discussed their management with the physician Electrotype Molder. I have reviewed the Physician Electrotype Molder's notes and agree with the documented findings and plan of care Patient Condition at Discharge: Stable Plan - Discharge Summary Discharge Rx Participant: Yes New Discharge Prescriptions: New Budesonide-Formot 160-4.5 Mcg [Symbicort 160-4.5 Mcg Inhaler] 2 puff INHALATION RT-BID #1 puff Miconazole 2% Vaginal Cream [Monistat 7] 1 applic VAGINAL HS #5 applic Montelukast [Singulair] 10 mg PO HS #30 tab predniSONE 10 mg PO DIRECTED #30 tab Continue traZODone HCL 50 mg PO HS ARIPiprazole [Abilify] 10 mg PO BID #30 tab Multivitamins, Thera [Multivitamin (formulary)] 1 tab PO DAILY Cetirizine HCl [Zyrtec] 10 mg PO DAILY Famotidine [Pepcid] 20 mg PO BID Doxepin HCl [SINEquan] 50 mg PO HS Albuterol Nebulized (Conc) [Ventolin Nebulized (Conc)] 2.5 mg INHALATION RT- Q6H PRN PRN Reason: Shortness Of Breath Discontinued predniSONE 20 mg PO DAILY Discharge Medication List traZODone HCL 50 mg PO HS 07/14/17 [History] ARIPiprazole [Abilify] 10 mg PO BID #30 tab 07/20/17 [Rx] Albuterol Nebulized (Conc) [Ventolin Nebulized (Conc)] 2.5 mg INHALATION RT-Q6H PRN 08/09/17 [History] Cetirizine HCl [Zyrtec] 10 mg PO DAILY 08/09/17 [History] Doxepin HCl [SINEquan] 50 mg PO HS 08/09/17 [History] Famotidine [Pepcid] 20 mg PO BID 08/09/17 [History] Multivitamins, Thera [Multivitamin (formulary)] 1 tab PO DAILY 08/09/17 [History ] Budesonide-Formot 160-4.5 Mcg [Symbicort 160-4.5 Mcg Inhaler] 2 puff INHALATION RT-BID #1 puff 08/14/17 [Rx] Miconazole 2% Vaginal Cream [Monistat 7] 1 applic VAGINAL HS #5 applic 08/14/17 [Rx] Montelukast [Singulair] 10 mg PO HS #30 tab 08/14/17 [Rx] predniSONE 10 mg PO DIRECTED #30 tab 08/14/17 [Rx] Follow up Appointment(s)/Referral(s): Iona Willis MD [STAFF PHYSICIAN] - 08/22/17 2:15 pm Litzy Stewart MD [Primary Care Provider] - 08/23/17 3:30 pm Ambulatory/Diagnostic Orders: Comprehensive Metabolic Panel [LAB.AMB] Time Frame: 1 Week, Location: None Selected Patient Instructions/Handouts: Pneumonitis (DC) Activity/Diet/Wound Care/Special Instructions: Diet: regular Activity: as tolerated Follow up with [facility] in 1 week Ok to discharge home instead of [facility] Discharge Disposition: HOME SELF-CARE
[2017-08-14 12:59] LABS: Glucose,Whole Blood 154 mg/dL (75-99)
--- NOTE | 2017-08-14 13:40 | P.PN ---
Subjective Progress Note Date: 08/14/17 Principal diagnosis: Pneumonia Progress note dated 08/14/2017 37-year-old female who was admitted a few days back with an asthma exacerbation , treated by purulent tracheobronchitis. She also has a history of possible lupus previous history of pulmonary embolism history of chronic anemia history of methamphetamine abuse and history of bipolar disorder. She was actually at [facility] going through the detox program when she was admitted to the hospital for the asthma flareup. She's actually doing relatively well and could be discharged home today. Her shortness of breath chest tightness wheezing cough are all much improved. She denies any chest pain or chest discomfort. No fever or chills. No nausea vomiting or diarrhea. Objective - Vital Signs Vital signs: Vital Signs Temp 96.6 F L 08/14/17 06:17 Pulse 84 08/14/17 08:46 Resp 18 08/14/17 06:17 BP 130/72 08/14/17 06:17 Pulse Ox 97 08/14/17 06:17 Intake & Output 08/13/17 08/14/17 08/14/17 18:59 06:59 18:59 Intake Total 310 Balance 310 Intake: IV 200 0.9 NS At 20 ml 200 Intake, IV Titration 50 Amount Piperacillin-Tazobactam 3 50 .375 gm In Dextrose/Water 1 50ml.bag @ 12.5 mls/hr IVPB Q8HR [facility] Rx#: [id number] Oral 60 Other: Voiding Method Toilet Toilet # Voids 4 2 - Exam No acute distress, oriented 3. HEENT examination is grossly unremarkable. Mucous membranes are moist. No oral lesions. Neck supple. Full range of motion. No adenopathy thyromegaly or neck vein distention. Cardiovascular examination reveals regular rhythm rate. S1-S2 normal. No S3 or S4. No discernible murmur noted. Lungs reveal mostly clear breath sounds. Her sounds are equal bilaterally. Other than a few scattered minimal rhonchi, lung sounds are very good. No wheezes or crackles. Abdomen soft bowel sounds are heard. No masses or tenderness. Extremities are intact. No cyanosis clubbing or edema. Skin is without rash or lesion. Neurologic examination is brief but nonfocal. - Labs CBC & Chem 7: 08/14/17 07:21 08/14/17 07:21 Labs: Abnormal Lab Results - Last 24 Hours (Table) 08/13/17 08/13/17 08/14/17 Range/Units 17:11 20:40 07:21 WBC 11.0 H (3.8-10.6) k/uL MCV 79.9 L (80.0-100.0) fL Neutrophils # 9.6 H (1.3-7.7) k/uL Lymphocytes # 0.8 L (1.0-4.8) k/uL Glucose (74-99) mg/dL POC Glucose (mg/dL) 193 H 169 H (75-99) mg/dL AST (14-36) U/L ALT (9-52) U/L Total Protein (6.3-8.2) g/dL Albumin (3.5-5.0) g/dL 08/14/17 08/14/17 08/14/17 Range/Units 07:21 07:48 12:37 WBC (3.8-10.6) k/uL MCV (80.0-100.0) fL Neutrophils # (1.3-7.7) k/uL Lymphocytes # (1.0-4.8) k/uL Glucose 124 H (74-99) mg/dL POC Glucose (mg/dL) 137 H 154 H (75-99) mg/dL AST 54 H (14-36) U/L ALT 89 H (9-52) U/L Total Protein 5.4 L (6.3-8.2) g/dL Albumin 3.0 L (3.5-5.0) g/dL Microbiology - Last 24 Hours (Table) 08/09/17 19:44 Blood Culture - Preliminary Blood No Growth after 96 hours 08/11/17 08:00 Gram Stain - Final Sputum Sputum Culture - Final Assessment and Plan Assessment: Assessment Acute exacerbation of chronic bronchial asthma Acute purulent tracheobronchitis, down bronchopneumonia History of possible lupus History of pulmonary embolism History of chronic anemia History of methamphetamine abuse History of bipolar disorder Plan: Plan dated 08/14/2017 The patient's doing well. She may be discharged home. We'll ask her to follow with my partner, Dr. Willis. Medications are reviewed. ALLERGIES are reviewed. She seems to be doing relatively well. She has been whether or not she should go back to the 1 lasting over at [facility] whether or not she should just be going home. I think probably she should go home. I don't think is watt to go back to [facility] this point since tonight really as a last day of [facility]. No additional recommendations are made. Time with Patient: Less than 30
== END 2017-08-14 13:55 | disposition home or self-care (01) | DRG 203 ==
LOC: EC 16:49 → 4MS4W 20:21
PROVIDERS: ADMIT Internal Medicine; ATTEND Internal Medicine
DX: J45.21 Mild intermittent asthma with (acute) exacerbation (principal); J20.9 Acute bronchitis, unspecified; B37.3 Candidiasis of vulva and vagina; F41.1 Generalized anxiety disorder; F31.9 Bipolar disorder, unspecified; F15.10 Other stimulant abuse, uncomplicated; K59.00 Constipation, unspecified; R79.89 Other specified abnormal findings of blood chemistry; Z79.899 Other long term (current) drug therapy; Z87.891 Personal history of nicotine dependence; Z86.711 Personal history of pulmonary embolism; Z86.19 Personal history of other infectious and parasitic diseases; Z86.2 Personal history of diseases of the blood and blood-forming organs and certain disorders involving the immune mechanism; Z87.39 Personal history of other diseases of the musculoskeletal system and connective tissue; Z98.51 Tubal ligation status; Z83.3 Family history of diabetes mellitus; Z83.49 Family history of other endocrine, nutritional and metabolic diseases; Z81.8 Family history of other mental and behavioral disorders; Z81.3 Family history of other psychoactive substance abuse and dependence; Z82.49 Family history of ischemic heart disease and other diseases of the circulatory system
CPT/HCPCS: 36415; 71046; 80053; 83605; 83735; 85025; 85379; 85610; 85730; 87040; 87070; 87205; 94640; 94760; 96361; 96374; 99285

== ENCOUNTER → 2017-12-08 | Outpatient (CLI) | payer SELFPAY ==
[2017-12-08 15:35] LABS: Prothrombin Time 9.6 sec (9.0-12.0)
[2017-12-08 20:50] LABS: HIV 1 AB Non-Reactive (Non-Reactive); HIV AB P24 Non-Reactive (Non-Reactive); HIV P24 AG Non-Reactive (Non-Reactive)
[2017-12-08 21:30] LABS: Albumin 3.9 g/dL (3.80-4.90); Albumin/Globulin Ratio 1.95 (1.20-2.10); Anion Gap 7.8 mmol/L (4.00-12.00); Calcium 8.6 mg/dL (8.7-10.3); Carbon Dioxide 26.2 mmol/L (21.6-31.8); Potassium 4.2 mmol/L (3.5-5.5); Total Bilirubin 0.3 mg/dL (0.3-1.2); Total Protein 5.9 g/dL (6.2-8.2)
== END | disposition home or self-care (01) ==
LOC: LABWHC1 14:36
PROVIDERS: ATTEND Internal Medicine Infectious Disease
DX: B18.2 Chronic viral hepatitis C (principal)
CPT/HCPCS: 36415; 80053; 85610; 85730; 87390

== ENCOUNTER 2018-07-15 14:42 | Emergency (ER) | payer OTHER ==
[2018-07-15 14:50] VITALS: RESP 18
[2018-07-15] MEDS ORDERED: FAMOTIDINE 20 MG/2 ML VIAL IV STA (14:55)
[2018-07-15] MEDS ORDERED: diphenhydrAMINE 50 MG/ML 1 ML VIAL IVP STA (14:55)
[2018-07-15] MEDS ORDERED: SODIUM CHLORIDE 0.9% 500 ML 500 ML IV ONE (14:56)
--- NOTE | 2018-07-15 15:00 | ED ---
Skin/Abscess/FB HPI - General Chief complaint: Skin/Abscess/Foreign Body Stated complaint: Skin Infection Time Seen by Provider: 07/15/18 14:52 Source: patient, RN notes reviewed Mode of arrival: ambulatory Limitations: no limitations - History of Present Illness Initial comments: 38-year-old female presents emergency Department chief complaint of rash over her back started yesterday. Patient states that she asked her friend to scratch her back and which they noticed it was very red in nature. Patient states that she had cellulitis of her neck and back region last year. Patient's concerned that this is a recurrent episode. Patient does not that she does have some hives and is very itchy at this time denies any difficulty breathing no difficu lt swallowing. Patient did not take anything for the symptoms at this time she reports no fevers chills though she has a temperature 99.8 in emergency department. Patient offers no complaints of URI symptoms no urinary symptoms - Related Data Home Medications Medication Instructions Recorded Confirmed traZODone HCL 50 mg PO HS 07/14/17 08/09/17 Albuterol Nebulized (Conc) 2.5 mg INHALATION RT-Q6H PRN 08/09/17 08/09/17 [Ventolin Nebulized (Conc)] Cetirizine HCl [Zyrtec] 10 mg PO DAILY 08/09/17 08/09/17 Doxepin HCl [SINEquan] 50 mg PO HS 08/09/17 08/09/17 Famotidine [Pepcid] 20 mg PO BID 08/09/17 08/09/17 Multivitamins, Thera [Multivitamin 1 tab PO DAILY 08/09/17 08/09/17 (formulary)] Previous Rx's Medication Instructions Recorded ARIPiprazole [Abilify] 10 mg PO BID #30 tab 07/20/17 Budesonide-Formot 160-4.5 Mcg 2 puff INHALATION RT-BID #1 puff 08/14/17 [Symbicort 160-4.5 Mcg Inhaler] Miconazole 2% Vaginal Cream 1 applic VAGINAL HS #5 applic 08/14/17 [Monistat 7] Montelukast [Singulair] 10 mg PO HS #30 tab 08/14/17 predniSONE 10 mg PO DIRECTED #30 tab 08/14/17 Cephalexin [Keflex] 500 mg PO Q6HR #40 cap 07/15/18 Allergies Allergy/AdvReac Type Severity Reaction Status Date / Time No Known Allergies Allergy Verified 07/15/18 14:49 Review of Systems ROS Statement: Those systems with pertinent positive or pertinent negative responses have been documented in the HPI. ROS Other: All systems not noted in ROS Statement are negative. Past Medical History Past Medical History: Asthma, Pulmonary Embolus (PE), Skin Disorder Additional Past Medical History / Comment(s): brochitis Lupus anemia, chronic cellulitis-neck/back, HPV, bipolar disorder, hep C History of Any Multi-Drug Resistant Organisms: None Reported Past Surgical History: Section, Tubal Ligation Additional Past Surgical History / Comment(s): lupus, x3 c-sections Additional Past Anesthesia/Blood Transfusion Reaction / Comment(s): pt has not had transfusion. Past Psychological History: Anxiety, Bipolar, Depression Smoking Status: Former smoker Past Alcohol Use History: None Reported Past Drug Use History: None Reported - Past Family History Mother Family Medical History: Diabetes Mellitus Additional Family Medical History / Comment(s): lupus, bipolar, drug dependency. Father Additional Family Medical History / Comment(s): "heart problems" General Exam Limitations: no limitations General appearance: alert, in no apparent distress Head exam: Present: atraumatic, normocephalic, normal inspection Neck exam: Present: normal inspection. Absent: tenderness, meningismus, lymphadenopathy Respiratory exam: Present: normal lung sounds bilaterally. Absent: respiratory distress, wheezes, rales, rhonchi, stridor Cardiovascular Exam: Present: regular rate, normal rhythm, normal heart sounds. Absent: systolic murmur, diastolic murmur, rubs, gallop, clicks GI/Abdominal exam: Present: soft, normal bowel sounds. Absent: distended, tenderness, guarding, rebound, rigid Neurological exam: Present: alert, oriented X3, CN II-XII intact Skin exam: Present: warm, dry, intact, normal color, rash (Large area of erythema on her upper back to mid back with borders noted, there are some areas of hive-like rash noted also.) Course Vital Signs 07/15/18 14:46 Temperature 99.8 F H Pulse Rate 87 Respiratory 18 Rate Blood Pressure 129/77 O2 Sat by Pulse 98 Oximetry Medical Decision Making - Medical Decision Making 38-year-old female presented emergency from for rash over back. Patient has a history of cellulitis in the similar area. Patient's labwork reveals mild anemia no leukocytosis. Patient may admixture ALLERGIC versus infectious. Patient became Benadryl at home was started on Keflex at this time for cellulitis return parameters were discussed. - Lab Data Result diagrams: 07/15/18 15:20 07/15/18 15:20 Lab Results 07/15/18 07/15/18 07/15/18 Range/Units 15:20 15:20 15:20 WBC 8.1 (3.8-10.6) k/uL RBC 4.14 (3.80-5.40) m/uL Hgb 9.1 L (11.4-16.0) gm/dL Hct 29.9 L (34.0-46.0) % MCV 72.3 L (80.0-100.0) fL MCH 22.0 L (25.0-35.0) pg MCHC 30.4 L (31.0-37.0) g/dL RDW 16.2 H (11.5-15.5) % Plt Count 371 (150-450) k/uL Neutrophils % 78 % Lymphocytes % 16 % Monocytes % 2 % Eosinophils % 3 % Basophils % 0 % Neutrophils # 6.3 (1.3-7.7) k/uL Lymphocytes # 1.3 (1.0-4.8) k/uL Monocytes # 0.1 (0-1.0) k/uL Eosinophils # 0.3 (0-0.7) k/uL Basophils # 0.0 (0-0.2) k/uL Hypochromasia Marked Anisocytosis Slight Microcytosis Moderate Sodium 137 (137-145) mmol/L Potassium 4.1 (3.5-5.1) mmol/L Chloride 105 (98-107) mmol/L Carbon Dioxide 27 (22-30) mmol/L Anion Gap 5 mmol/L BUN 7 (7-17) mg/dL Creatinine 0.50 L (0.52-1.04) mg/dL Est GFR (CKD-EPI)AfAm >90 (>60 ml/min/1.73 sqM) Est GFR (CKD-EPI)NonAf >90 (>60 ml/min/1.73 sqM) Glucose 119 H (74-99) mg/dL Plasma Lactic Acid Juan 1.1 (0.7-2.0) mmol/L Calcium 8.4 (8.4-10.2) mg/dL Total Bilirubin 0.5 (0.2-1.3) mg/dL AST 31 (14-36) U/L ALT 16 (9-52) U/L Alkaline Phosphatase 57 (38-126) U/L Total Protein 6.5 (6.3-8.2) g/dL Albumin 3.6 (3.5-5.0) g/dL Disposition Clinical Impression: Cellulitis Disposition: HOME SELF-CARE Condition: Stable Instructions (If sedation given, give patient instructions): Cellulitis (ED) Additional Instructions: Please return to the Emergency Department if symptoms worsen or any other concerns. Prescriptions: Cephalexin [Keflex] 500 mg PO Q6HR #40 cap Is patient prescribed a controlled substance at d/c from ED?: No Referrals: [facility] [Primary Care Provider] - 1-2 days Time of Disposition: 15:59
[2018-07-15 15:35] LABS: Anisocytosis Slight; Basophils % (A) 0 %; Eosinophils # (A) 0.3 k/uL (0-0.7); Eosinophils % (A) 3 %; HCT 29.9 % (34.0-46.0); HGB 9.1 gm/dL (11.4-16.0); Hypochromasia Marked; Lymphocytes # (A) 1.3 k/uL (1.0-4.8); Lymphocytes % (A) 16 %; MCHC 30.4 g/dL (31.0-37.0); MCV 72.3 fL (80.0-100.0); Mean Platelet Volume 6.5; Microcytosis Moderate; Monocytes # (A) 0.1 k/uL (0-1.0); Monocytes % (A) 2 %; Neutrophils # (A) 6.3 k/uL (1.3-7.7); Neutrophils % (A) 78 %; Platelet Count 371 k/uL (150-450); RBC 4.14 m/uL (3.80-5.40); RDW 16.2 % (11.5-15.5); WBC 8.1 k/uL (3.8-10.6)
[2018-07-15 15:44] LABS: ALT 16 U/L (9-52); AST 31 U/L (14-36); Albumin 3.6 g/dL (3.5-5.0); Alkaline Phosphatase 57 U/L (38-126); Anion Gap 5 mmol/L; Blood Urea Nitrogen 7 mg/dL (7-17); Calcium 8.4 mg/dL (8.4-10.2); Carbon Dioxide 27 mmol/L (22-30); Chloride 105 mmol/L (98-107); Glucose 119 mg/dL (74-99); Sodium 137 mmol/L (137-145); Total Bilirubin 0.5 mg/dL (0.2-1.3); Total Protein 6.5 g/dL (6.3-8.2)
[2018-07-15 15:45] LABS: Potassium 4.1 mmol/L (3.5-5.1)
[2018-07-15 16:18] VITALS: BP 135/85; PULSE 85; TEMP 98.7
== END 2018-07-15 16:16 | disposition home or self-care (01) ==
LOC: EC 14:42
DX: L03.312 Cellulitis of back [any part except buttock and flank] (principal); D64.9 Anemia, unspecified; J45.909 Unspecified asthma, uncomplicated; F32.9 Major depressive disorder, single episode, unspecified; F41.9 Anxiety disorder, unspecified; Z87.891 Personal history of nicotine dependence; Z79.899 Other long term (current) drug therapy; Z87.2 Personal history of diseases of the skin and subcutaneous tissue
CPT/HCPCS: 36415; 80053; 83605; 85025; 87040; 99283; 96374; 96375; 96361; J1200

== ENCOUNTER 2018-08-10 19:15 | Inpatient (IN) | payer OTHER ==
[2018-08-10] MEDS ORDERED: RX INFO: IV CONTRAST WAS GIVEN 1 EACH MISC MISCELLANE PRN (21:40)
[2018-08-10] MEDS ORDERED: HYDROcodone/APAP 5-325MG 1 EACH TAB PO STA (21:41)
[2018-08-10] MEDS ORDERED: SODIUM CHLORIDE 0.9% 1,000 ML IV ONE (21:41)
[2018-08-10] MEDS ORDERED: ACETAMINOPHEN TAB 500 MG TAB PO STA (21:42)
--- NOTE | 2018-08-10 21:45 | ED ---
General Adult HPI - General Source: patient Mode of arrival: ambulatory Limitations: no limitations <Griselda Jansen - Last Filed: 08/11/18 02:38> <Stephane Denny - Last Filed: 08/11/18 04:19> - General Chief complaint: Headache Stated complaint: lynn Time Seen by Provider: 08/10/18 21:27 - History of Present Illness Initial comments: 38-year-old female presenting with headache and vision changes. Patient states she was in the emergency department on August 08 for similar symptoms. She states she was given Valium and cholesterol in her symptoms improved. She states over the last couple of days they have continued to worsen and today she developed blurry vision. She admits to subjective fever at home as well as some erythema on her left lower extremity. She denies history of DVT or PE but states she does have a history of lupus. She has been anticoagulated in the past for suspected PE but is no longer taking blood thinners. She denies history of pseudotumor cerebri. (Griselda Jansen) - Related Data Previous Rx's Medication Instructions Recorded Cyclobenzaprine [Flexeril] 10 mg PO TID PRN #15 tab 08/08/18 Allergies Allergy/AdvReac Type Severity Reaction Status Date / Time No Known Allergies Allergy Verified 08/08/18 16:10 Review of Systems ROS Other: All systems not noted in ROS Statement are negative. <Griselda Jansen - Last Filed: 08/11/18 02:38> ROS Other: All systems not noted in ROS Statement are negative. <Stephane Denny - Last Filed: 08/11/18 04:19> ROS Statement: Those systems with pertinent positive or pertinent negative responses have been documented in the HPI. Review of Systems Constitutional: Denies fever, chills Eyes: Positive change in vision, Denies pain Ears, nose, mouth, throat: Denies headaches, Denies sore throat Cardiovascular: Denies chest pain. Denies palpitations Respiratory: Denies shortness of breath, Denies cough Gastrointestinal: Denies abdominal pain. Denies nausea, vomiting, diarrhea. Genitourinary: Denies hematuria, Denies infections Musculoskeletal: Denies pain, Denies swelling Integumentary: Denies rash Neurological: Positive headache, Denies focal weakness, focal numbness Psychiatric: Denies anxiety, Denies depression Hematologic/Lymphatic: Denies easy bleeding or bruising (Griselda Jansen) Past Medical History Past Medical History: Asthma, Pulmonary Embolus (PE), Skin Disorder Additional Past Medical History / Comment(s): brochitis Lupus anemia, chronic cellulitis-neck/back, HPV, bipolar disorder, hep C History of Any Multi-Drug Resistant Organisms: None Reported Past Surgical History: Section, Tubal Ligation Additional Past Surgical History / Comment(s): lupus, x3 c-sections Additional Past Anesthesia/Blood Transfusion Reaction / Comment(s): pt has not had transfusion. Past Psychological History: Anxiety, Bipolar, Depression Smoking Status: Former smoker Past Alcohol Use History: None Reported Past Drug Use History: None Reported - Past Family History Mother Family Medical History: Diabetes Mellitus Additional Family Medical History / Comment(s): lupus, bipolar, drug dependency. Father Additional Family Medical History / Comment(s): "heart problems" <Griselda Jansen - Last Filed: 08/11/18 02:38> General Exam Limitations: no limitations <Griselda Jansen - Last Filed: 08/11/18 02:38> - General Exam Comments Initial Comments: General: Awake, alert, No acute Distress HENT: Normocephalic. Atraumatic Eyes: PERRL. EOMI. No scleral icterus. No injected conjunctiva. Visual acuity: Both eyes 20/50, left eye 20/50, right eye 20/15 Neck: Full ROM. No nuchal rigidity Chest/Lungs: Clear to auscultation bilaterally. No wheezing, rhonchi, or rales Cardiac: Regular rate, rhythm. No murmurs or rubs Abdomen/GI: Soft, nontender, nondistended. No rebound, guarding, or rigidity. Musculoskeletal: Full ROM Skin: Warm, dry, intact Neurologic: A/Ox3, no weakness, no sensory deficit, no abnormal gait, no coordination deficit (Griselda Jansen) Course Vital Signs 08/10/18 08/11/18 08/11/18 20:21 01:27 02:03 Temperature 100.1 F H 98.4 F Pulse Rate 76 72 Respiratory 20 18 Rate Blood Pressure 140/73 135/71 O2 Sat by Pulse 95 96 Oximetry Procedures - Lumbar Puncture Consent Obtained: written consent Indication for Procedure: headache Patient Position: left lateral decubitus Local Anesthetic Used: Lidocaine 1% Spinal Needle Gauge: 22G Spinal Needle Length: Other (5 in) Interspace Used: L4-L5 Complications: unable to obtain CSF Patient Tolerated Procedure: well <Griselda Jansen - Last Filed: 08/11/18 02:38> Medical Decision Making - Lab Data Result diagrams: 08/10/18 22:52 08/10/18 22:52 <Griselda Jansen - Last Filed: 08/11/18 02:38> - Lab Data Result diagrams: 08/10/18 22:52 08/10/18 22:52 <Stephane Denny - Last Filed: 08/11/18 04:19> - Medical Decision Making 38-year-old female presenting with headache and vision changes. Initial exam the patient is awake alert she does have an elevated temperature otherwise her vitals are stable. She was seen in the emergency department 2 days prior and had a negative workup. She presents today with worsening headache and vision changes. Patient's laboratory workup here is negative. She underwent CTV and she is a history of lupus, however that was negative for acute process. Patient consented to lumbar puncture initially was unable to obtain CSF. Anesthesiology was able to complete the lumbar puncture and found her pressure to be 55. Patient's CSF studies are in process and have been signed out to the oncoming physician while she awaits results. (Griselda Jansen) I was asked to complete admission orders for this patient. Patient found to h ave elevated CSF pressures concerning for pseudotumor cerebri. Patient being admitted for further symptom control. Neurology consultation requested. Patient also to follow with ophthalmology for visual field mapping. (Stephane Denny) - Lab Data Lab Results 08/10/18 08/10/18 08/11/18 Range/Units 22:52 22:52 02:04 WBC 7.0 (3.8-10.6) k/uL RBC 4.20 (3.80-5.40) m/uL Hgb 9.3 L (11.4-16.0) gm/dL Hct 30.2 L (34.0-46.0) % MCV 72.0 L (80.0-100.0) fL MCH 22.2 L (25.0-35.0) pg MCHC 30.8 L (31.0-37.0) g/dL RDW 16.6 H (11.5-15.5) % Plt Count 385 (150-450) k/uL Neutrophils % 72 % Lymphocytes % 21 % Monocytes % 3 % Eosinophils % 3 % Basophils % 0 % Neutrophils # 5.1 (1.3-7.7) k/uL Lymphocytes # 1.5 (1.0-4.8) k/uL Monocytes # 0.2 (0-1.0) k/uL Eosinophils # 0.2 (0-0.7) k/uL Basophils # 0.0 (0-0.2) k/uL Hypochromasia Marked Anisocytosis Slight Microcytosis Moderate Sodium 136 L (137-145) mmol/L Potassium 4.1 (3.5-5.1) mmol/L Chloride 102 (98-107) mmol/L Carbon Dioxide 26 (22-30) mmol/L Anion Gap 8 mmol/L BUN 10 (7-17) mg/dL Creatinine 0.63 (0.52-1.04) mg/dL Est GFR (CKD-EPI)AfAm >90 (>60 ml/min/1.73 sqM) Est GFR (CKD-EPI)NonAf >90 (>60 ml/min/1.73 sqM) Glucose 92 (74-99) mg/dL Calcium 9.1 (8.4-10.2) mg/dL HCG, Qual Not Detected CSF Tube Number 4 CSF Volume 4.0 CSF Appearance Clear CSF Color Colorless CSF RBC 1 (0-10) u/L CSF Tot Nucleated Cells 2 (0-5) u/L CSF Glucose 52 (40-70) mg/dL CSF Total Protein 39 (12-60) mg/dL Disposition <Griselda Jansen - Last Filed: 08/11/18 02:38> <Stephane Denny - Last Filed: 08/11/18 04:19> Clinical Impression: Intractable headache, Vision changes Disposition: ADMITTED IP TO THIS HOSP Condition: Fair Referrals: [facility] [Primary Care Provider] - 1-2 days
[2018-08-10 23:44] LABS: Anisocytosis Slight; Basophils % (A) 0 %; Eosinophils # (A) 0.2 k/uL (0-0.7); Eosinophils % (A) 3 %; HCT 30.2 % (34.0-46.0); HGB 9.3 gm/dL (11.4-16.0); Hypochromasia Marked; Lymphocytes # (A) 1.5 k/uL (1.0-4.8); Lymphocytes % (A) 21 %; MCH 22.2 pg (25.0-35.0); MCHC 30.8 g/dL (31.0-37.0); Mean Platelet Volume 6.7; Microcytosis Moderate; Monocytes # (A) 0.2 k/uL (0-1.0); Monocytes % (A) 3 %; Neutrophils # (A) 5.1 k/uL (1.3-7.7); Neutrophils % (A) 72 %; Platelet Count 385 k/uL (150-450); RDW 16.6 % (11.5-15.5)
[2018-08-10 23:46] LABS: African American GFR (CKD) >90 (>60 ml/min/1.73 sqM); Anion Gap 8 mmol/L; Blood Urea Nitrogen 10 mg/dL (7-17); Calcium 9.1 mg/dL (8.4-10.2); Carbon Dioxide 26 mmol/L (22-30); Chloride 102 mmol/L (98-107); Glucose 92 mg/dL (74-99); Potassium 4.1 mmol/L (3.5-5.1); Sodium 136 mmol/L (137-145)
[2018-08-10] MEDS ORDERED: MORPHINE SULFATE 4 MG/ML SYRINGE IVP STA (23:54)
--- NOTE | 2018-08-11 00:04 | CT ---
EXAM: CT Head With Intravenous Contrast CLINICAL HISTORY: ITS.REASON CT Reason: history of lupus with headache and blurred vision TECHNIQUE: Axial computed tomography images of the head/brain with intravenous contrast. CTDI is 49.1 mGy and DLP is 1133 mGy-cm. This CT exam was performed using one or more of the following dose reduction techniques: automated exposure control, adjustment of the mA and/or kV according to patient size, and/or use of iterative reconstruction technique. COMPARISON: CT head on 08/08/2018 FINDINGS: Brain: Unremarkable. No hemorrhage. No edema. Normal enhancement. Ventricles: Unremarkable. No ventriculomegaly. Bones/joints: Unremarkable. No acute fracture. Soft tissues: Unremarkable. Sinuses: Mild mucosal thickening in the maxillary sinuses. Mastoid air cells: Unremarkable as visualized. No mastoid effusion. IMPRESSION: No acute intracranial abnormality. No abnormal enhancement.
[2018-08-11 00:11] LABS: HCG,Qualitative Serum Not Detected
[2018-08-11] MEDS ORDERED: MORPHINE SULFATE 4 MG/ML SYRINGE IVP STA ×2 (01:26→11:56)
--- NOTE | 2018-08-11 02:11 | P.PCN ---
Date of Procedure: 08/11/18 Preoperative Diagnosis: Fever and headache Postoperative Diagnosis: Same Procedure(s) Performed: Lumbar puncture Anesthesia: local Surgeon: Master Smith Estimated Blood Loss (ml): 0 Pathology: other (4 aliquots of CSF to laboratory) Condition: stable Disposition: no change Indications for Procedure: Anesthesia consulted by ED due to failed prior attempts at LP Operative Findings: Opening pressure 55 mmH2O Description of Procedure: After informed consent, patient was placed in a sitting position. Skin prepped with betadyne and draped. 1% lidocaine 5 ml infiltrated in L3-4 interspace. Provided 20 g needle advanced to loss of resistance. Patient gently placed in lateral position and opening pressure measured (55 mmH2O). 4 aliquots of 3 ml CSF obtained by gravity. Needle withdrawn and bandaid used to cover puncture site. Patient tolerated the procedure well. Findings relayed to Dr Jansen. All tests on CSF per ED physician.
[2018-08-11 03:19] LABS: Glucose,CSF 52 mg/dL (40-70); Total Protein,CSF 39 mg/dL (12-60)
[2018-08-11 04:04] LABS: Appearance,CSF Clear; CSF Tube Number 4; Nucleated Cells, CSF 2 u/L (0-5); Red Blood Cell,CSF 1 u/L (0-10)
[2018-08-11] MEDS ORDERED: ONDANSETRON 4 MG/2 ML VIAL IVP PRN (04:10)
[2018-08-11] MEDS ORDERED: NALOXONE 0.4 MG/ML 1 ML VIAL IV PRN (04:10)
[2018-08-11] MEDS ORDERED: ACETAMINOPHEN TAB 325 MG TAB PO PRN (04:10)
[2018-08-11] MEDS ORDERED: FUROSEMIDE 10 MG/ML 2 ML VIAL IV ONE (04:16)
[2018-08-11] MEDS ORDERED: MORPHINE SULFATE 4 MG/ML SYRINGE IV STA (05:40)
[2018-08-11] MEDS ORDERED: HYDROcodone/APAP 5-325MG 1 EACH TAB PO PRN (05:41)
[2018-08-11] MEDS ORDERED: FAMOTIDINE 20 MG TAB PO SCH (09:00)
[2018-08-11] MEDS ORDERED: acetaZOLAMIDE 250 MG TAB PO SCH (09:00)
[2018-08-11] MEDS ORDERED: FUROSEMIDE 20 MG TAB PO SCH (09:00)
[2018-08-11 09:07] VITALS: BMI 46.3
[2018-08-11] MEDS ORDERED: MORPHINE SULFATE 4 MG/ML SYRINGE IVP PRN (12:16)
--- NOTE | 2018-08-11 12:33 | P.HPIM ---
History of Present Illness Combined H&P and discharge summary Hospital course: This is a pleasant 38 years old female with past medical history of lupus, psor iasis and hep C therapy, history of depression and substance abuse, presents with worsening headaches and blurred vision over 3-4 days, patient came to emergency room 34 days ago for similar complaint of pain at the back of her head, which was controlled symptomatic. On discharge, however yesterday she has worsening pain which is mainly on the back of her head radiating to the pentecostalism about 90/10 in severity she describes it as "very pully" kind of pain, associated with blurred vision more on the left eye with no diplopia currently and no strabismus. Patient has some nausea but no vomiting, she doesn't have bowel movement over the last 2 days, no upper respiratory tract symptoms or sick contacts. No chest pain or dyspnea or coughing. No urinary problem or complaint. No fatigue or malaise. No weakness or abnormal sensation or numbness in extremities. On admission patient has low-grade fever of 100.1. On admission her white cell count was within normal limits at 7K, hemoglobin 9.3, platelets within normal limits. BMP showing mild hyponatremia at 136 with no other abnormality noted with creatinine within normal limits at 0.6. In the emergency room patient had spinal tap which shows elevated spell or pressure at 55 mm of H2O, spinal tap results obtained showing 2 nucleated cells, normal glucose and protein level. In the Gram stain shows no organisms are polymorphonuclear leukocytes (primary results) Also patient was found to have maculopapular rash, on the trunk anteriorly and posteriorly and the proximal extremity, with no conjunctivitis. Patient has history of fresh in the back earlier this month however as per patient and family patient has worsening rash currently. CAT scan of the head with IV contrast showingno acute process or ventriculomegaly as per radiologist reports In the emergency room she got pain medicine Leckner: Morphine and Tylenol. Also Zofran and 1 time dose of Lasix and started on Diamox 500 mg twice a day for concerns of increased intracranial pressure. There is no neurologist [facility] over the weekend. Patient needs to be transferred to a tertiary care center, I discussed with the patient and she is agreeable for the transfer. I discussed the case with the neurointensive the doctor, done at [facility] and he kindly accepted the patient to the medical floors with the neuro consult. Also patient is being evaluated by infectious disease currently who at bedside, will follow their recommendation. Patient is stable for transfer Review of systems CONSTITUTIONAL: no malaise, no fatigue. HEENT: No recent hearing problems. Denied any sore throat. CARDIOVASCULAR: No orthopnea, PND, no palpitations, no syncope. PULMONARY: No shortness of breath, no cough, no hemoptysis. GASTROINTESTINAL: No diarrhea, no vomiting, no abdominal pain. Normoactive bowel sounds. NEUROLOGICAL: No headaches, no weakness, no numbness. HEMATOLOGICAL: Denies any bleeding or petechiae. GENITOURINARY: Denies any burning micturition, frequency, or urgency. MUSCULOSKELETAL/RHEUMATOLOGICAL: Denies any joint pain, swelling, or any muscle pain. ENDOCRINE: Denies any polyuria or polydipsia. Physical exam GENERAL: The patient is alert and oriented x3, not in any acute distress. Well developed, well nourished. HEENT: Pupils are round and equally reacting to light. EOMI. No scleral icterus. No conjunctival pallor. Normocephalic, atraumatic. No pharyngeal erythema. No thyromegaly. CARDIOVASCULAR: S1 and S2 present. No murmurs, rubs, or gallops. PULMONARY: Chest is clear to auscultation, no wheezing or crackles. ABDOMEN: Soft, nontender, nondistended, normoactive bowel sounds. No palpable o rganomegaly. MUSCULOSKELETAL: No joint swelling or deformity. EXTREMITIES: No cyanosis, clubbing, or pedal edema. -NEUROLOGICAL: Gross neurological examination did not reveal any focal deficits. She has blurred vision, more on the left than right eye, no weakness noted in extraocular muscular movements. Strength is 5/5 in all 4 proximity, sensation is intact. nuchal meningismus is present -SKIN: Maculopapular rash, more on the trunk and proximal extremities Gait: Normal Diagnosis headache and blurred vision , rule out meningitis elevated CSF opening pressure (55 cm) Maculopapular rash, more on the trunk and proximal extremities Plan Patient will need to be transferred to her [facility] for further neurological evaluation. Continue with pain management. Infectious disease consult was obtained, i discussed the case with and he is going to evaluate the pt and will follow his recommendations. Patient is currently on diuretic, we will defer further management to the accepting team Prognosis is guarded Review of Systems Combined H&P and discharge summary Hospital course: This is a pleasant 38 years old female with past medical history of lupus, psoriasis and hep C therapy, history of depression and substance abuse, presents with worsening headaches and blurred vision over 3-4 days, patient came to emergency room 34 days ago for similar complaint of pain at the back of her head, which was controlled symptomatic. On discharge, however yesterday she has worsening pain which is mainly on the back of her head radiating to the pentecostalism about 90/10 in severity she describes it as "very pully" kind of pain, associated with blurred vision more on the left eye with no diplopia currently and no strabismus. Patient has some nausea but no vomiting, she doesn't have bowel movement over the last 2 days, no upper respiratory tract symptoms or sick contacts. No chest pain or dyspnea or coughing. No urinary problem or comp laint. No fatigue or malaise. No weakness or abnormal sensation or numbness in extremities. On admission patient has low-grade fever of 100.1. On admission her white cell count was within normal limits at 7K, hemoglobin 9.3, platelets within normal limits. BMP showing mild hyponatremia at 136 with no other abnormality noted with creatinine within normal limits at 0.6. In the emergency room patient had spinal tap which shows elevated spell or pressure at 55 mm of H2O, spinal tap results obtained showing 2 nucleated cells, normal glucose and protein level. In the Gram stain shows no organisms are polymorphonuclear leukocytes (primary results) Also patient was found to have maculopapular rash, on the trunk anteriorly and posteriorly and the proximal extremity, with no conjunctivitis. Patient has history of fresh in the back earlier this month however as per patient and family patient has worsening rash currently. CAT scan of the head with IV contrast showingno acute process or ventri culomegaly as per radiologist reports In the emergency room she got pain medicine Leckner: Morphine and Tylenol. Also Zofran and 1 time dose of Lasix and started on Diamox 500 mg twice a day for concerns of increased intracranial pressure. There is no neurologist [facility] over the weekend. Patient needs to be transferred to a tertiary care center, I discussed with the patient and she is agreeable for the transfer. I discussed the case with the neurointensive the doctor, done at [facility] and he kindly accepted the patient to the medical floors with the neuro consult. Also patient is being evaluated by infectious disease currently who at bedside, will follow their recommendation. Patient is stable for transfer Review of systems CONSTITUTIONAL: no malaise, no fatigue. HEENT: No recent hearing problems. Denied any sore throat. CARDIOVASCULAR: No orthopnea, PND, no palpitations, no syncope. PULMONARY: No shortness of breath, no cough, no hemoptysis. GASTROINTESTINAL: No diarrhea, no vomiting, no abdominal pain. Normoactive bowel sounds. NEUROLOGICAL: No headaches, no weakness, no numbness. HEMATOLOGICAL: Denies any bleeding or petechiae. GENITOURINARY: Denies any burning micturition, frequency, or urgency. MUSCULOSKELETAL/RHEUMATOLOGICAL: Denies any joint pain, swelling, or any muscle pain. ENDOCRINE: Denies any polyuria or polydipsia. Physical exam GENERAL: The patient is alert and oriented x3, not in any acute distress. Well developed, well nourished. HEENT: Pupils are round and equally reacting to light. EOMI. No scleral icterus. No conjunctival pallor. Normocephalic, atraumatic. No pharyngeal erythema. No t hyromegaly. CARDIOVASCULAR: S1 and S2 present. No murmurs, rubs, or gallops. PULMONARY: Chest is clear to auscultation, no wheezing or crackles. ABDOMEN: Soft, nontender, nondistended, normoactive bowel sounds. No palpable organomegaly. MUSCULOSKELETAL: No joint swelling or deformity. EXTREMITIES: No cyanosis, clubbing, or pedal edema. -NEUROLOGICAL: Gross neurological examination did not reveal any focal deficits. She has blurred vision, more on the left than right eye, no weakness noted in extraocular muscular movements. Strength is 5/5 in all 4 proximity, sensation is intact. -SKIN: Maculopapular rash, more on the trunk and proximal extremities Gait: Normal Diagnosis headache and blurred vision elevated CSF opening pressure (55 cm) Maculopapular rash, more on the trunk and proximal extremities Plan Patient will need to be transferred to her [facility] for further neurological evaluation. Continue with pain management. Infectious disease consult was obtained and will follow the recommendation. Patient is currently on diuretic, we will defer further management to the accepting team Prognosis is guarded Past Medical History Past Medical History: Asthma, Pulmonary Embolus (PE), Skin Disorder Additional Past Medical History / Comment(s): brochitis Lupus anemia, chronic cellulitis-neck/back, HPV, bipolar disorder, hep C History of Any Multi-Drug Resistant Organisms: None Reported Past Surgical History: Section, Tubal Ligation Additional Past Surgical History / Comment(s): lupus, x3 c-sections Additional Past Anesthesia/Blood Transfusion Reaction / Comment(s): pt has not h ad transfusion. Past Psychological History: Anxiety, Bipolar, Depression Additional Psychological History / Comment(s): pt signed off rights to 1 son and other son lives with his dad. . went to [facility], before that was living with a friend Smoking Status: Current every day smoker Past Alcohol Use History: None Reported Additional Past Alcohol Use History / Comment(s): started smoking at age 16(1996) and quit recently 2018 was smoking 1/2 ppd currently smoking 5-6 cigarettes per day Past Drug Use History: None Reported Additional Drug Use History / Comment(s): patient has been clean for 1 1/2 years - Past Family History Mother Family Medical History: Diabetes Mellitus Additional Family Medical History / Comment(s): lupus, bipolar, drug dependency. Father Additional Family Medical History / Comment(s): "heart problems" Medications and Allergies Home Medications Medication Instructions Recorded Confirmed Type Cyclobenzaprine [Flexeril] 10 mg PO TID PRN #15 tab 08/08/18 08/11/18 Rx Ibuprofen [Motrin Ib] 400 mg PO Q6H PRN 08/11/18 08/11/18 History Allergies Allergy/AdvReac Type Severity Reaction Status Date / Time No Known Allergies Allergy Verified 08/11/18 07:46 Physical Exam Vitals: Vital Signs Temp Pulse Pulse Resp BP BP Pulse Ox 08/11/18 09:06 97.8 F 59 L 16 107/67 100 08/11/18 07:21 98.1 F 76 18 114/83 96 08/11/18 05:56 64 18 106/63 100 08/11/18 02:03 98.4 F 08/11/18 01:27 72 18 135/71 96 08/10/18 20:21 100.1 F H 76 20 140/73 95 Intake and Output 08/10/18 08/11/18 08/11/18 22:59 06:59 14:59 Other: Weight 122.47 kg Results CBC & Chem 7: 08/10/18 22:52 08/10/18 22:52 Labs: Abnormal Lab Results - Last 24 Hours (Table) 08/10/18 08/10/18 Range/Units 22:52 22:52 Hgb 9.3 L (11.4-16.0) gm/dL Hct 30.2 L (34.0-46.0) % MCV 72.0 L (80.0-100.0) fL MCH 22.2 L (25.0-35.0) pg MCHC 30.8 L (31.0-37.0) g/dL RDW 16.6 H (11.5-15.5) % Sodium 136 L (137-145) mmol/L Microbiology - Last 24 Hours (Table) 08/11/18 02:04 CSF Gram Stain - Preliminary Cerebral Spinal Fluid Thrombosis Risk Factor Assmnt - Choose All That Apply Each Factor Represents 1 point: Obesity (BMI >25) Each Risk Factor Represents 3 Points: Positive Lupus Anticoagulant Other congenital or acquired thrombophilia - If yes, enter type in comment: No Thrombosis Risk Factor Assessment Total Risk Factor Score: 4 Thrombosis Risk Factor Assessment Level: Moderate Risk
[2018-08-11 12:56] VITALS: BP 122/58; PULSE 60; RESP 18; TEMP 97.9
--- NOTE | 2018-08-11 13:45 | P.CONS ---
History of Present Illness - Reason for Consult Consult date: 08/11/18 - Chief Complaint headache - History of Present Illness 38-year-old female who has multiple medical troubles that include lupus, obesity, and more recently diagnosed hepatitis C as well as bipolar disorder presents to the emergency center with complaints of increasing headache and some visual change. The patient relates that she's been having troubles with headaches for quite some time but recently they have changed or worsened. She was in the emergency center on 08/08/2018. At that point in time she was not having acute visual changes that was very uncomfortable. She was given benzodiazepine the form of Valium which alert a marked improvement and was discharged out of the emergency center with muscle relaxant with cyclobenzaprine. Really since that time she's been having some ongoing difficulties with her headache which has been increasing in nature. The base of her neck as were the greatest amount of her pain has been. She did have some transient relief after her last year visit but then again has markedly worsened. Upon presentation to resume at this point in time because her headache was worsened lumbar puncture was performed, she was in a laying position opening pressure was 55. She relates since lumbar puncture headache is waxed and waned and with the current morphine doses she was given is the best she has felt in 3 days. She also is complaining of some diplopia that has waxed and waned. She's also had some worsening of somewhat of a chronic rash. She was emergency center on July 15 which point in time the rash was more pronounced on her back at that point in time she was given some cephalexin and discharged in emergency center. Antibiotic therapy has been completed about 2 weeks already. The patient does not believe antibiotic significantly impacted her somewhat chronic skin troubles which includes psoriasis. The patient relates that she has completed her rehab for her methamphetamine abuse, and she has regained custody of her 4-year-old child. She does relate that the child is under good care at this point in time while she is in the hospital. Review of Systems HEENT: As per the HPI severe headache that is waxing and waning with some visual changes especially diplopia. She's had some nausea without emesis. The neck appears to be the point of greatest discomfort with her headache, she does com plain of a mild photophobia that the Benadryl though wasn't wet Lungs: Denies significant shortness of breath, cough, sputum production, or hemoptysis. Cardiovascular: Denies significant shortness of breath, chest pain, chest wall pain, orthopnea, dyspnea on exertion, syncope Gastrointestinal:Denies nausea, vomiting, diarrhea, constipation, hematemesis, melena, hematochezia. No no significant change of bowel habit noticed. Musculoskeletal: denies significant myalgias or arthralgias. No new joint swelling. Denies new back pain. Skin: Complains of chronic rash that waxes and wanes possibly worse now than usual Neuro: As per HPI severe headache diplopia Denies any new onset weakness or difficulty with ambulation. Denies falls or seizures. Psychiatric: Chronic anxiety and depression Endocrine: Chronic fatigue and chronic weight gain Past Medical History Past Medical History: Asthma, Pulmonary Embolus (PE), Skin Disorder Additional Past Medical History / Comment(s): brochitis Lupus anemia, chronic cellulitis-neck/back, HPV, bipolar disorder, hep C History of Any Multi-Drug Resistant Organisms: None Reported Past Surgical History: Section, Tubal Ligation Additional Past Surgical History / Comment(s): lupus, x3 c-sections Additional Past Anesthesia/Blood Transfusion Reaction / Comm: pt has not had transfusion. Past Psychological History: Anxiety, Bipolar, Depression Additional Psychological History / Comment(s): Patient relates that she has 2 children one she has regained from foster care who is 4 years old, 6-year-old the other son lives with his dad. . went to [facility], before that was living with a friend. She does have a stable living environment at this time. And her long-term friend will be taking care of her child while she is hospitalized. Relates no current recreational drug use. Was a tobacco smoker. Denies alcohol use. Neck currently working. No international travel. No experience Smoking Status: Current every day smoker Past Alcohol Use History: None Reported Additional Past Alcohol Use History / Comment(s): started smoking at age 16(1996) and quit recently 2018 was smoking 1/2 ppd currently smoking 5-6 cigarettes per day Past Drug Use History: None Reported Additional Drug Use History / Comment(s): patient has been clean for 1 1/2 years - Past Family History Mother Family Medical History: Diabetes Mellitus Additional Family Medical History / Comment(s): lupus, bipolar, drug dependency. Father Additional Family Medical History / Comment(s): "heart problems" Medications and Allergies Home Medications and Allergies Comment(s): Current Medications Acetaminophen (Tylenol Tab) 650 mg PO Q6HR PRN PRN Reason: Mild Pain or Fever > 100.5 Hydrocodone Bitart/Acetaminophen ([place] 5-325) 1 each PO Q6HR PRN PRN Reason: Pain Last Admin: 08/11/18 09:22 Dose: 1 each Documented by: Acetazolamide (Diamox) 500 mg PO BID [facility] Last Admin: 08/11/18 09:22 Dose: 500 mg Documented by: Famotidine (Pepcid) 20 mg PO BID [facility] Last Admin: 08/11/18 09:23 Dose: 20 mg Documented by: Furosemide (Lasix) 20 mg PO DAILY [facility] Last Admin: 08/11/18 09:23 Dose: 20 mg Documented by: Miscellaneous Information (Rx Info: Iv Contrast Was Given) 1 each MISCELLANE DAILY PRN PRN Reason: Per Protocol Stop: 08/12/18 21:41 Morphine Sulfate (Morphine Sulfate (Inj)) 4 mg IVP Q4HR PRN PRN Reason: Pain Naloxone HCl (Narcan) 0.2 mg IV Q2M PRN PRN Reason: Opioid Reversal Ondansetron HCl (Zofran) 4 mg IVP Q8HR PRN PRN Reason: Nausea And Vomiting Last Admin: 08/11/18 08:29 Dose: 4 mg Documented by: Home Medications Medication Instructions Recorded Confirmed Type Cyclobenzaprine [Flexeril] 10 mg PO TID PRN #15 tab 08/08/18 08/11/18 Rx Ibuprofen [Motrin Ib] 400 mg PO Q6H PRN 08/11/18 08/11/18 History Allergies Allergy/AdvReac Type Severity Reaction Status Date / Time No Known Allergies Allergy Verified 08/11/18 07:46 Physical Exam Vitals: Vital Signs Temp Pulse Pulse Resp BP BP Pulse Ox 08/11/18 12:55 97.9 F 60 18 122/58 97 08/11/18 09:06 97.8 F 59 L 16 107/67 100 08/11/18 07:21 98.1 F 76 18 114/83 96 08/11/18 05:56 64 18 106/63 100 08/11/18 02:03 98.4 F 08/11/18 01:27 72 18 135/71 96 08/10/18 20:21 100.1 F H 76 20 140/73 95 Intake and Output 08/10/18 08/11/18 08/11/18 22:59 06:59 14:59 Other: Weight 122.47 kg 38-year-old woman who was of a fair skin tone, redhead. Obesity. HEENT: Anicteric conjunctiva are pink and moist nasal mucosa grossly intact without significant lesions, there is no thrush. Neck: The neck is supple but is uncomfortable upon range of motion. There is no palpable lymphadenopathy or thyromegaly. Lungs: Good bilateral air entry without significant crackles or wheezing. There is no significant bronchial sounds. There is no egophony or dullness. Heart: Regular rate and rhythm with an audible S1-S2, no S3 no S4. There is no significant murmur click or rub, PMI was nondisplaced. Abdomen: Positive bowel sounds soft and nontender without palpable masses or organomegaly. There was no guarding or rebound. Extremities: The upper extremities have excellent pulses they are symmetric, no significant petechiae or telangiectasia. No splinter hemorrhages were noted. The lower extremities are free from significant edema. The peripheral pulses were 2+ and symmetric. Neuro: Awake alert oriented to person place and time. The extraocular movements are conjugate and intact. There is no nystagmus. The gaze is conjugate no evidence of palsy. Skin : Patient has fair skin with many freckles in patches of psoriasis are not ed. There is also a somewhat scattered maculopapular rash that is most noticed on her back upper chest and upper thighs. She has similar rash when she was in the emergency center on July 15 that was treated with cephalexin. Patient does not believe it has gotten much better. She has evidence of Vera especially of the abdominal fold. Results CBC & Chem 7: 08/10/18 22:52 08/10/18 22:52 Labs: Abnormal Lab Results - Last 24 Hours (Table) 08/10/18 08/10/18 Range/Units 22:52 22:52 Hgb 9.3 L (11.4-16.0) gm/dL Hct 30.2 L (34.0-46.0) % MCV 72.0 L (80.0-100.0) fL MCH 22.2 L (25.0-35.0) pg MCHC 30.8 L (31.0-37.0) g/dL RDW 16.6 H (11.5-15.5) % Sodium 136 L (137-145) mmol/L Microbiology - Last 24 Hours (Table) 08/11/18 02:04 CSF Gram Stain - Preliminary Cerebral Spinal Fluid Laboratory Results WBC 7.0 k/uL (3.8-10.6) 08/10/18 22:52 RBC 4.20 m/uL (3.80-5.40) 08/10/18 22:52 Hgb 9.3 gm/dL (11.4-16.0) L 08/10/18 22:52 Hct 30.2 % (34.0-46.0) L 08/10/18 22:52 MCV 72.0 fL (80.0-100.0) L 08/10/18 22:52 MCH 22.2 pg (25.0-35.0) L 08/10/18 22:52 MCHC 30.8 g/dL (31.0-37.0) L 08/10/18 22:52 RDW 16.6 % (11.5-15.5) H 08/10/18 22:52 Plt Count 385 k/uL (150-450) 08/10/18 22:52 Neutrophils % 72 % 08/10/18 22:52 Lymphocytes % 21 % 08/10/18 22:52 Monocytes % 3 % 08/10/18 22:52 Eosinophils % 3 % 08/10/18 22:52 Basophils % 0 % 08/10/18 22:52 Neutrophils # 5.1 k/uL (1.3-7.7) 08/10/18 22:52 Lymphocytes # 1.5 k/uL (1.0-4.8) 08/10/18 22:52 Monocytes # 0.2 k/uL (0-1.0) 08/10/18 22:52 Eosinophils # 0.2 k/uL (0-0.7) 08/10/18 22:52 Basophils # 0.0 k/uL (0-0.2) 08/10/18 22:52 Hypochromasia Marked 08/10/18 22:52 Anisocytosis Slight 08/10/18 22:52 Microcytosis Moderate 08/10/18 22:52 Sodium 136 mmol/L (137-145) L 08/10/18 22:52 Potassium 4.1 mmol/L (3.5-5.1) 08/10/18 22:52 Chloride 102 mmol/L (98-107) 08/10/18 22:52 Carbon Dioxide 26 mmol/L (22-30) 08/10/18 22:52 Anion Gap 8 mmol/L 08/10/18 22:52 BUN 10 mg/dL (7-17) 08/10/18 22:52 Creatinine 0.63 mg/dL (0.52-1.04) 08/10/18 22:52 Est GFR (CKD-EPI)AfAm >90 (>60 ml/min/1.73 sqM) 08/10/18 22:52 Est GFR (CKD-EPI)NonAf >90 (>60 ml/min/1.73 sqM) 08/10/18 22:52 Glucose 92 mg/dL (74-99) 08/10/18 22:52 Calcium 9.1 mg/dL (8.4-10.2) 08/10/18 22:52 HCG, Qual Not Detected 08/10/18 22:52 CSF Tube Number 4 08/11/18 02:04 CSF Volume 4.0 08/11/18 02:04 CSF Appearance Clear 08/11/18 02:04 CSF Color Colorless 08/11/18 02:04 CSF RBC 1 u/L (0-10) 08/11/18 02:04 CSF Tot Nucleated Cells 2 u/L (0-5) 08/11/18 02:04 CSF Glucose 52 mg/dL (40-70) 08/11/18 02:04 CSF Total Protein 39 mg/dL (12-60) 08/11/18 02:04 Microbiology 08/11/18 02:04 Cerebral Spinal Fluid CSF Gram Stain - Preliminary Assessment and Plan (1) Intractable headache Current Visit: Yes Status: Acute Code(s): R51 - HEADACHE SNOMED Code(s): 77938048 (2) Vision changes Current Visit: Yes Status: Acute Code(s): H53.9 - UNSPECIFIED VISUAL DISTURBANCE SNOMED Code(s): 429151255 (3) Morbid obesity with BMI of 40.0-44.9, adult Current Visit: No Status: Chronic Code(s): E66.01 - MORBID (SEVERE) OBESITY DUE TO EXCESS CALORIES; Z68.41 - BODY MASS INDEX (BMI) 40.0-44.9, ADULT SNOMED Code(s): 218777502 (4) Neck pain Current Visit: Yes Status: Acute Code(s): M54.2 - CERVICALGIA SNOMED Code(s): 74209038 (5) Rash Narrative/Plan: 38-year-old woman who has a history of multiple medical troubles as related that includes some chronic headache, chronic skin condition, bipolar disorder, recently diagnosed hepatitis C. Has not been emergency center with the difficulties with some increasing headache and some neck pain. After her most recent ER visit she was given some cyclobenzaprine after which she's had some difficulties with muscle spasm in her legs, diplopia and some worsening rash. I'm concerned that she is having a reaction from the cyclobenzaprine and should not be given further doses. The patient did have lumbar puncture performed the fluid is completely normal and there is no evidence of any underlying central nervous system infection. The patient's opening pressure however was elevated and there are plans for her to move to a facility with neurology and potential neurosurgical evaluation if needed because elevated opening pressure. She does have obesity and pseudotumor cerebri is being considered. Of note she has not had significant relief of her headache after lumbar puncture despite removing some fluid but has had an excellent response to some morphine therapy. This is concerning with her history of recent drug rehab stay. After neurology evaluation may benefit from Benadryl. Current Visit: Yes Status: Acute Code(s): R21 - RASH AND OTHER NONSPECIFIC SKIN ERUPTION SNOMED Code(s): 235501294
[2018-08-11] MEDS ORDERED: diphenhydrAMINE 50 MG/ML 1 ML VIAL IVP PRN (14:29)
== END 2018-08-11 15:41 | disposition short-term general hospital (02) | DRG 103 ==
LOC: EC 19:15 → 3NMEDONC 08-11 04:13
PROVIDERS: ADMIT Internal Medicine; ATTEND Internal Medicine
PROC: 009U3ZX Drainage of Spinal Canal, Percutaneous Approach, Diagnostic (ICD-10-PCS; principal; 2018-08-11)
DX: R51 Headache (principal); E87.1 Hypo-osmolality and hyponatremia; Z68.41 Body mass index [BMI] 40.0-44.9, adult; E66.01 Morbid (severe) obesity due to excess calories; H53.2 Diplopia; B19.20 Unspecified viral hepatitis C without hepatic coma; F17.200 Nicotine dependence, unspecified, uncomplicated; F31.9 Bipolar disorder, unspecified; F41.9 Anxiety disorder, unspecified; J45.909 Unspecified asthma, uncomplicated; L40.9 Psoriasis, unspecified; R21 Rash and other nonspecific skin eruption; R50.9 Fever, unspecified; Z86.711 Personal history of pulmonary embolism; Z98.51 Tubal ligation status; Z83.3 Family history of diabetes mellitus
CPT/HCPCS: 36415; 62270; 70460; 80048; 82945; 84157; 84703; 85025; 87070; 87205; 89050; 96374; 96375; 96376; 99285

== ENCOUNTER 2018-10-29 17:10 | Emergency (ER) | payer OTHER ==
[2018-10-29 17:27] VITALS: BP 151/94; PULSE 77; RESP 18; TEMP 99.3
--- NOTE | 2018-10-29 18:14 | ED ---
General Adult HPI - General Chief complaint: Skin/Abscess/Foreign Body Stated complaint: RASH ON NECK AND BACK Time Seen by Provider: 10/29/18 17:54 Source: patient Mode of arrival: ambulatory Limitations: no limitations - History of Present Illness Initial comments: Patient is a 38-year-old female with history of lupus and psoriasis is presenting to emergency Department with chief complaint of lump on neck and and rash. Patient reports she noticed a rash yesterday that initially developed on the trunk and spread to upper and lower shoulders. Patient reports the rash is itchy. Patient reports she developed intermittent, acute lupus exacerbations. Patient reports she recently started seeing a machine setter and repairer. Patient is not on any medication for chronic management of lupus. Patient reports the "lump" in the back and neck is started yesterday and has gradually increased. Patient reports pain in the region with palpation. Patient denies taking medication to alleviate the symptoms. Patient reports she was recently started on amoxicillin by her primary care for possible respiratory infection. Patient denies fevers night sweats or chills. Patient also reports generalized arthralgias. She does report a mild headache but denies any visual disturbances. Patient denies any other symptoms. - Related Data Previous Rx's Medication Instructions Recorded Cephalexin [Keflex] 500 mg PO Q6HR #20 cap 10/29/18 Allergies Allergy/AdvReac Type Severity Reaction Status Date / Time No Known Allergies Allergy Verified 10/29/18 17:27 Review of Systems ROS Statement: Those systems with pertinent positive or pertinent negative responses have been documented in the HPI. ROS Other: All systems not noted in ROS Statement are negative. Past Medical History Past Medical History: Asthma, Pulmonary Embolus (PE), Skin Disorder Additional Past Medical History / Comment(s): brochitis Lupus anemia, chronic cellulitis-neck/back, HPV, bipolar disorder, hep C History of Any Multi-Drug Resistant Organisms: None Reported Past Surgical History: Section, Tubal Ligation Additional Past Surgical History / Comment(s): lupus, x3 c-sections Additional Past Anesthesia/Blood Transfusion Reaction / Comment(s): pt has not had transfusion. Past Psychological History: Anxiety, Bipolar, Depression Smoking Status: Former smoker Past Alcohol Use History: None Reported Past Drug Use History: Marijuana - Past Family History Mother Family Medical History: Diabetes Mellitus Additional Family Medical History / Comment(s): lupus, bipolar, drug dependency. Father Additional Family Medical History / Comment(s): "heart problems" General Exam Limitations: no limitations General appearance: alert, in no apparent distress, obese Head exam: Present: atraumatic, normocephalic, normal inspection. Absent: other (No malar rash noted) Eye exam: Present: normal appearance, PERRL, EOMI Pupils: Present: normal accommodation ENT exam: Present: normal exam, normal oropharynx (No lesions noted), mucous membranes moist, TM's normal bilaterally, normal external ear exam Neck exam: Present: normal inspection, full ROM. Absent: tenderness (Soft tissue swelling near the cervical prominence with mild erythema in the region. No induration.), meningismus, lymphadenopathy, other (Negative Kernig sign. Negative Brudzinski.) Respiratory exam: Present: normal lung sounds bilaterally Cardiovascular Exam: Present: regular rate, normal rhythm, normal heart sounds Extremities exam: Present: normal inspection, full ROM, normal capillary refill Back exam: Present: normal inspection, full ROM Neurological exam: Present: alert, oriented X3 Psychiatric exam: Present: normal affect, normal mood Skin exam: Present: warm, intact, normal color Course Vital Signs 10/29/18 17:24 Temperature 99.3 F Pulse Rate 77 Respiratory 18 Rate Blood Pressure 151/94 O2 Sat by Pulse 98 Oximetry Medical Decision Making - Medical Decision Making patient is a 38-year-old female with history of lupus and psoriasis is presenting to the emergency department with a chief complaint of a rash and a lump on her neck. Patient reports generalized arthralgias and a macular/scaly rash that does itch. Patient denies any fevers. Patient does report intermittent lupus exacerbations throughout the year. Butterfly malar rash not detected. I suspect the patient to have developed a lupus flareup and will be treated with Solu-Medrol. I suspect the swelling near the cervical prominence is a cellulitis infection. There is erythema and tenderness on palpation. No induration. I suspect an abscess in the region. Patient will be treated with Keflex. No focal deficits, fever, negative Brudzinski, negative Kernig sign. I have low suspicion for meningitis. Patient is already on prednisone that was prescribed to her by her primary care patient is only taken a single dose on the 20 mg prednisone and has 4 tablets left. Strict return parameters were thoroughly discussed with patient was understanding and agreeable. Patient reports she has an appointment to see a machine setter and repairer. Case discussed with physician. - Lab Data Result diagrams: 10/29/18 18:59 10/29/18 18:59 Lab Results 10/29/18 10/29/18 10/29/18 Range/Units 18:59 18:59 18:59 WBC 9.2 (3.8-10.6) k/uL RBC 4.47 (3.80-5.40) m/uL Hgb 9.7 L (11.4-16.0) gm/dL Hct 31.2 L (34.0-46.0) % MCV 69.8 L (80.0-100.0) fL MCH 21.8 L (25.0-35.0) pg MCHC 31.2 (31.0-37.0) g/dL RDW 16.8 H (11.5-15.5) % Plt Count 470 H (150-450) k/uL Neutrophils % 90 % Lymphocytes % 7 % Monocytes % 1 % Eosinophils % 1 % Basophils % 0 % Neutrophils # 8.3 H (1.3-7.7) k/uL Lymphocytes # 0.7 L (1.0-4.8) k/uL Monocytes # 0.1 (0-1.0) k/uL Eosinophils # 0.1 (0-0.7) k/uL Basophils # 0.0 (0-0.2) k/uL Hypochromasia Moderate Anisocytosis Slight Microcytosis Marked Sodium 139 (137-145) mmol/L Potassium 4.0 (3.5-5.1) mmol/L Chloride 100 (98-107) mmol/L Carbon Dioxide 30 (22-30) mmol/L Anion Gap 9 mmol/L BUN 8 (7-17) mg/dL Creatinine 0.64 (0.52-1.04) mg/dL Est GFR (CKD-EPI)AfAm >90 (>60 ml/min/1.73 sqM) Est GFR (CKD-EPI)NonAf >90 (>60 ml/min/1.73 sqM) Glucose 133 H (74-99) mg/dL Calcium 9.3 (8.4-10.2) mg/dL Total Bilirubin 0.3 (0.2-1.3) mg/dL AST 22 (14-36) U/L ALT 16 (9-52) U/L Alkaline Phosphatase 67 (38-126) U/L Total Protein 7.1 (6.3-8.2) g/dL Albumin 4.0 (3.5-5.0) g/dL Urine Color Yellow Urine Appearance Clear (Clear) Urine pH 5.5 (5.0-8.0) Ur Specific [place] 1.013 (1.001-1.035) Urine Protein Negative (Negative) Urine Glucose (UA) Negative (Negative) Urine Ketones Negative (Negative) Urine Blood Negative (Negative) Urine Nitrite Negative (Negative) Urine Bilirubin Negative (Negative) Urine Urobilinogen <2.0 (<2.0) mg/dL Ur Leukocyte Esterase Negative (Negative) Disposition Clinical Impression: Exacerbation of systemic lupus Disposition: HOME SELF-CARE Condition: Stable Instructions (If sedation given, give patient instructions): Lupus Erythematosus (DC) Prescriptions: Cephalexin [Keflex] 500 mg PO Q6HR #20 cap Is patient prescribed a controlled substance at d/c from ED?: No Referrals: [facility] [Primary Care Provider] - 1-2 days Time of Disposition: 19:32
[2018-10-29 19:06] LABS: Anisocytosis Slight; Basophils % (A) 0 %; Eosinophils # (A) 0.1 k/uL (0-0.7); Eosinophils % (A) 1 %; HCT 31.2 % (34.0-46.0); HGB 9.7 gm/dL (11.4-16.0); Hypochromasia Moderate; Lymphocytes # (A) 0.7 k/uL (1.0-4.8); Lymphocytes % (A) 7 %; MCH 21.8 pg (25.0-35.0); MCHC 31.2 g/dL (31.0-37.0); MCV 69.8 fL (80.0-100.0); Mean Platelet Volume 6.5; Microcytosis Marked; Monocytes # (A) 0.1 k/uL (0-1.0); Monocytes % (A) 1 %; Neutrophils # (A) 8.3 k/uL (1.3-7.7); Neutrophils % (A) 90 %; Platelet Count 470 k/uL (150-450); RBC 4.47 m/uL (3.80-5.40); RDW 16.8 % (11.5-15.5); WBC 9.2 k/uL (3.8-10.6)
[2018-10-29 19:09] LABS: Appearance,Urine Clear (Clear); Bilirubin,Urine Negative (Negative); Blood,Urine Negative (Negative); Color,Urine Yellow; Glucose,Urine (UA) Negative (Negative); Ketones,Urine Negative (Negative); Leukocyte Esterase,Urine Negative (Negative); Nitrite,Urine Negative (Negative); PH, Urine 5.5 (5.0-8.0); Protein,Urine Negative (Negative); Specific Gravity,Urine 1.013 (1.001-1.035); Urobilinogen,Urine <2.0 mg/dL (<2.0)
[2018-10-29 19:13] LABS: ALT 16 U/L (9-52); AST 22 U/L (14-36); African American GFR (CKD) >90 (>60 ml/min/1.73 sqM); Alkaline Phosphatase 67 U/L (38-126); Anion Gap 9 mmol/L; Blood Urea Nitrogen 8 mg/dL (7-17); Calcium 9.3 mg/dL (8.4-10.2); Carbon Dioxide 30 mmol/L (22-30); Chloride 100 mmol/L (98-107); Glucose 133 mg/dL (74-99); Sodium 139 mmol/L (137-145); Total Bilirubin 0.3 mg/dL (0.2-1.3); Total Protein 7.1 g/dL (6.3-8.2)
[2018-10-29] MEDS ORDERED: methylPREDNISolone SOD SUCCI 125 MG/2 ML VIAL IM ONE (19:32)
== END 2018-10-29 19:43 | disposition home or self-care (01) ==
LOC: EC 17:10
DX: M32.9 Systemic lupus erythematosus, unspecified (principal); Z87.891 Personal history of nicotine dependence; Z98.890 Other specified postprocedural states; Z84.89 Family history of other specified conditions
CPT/HCPCS: 36415; 80053; 85025; 81003; 99283; 96372; J2930

== ENCOUNTER 2019-01-17 09:36 | Emergency (ER) | payer OTHER ==
[2019-01-17 09:55] VITALS: BP 124/85; PULSE 76; RESP 16; TEMP 97.6
[2019-01-17] MEDS ORDERED: MORPHINE SULFATE 4 MG/ML SYRINGE IV STA (10:06)
[2019-01-17] MEDS ORDERED: SODIUM CHLORIDE 0.9% 1,000 ML IV STA ×2 (10:06)
[2019-01-17] MEDS ORDERED: KETOROLAC 30 MG/ML 1 ML VIAL IVP STA (10:06)
[2019-01-17] MEDS ORDERED: ORPHENADRINE 30 MG/ML 2 ML VIAL IVP STA (10:10)
--- NOTE | 2019-01-17 10:34 | ED ---
Back Pain HPI - General Chief Complaint: Back Pain/Injury Stated Complaint: Back pain Time Seen by Provider: 01/17/19 09:57 Source: patient, RN notes reviewed, old records reviewed Limitations: no limitations - History of Present Illness Initial Comments: This Patient is a 38-year-old female presents raise her arm today with 2 days of right-sided lower back pain. She also complains of dark urine, and decreased urine output. Patient's concern for possible she with her kidney. She denies any fevers or chills nausea or vomiting. She reports the pain seemed to be improved with muslce cream. Patient denies saddle anesthesias. She denies any radiation of the leg. Patient states that she has had an no fevers or chills. She denies any falls or trauma. - Related Data Previous Rx's Medication Instructions Recorded Cephalexin [Keflex] 500 mg PO Q6HR #20 cap 10/29/18 Cephalexin [Keflex] 500 mg PO Q8HR #21 cap 01/17/19 Cyclobenzaprine [Flexeril] 10 mg PO TID #12 tab 01/17/19 Ibuprofen 600 mg PO TID #12 tablet 01/17/19 Allergies Allergy/AdvReac Type Severity Reaction Status Date / Time No Known Allergies Allergy Verified 01/17/19 09:55 Review of Systems ROS Statement: Those systems with pertinent positive or pertinent negative responses have been documented in the HPI. ROS Other: All systems not noted in ROS Statement are negative. Past Medical History Past Medical History: Asthma, Pulmonary Embolus (PE), Skin Disorder Additional Past Medical History / Comment(s): brochitis Lupus anemia, chronic cellulitis-neck/back, HPV, bipolar disorder, hep C History of Any Multi-Drug Resistant Organisms: None Reported Past Surgical History: Section, Tubal Ligation Additional Past Surgical History / Comment(s): lupus, x3 c-sections Additional Past Anesthesia/Blood Transfusion Reaction / Comment(s): pt has not had transfusion. Past Psychological History: Anxiety, Bipolar, Depression Smoking Status: Former smoker Past Alcohol Use History: None Reported Past Drug Use History: Marijuana - Past Family History Mother Family Medical History: Diabetes Mellitus Additional Family Medical History / Comment(s): lupus, bipolar, drug dependency. Father Additional Family Medical History / Comment(s): "heart problems" General Exam - General Exam Comments Initial Comments: Pleasant 38-year-old female. Alert and oriented. No distress. Limitations: no limitations General appearance: alert, in no apparent distress Head exam: Present: atraumatic, normocephalic, normal inspection Eye exam: Present: normal appearance ENT exam: Present: normal exam, mucous membranes moist Neck exam: Present: normal inspection Respiratory exam: Present: normal lung sounds bilaterally. Absent: respiratory distress, wheezes, rales, rhonchi, stridor Cardiovascular Exam: Present: regular rate, normal rhythm, normal heart sounds. Absent: systolic murmur, diastolic murmur, rubs, gallop, clicks GI/Abdominal exam: Present: soft, normal bowel sounds. Absent: distended, tenderness, guarding, rebound, rigid Extremities exam: Present: normal inspection, full ROM, normal capillary refill, other (chest tenderness over the mid thoracic lumbar spine.). Absent: tenderness, pedal edema, joint swelling, calf tenderness Back exam: Present: normal inspection Neurological exam: Present: alert, oriented X3, CN II-XII intact Psychiatric exam: Present: normal affect, normal mood Skin exam: Present: warm, dry, intact, normal color. Absent: rash Course Vital Signs 01/17/19 09:53 Temperature 97.6 F Pulse Rate 76 Respiratory 16 Rate Blood Pressure 124/85 O2 Sat by Pulse 100 Oximetry Medical Decision Making - Medical Decision Making 38-year-old female presents emergency department today for chief complaint of b ack pain. Worse with certain movements. She is Patient reports that she slept, but her mattress Yolanda should have improvement. He also complained of having some dark urine was concerned for possibility of it she with her kidney. Patient's labwork was reviewed. She is have a mild urinary tract infection. Urine culture will be completed. Kidney function within normal limits. KUB shows unremarkable bowel gas pattern. Patient at this time though be discharged with a [facility] a short course of pain medication. Discussed appropriate follow-up with primary care doctor. Questions were answered. - Lab Data Result diagrams: 01/17/19 10:22 01/17/19 10:22 Lab Results 01/17/19 01/17/19 01/17/19 Range/Units 10:22 10:22 10:22 WBC 5.3 (3.8-10.6) k/uL RBC 4.53 (3.80-5.40) m/uL Hgb 10.1 L (11.4-16.0) gm/dL Hct 33.5 L (34.0-46.0) % MCV 74.0 L (80.0-100.0) fL MCH 22.3 L (25.0-35.0) pg MCHC 30.2 L (31.0-37.0) g/dL RDW 16.2 H (11.5-15.5) % Plt Count 477 H (150-450) k/uL Neutrophils % 68 % Lymphocytes % 22 % Monocytes % 3 % Eosinophils % 5 % Basophils % 0 % Neutrophils # 3.6 (1.3-7.7) k/uL Lymphocytes # 1.2 (1.0-4.8) k/uL Monocytes # 0.2 (0-1.0) k/uL Eosinophils # 0.3 (0-0.7) k/uL Basophils # 0.0 (0-0.2) k/uL Hypochromasia Marked Anisocytosis Slight Microcytosis Slight Sodium 140 (137-145) mmol/L Potassium 4.0 (3.5-5.1) mmol/L Chloride 103 (98-107) mmol/L Carbon Dioxide 28 (22-30) mmol/L Anion Gap 9 mmol/L BUN 8 (7-17) mg/dL Creatinine 0.71 (0.52-1.04) mg/dL Est GFR (CKD-EPI)AfAm >90 (>60 ml/min/1.73 sqM) Est GFR (CKD-EPI)NonAf >90 (>60 ml/min/1.73 sqM) Glucose 138 H (74-99) mg/dL Calcium 9.0 (8.4-10.2) mg/dL Total Bilirubin 0.4 (0.2-1.3) mg/dL AST 23 (14-36) U/L ALT 28 (9-52) U/L Alkaline Phosphatase 69 (38-126) U/L C-Reactive Protein 17.7 H (<10.0) mg/L Total Protein 6.7 (6.3-8.2) g/dL Albumin 3.7 (3.5-5.0) g/dL Lipase 42 (23-300) U/L Urine Color Yellow Urine Appearance Cloudy H (Clear) Urine pH 6.0 (5.0-8.0) Ur Specific [place] 1.021 (1.001-1.035) Urine Protein Trace H (Negative) Urine Glucose (UA) Negative (Negative) Urine Ketones Negative (Negative) Urine Blood Small H (Negative) Urine Nitrite Negative (Negative) Urine Bilirubin Negative (Negative) Urine Urobilinogen <2.0 (<2.0) mg/dL Ur Leukocyte Esterase Large H (Negative) Urine RBC 2 (0-5) /hpf Urine WBC 18 H (0-5) /hpf Ur Squamous Epith Cells 19 H (0-4) /hpf Urine Bacteria Occasional H (None) /hpf Urine Mucus Many H (None) /hpf Urine Yeast (Budding) Few H (None) /hpf - Radiology Data Radiology results: report reviewed KUB show nonspecific abdomen. Disposition Clinical Impression: UTI (urinary tract infection), Musculoskeletal back pain Disposition: HOME SELF-CARE Condition: Good Instructions (If sedation given, give patient instructions): Acute Low Back Pain (ED) Additional Instructions: Patient has a follow-up with your primary care physician. Take antibiotics as prescribed. Return to emergency department if any alarming signs or symptoms occur. Prescriptions: Cyclobenzaprine [Flexeril] 10 mg PO TID #12 tab Ibuprofen 600 mg PO TID #12 tablet Cephalexin [Keflex] 500 mg PO Q8HR #21 cap Is patient prescribed a controlled substance at d/c from ED?: No Referrals: [facility] [Primary Care Provider] - 1-2 days Time of Disposition: 12:22
[2019-01-17 10:44] LABS: Anisocytosis Slight; Basophils % (A) 0 %; Eosinophils # (A) 0.3 k/uL (0-0.7); Eosinophils % (A) 5 %; HCT 33.5 % (34.0-46.0); HGB 10.1 gm/dL (11.4-16.0); Hypochromasia Marked; Lymphocytes # (A) 1.2 k/uL (1.0-4.8); Lymphocytes % (A) 22 %; MCH 22.3 pg (25.0-35.0); MCHC 30.2 g/dL (31.0-37.0); Mean Platelet Volume 5.5; Microcytosis Slight; Monocytes # (A) 0.2 k/uL (0-1.0); Monocytes % (A) 3 %; Neutrophils # (A) 3.6 k/uL (1.3-7.7); Neutrophils % (A) 68 %; Platelet Count 477 k/uL (150-450); RBC 4.53 m/uL (3.80-5.40); RDW 16.2 % (11.5-15.5); WBC 5.3 k/uL (3.8-10.6)
[2019-01-17 10:50] LABS: Appearance,Urine Cloudy (Clear); Bacteria,Urine Occasional /hpf; Bilirubin,Urine Negative (Negative); Blood,Urine Small (Negative); Budding Yeast,Urine Few /hpf; Color,Urine Yellow; Glucose,Urine (UA) Negative (Negative); Ketones,Urine Negative (Negative); Leukocyte Esterase,Urine Large (Negative); Mucus,Urine Many /hpf; Nitrite,Urine Negative (Negative); Protein,Urine Trace (Negative); RBC,Urine 2 /hpf (0-5); Specific Gravity,Urine 1.021 (1.001-1.035); Squamous Epithelial Cell,Urine 19 /hpf (0-4); Urobilinogen,Urine <2.0 mg/dL (<2.0); WBC,Urine 18 /hpf (0-5)
[2019-01-17 10:52] LABS: ALT 28 U/L (9-52); AST 23 U/L (14-36); African American GFR (CKD) >90 (>60 ml/min/1.73 sqM); Albumin 3.7 g/dL (3.5-5.0); Alkaline Phosphatase 69 U/L (38-126); Anion Gap 9 mmol/L; Blood Urea Nitrogen 8 mg/dL (7-17); Carbon Dioxide 28 mmol/L (22-30); Chloride 103 mmol/L (98-107); Glucose 138 mg/dL (74-99); Non-African American GFR(CKD) >90 (>60 ml/min/1.73 sqM); Sodium 140 mmol/L (137-145); Total Bilirubin 0.4 mg/dL (0.2-1.3); Total Protein 6.7 g/dL (6.3-8.2)
--- NOTE | 2019-01-17 10:53 | XR ---
EXAMINATION TYPE: XR KUB DATE OF EXAM: 01/17/2019 COMPARISON: 07/21/2014 HISTORY: Pain TECHNIQUE: One view abdominal series FINDINGS: The osseous structures are intact. The bowel gas pattern is nonspecific. Lung bases are clear. Post surgical change in the pelvis. Bone island overlying the right femur. IMPRESSION: 1. Nonspecific abdomen.
[2019-01-17 11:25] LABS: C Reactive Protein 17.7 mg/L (<10.0)
[2019-01-17] MEDS ORDERED: ACET/COD 300 MG/30 MG STARTER PACK 6 TAB BTL PO STA (12:23)
== END 2019-01-17 13:09 | disposition home or self-care (01) ==
LOC: EC 09:36
DX: N39.0 Urinary tract infection, site not specified (principal); M54.5 Low back pain; Z87.891 Personal history of nicotine dependence
CPT/HCPCS: 36415; 80053; 83690; 85025; 86140; 81001; 74018; 99284; 96374; 96375 ×2; 96361 ×3; J2270; J2360; J1885

== ENCOUNTER 2019-09-30 19:20 | Emergency (ER) | payer OTHER ==
[2019-09-30 19:23] VITALS: BP 130/60; PULSE 88; RESP 18; TEMP 98.8
[2019-09-30] MEDS ORDERED: CEPHALEXIN 500MG STARTER PACK 4 CAP BTL PO STA (20:14)
[2019-09-30] MEDS ORDERED: predniSONE 20 MG TAB PO STA (20:14)
--- NOTE | 2019-09-30 20:16 | ED ---
General Adult HPI - General Chief complaint: Skin/Abscess/Foreign Body Stated complaint: Poss Cellulitis on Back Time Seen by Provider: 09/30/19 19:39 Source: patient, RN notes reviewed Mode of arrival: ambulatory Limitations: no limitations - History of Present Illness Initial comments: 39-year-old female with a past medical history of lupus, chronic cellulitis of the back, psoriasis presents to the emergency department for a chief complaint of redness to her back. Patient states she feels like her cellulitis has returned. States it is in the center of her back and is burning in nature. States it is more red than the rest of her back. Patient also reports she has been trying to get into her doctor to have a Medrol Dosepak for her psoriasis but has been unable to do so. She denies fevers or chills. She states this just started yesterday. She states antibiotics generally help.Patient has no other complaints at this time including shortness of breath, chest pain, abdominal pain, nausea or vomiting, headache, or visual changes. - Related Data Previous Rx's Medication Instructions Recorded Cephalexin [Keflex] 500 mg PO Q6HR #20 cap 10/29/18 Cephalexin [Keflex] 500 mg PO Q8HR #21 cap 01/17/19 Cyclobenzaprine [Flexeril] 10 mg PO TID #12 tab 01/17/19 Ibuprofen 600 mg PO TID #12 tablet 01/17/19 Cephalexin [Keflex] 500 mg PO Q6H #40 cap 09/30/19 methylPREDNISolone Dose Pack 4 mg PO DIRECTED #21 package 09/30/19 [Medrol Dose Pack] Allergies Allergy/AdvReac Type Severity Reaction Status Date / Time Opioids - Morphine Analogues Allergy Unknown Verified 09/30/19 19:23 Review of Systems ROS Statement: Those systems with pertinent positive or pertinent negative responses have been documented in the HPI. ROS Other: All systems not noted in ROS Statement are negative. Past Medical History Past Medical History: Asthma, Pulmonary Embolus (PE), Skin Disorder Additional Past Medical History / Comment(s): brochitis Lupus anemia, chronic cellulitis-neck/back, HPV, bipolar disorder, hep C History of Any Multi-Drug Resistant Organisms: None Reported Past Surgical History: Section, Tubal Ligation Additional Past Surgical History / Comment(s): lupus, x3 c-sections Additional Past Anesthesia/Blood Transfusion Reaction / Comment(s): pt has not had transfusion. Past Psychological History: Anxiety, Bipolar, Depression Smoking Status: Vaper Past Alcohol Use History: None Reported Past Drug Use History: Marijuana - Past Family History Mother Family Medical History: Diabetes Mellitus Additional Family Medical History / Comment(s): lupus, bipolar, drug dependency. Father Additional Family Medical History / Comment(s): "heart problems" General Exam Limitations: no limitations General appearance: alert, in no apparent distress Head exam: Present: atraumatic Eye exam: Present: normal appearance, PERRL, EOMI. Absent: scleral icterus, conjunctival injection, periorbital swelling ENT exam: Present: normal exam, mucous membranes moist Neck exam: Present: normal inspection. Absent: tenderness, meningismus, lympha denopathy Respiratory exam: Present: normal lung sounds bilaterally. Absent: respiratory distress, wheezes, rales, rhonchi, stridor Cardiovascular Exam: Present: regular rate, normal rhythm, normal heart sounds. Absent: systolic murmur, diastolic murmur, rubs, gallop, clicks Back exam: Present: other (there is a 10 cm x 10 cm area patient's mid back that is slightly erythematous possibly consistent with cellulitis. There is no abscess.) Course Vital Signs 09/30/19 19:21 Temperature 98.8 F Pulse Rate 88 Respiratory 18 Rate Blood Pressure 130/60 O2 Sat by Pulse 97 Oximetry Medical Decision Making - Medical Decision Making patient was treated with Keflex for possible cellulitis. I recommended monitoring and returning if this worsens. Recommended she follow up with primary care or dermatology. Patient was also given a Medrol Dosepak per her request for her psoriasis stating this generally helps. Disposition Clinical Impression: Cellulitis Disposition: HOME SELF-CARE Condition: Good Instructions (If sedation given, give patient instructions): Cellulitis (ED) Additional Instructions: please take medications as directed. Please follow-up with your primary care doctor. if redness is spreading or youre getting fevers return to the emergency room. If you have any worsening symptoms return to the emergency room. Prescriptions: Cephalexin [Keflex] 500 mg PO Q6H #40 cap methylPREDNISolone Dose Pack [Medrol Dose Pack] 4 mg PO DIRECTED #21 package Is patient prescribed a controlled substance at d/c from ED?: No Referrals: [facility] [Primary Care Provider] - 1-2 days Time of Disposition: 20:14
== END 2019-09-30 20:20 | disposition home or self-care (01) ==
LOC: EC 19:20
DX: L03.312 Cellulitis of back [any part except buttock and flank] (principal); F17.290 Nicotine dependence, other tobacco product, uncomplicated; Z88.5 Allergy status to narcotic agent
CPT/HCPCS: 99282; J7512

== ENCOUNTER 2021-05-01 15:55 | Inpatient (IN) | payer MEDICAID, OTHER ==
--- NOTE | 2021-05-01 16:48 | ED ---
General Adult HPI - General Chief complaint: Psychiatric Symptoms Stated complaint: Mental health eval. Time Seen by Provider: 05/01/21 16:34 Source: patient Mode of arrival: ambulatory Limitations: no limitations - History of Present Illness Initial comments: Dictation was produced using [employer] dictation software. please excuse any grammatical, word or spelling errors. Chief Complaint: 41-year-old female presents to emergency Department for suicidal ideation and suicidal attempt History of Present Illness: Patient is a 41-year-old female she overdosed on heroin intentionally to kill herself. This overdose was witnessed by family she was given Narcan which reversed the heroin. She states that this happened approximately 2-1/2-3 hours ago. She denies any medical issues at this time. She states she's really sad because her personal changes. She states her kids got taken away from her. She feels like she has nothing left to live for. Denies any homicidal ideation. No visual or auditory hallucinations. The ROS documented in this emergency department record has been reviewed and confirmed by me. Those systems with pertinent positive or negative responses have been documented in the HPI. All other systems are other negative and/or noncontributory. PHYSICAL EXAM: General Impression: Alert and oriented x3, not in acute distress HEENT: Normocephalic atraumatic, extra-ocular movements intact, pupils equal and reactive to light bilaterally, mucous membranes moist. Cardiovascular: Heart regular rate and rhythm Chest: Able to complete full sentences, no retractions, no tachypnea Abdomen: abdomen soft, non-tender, non-distended, no organomegaly Musculoskeletal: Pulses present and equal in all extremities, no peripheral edema Motor: no focal deficits noted Neurological: CN II-XII grossly intact, no focal motor or sensory deficits noted Skin: Intact with no visualized rashes Psych: Tearful ED course: 41 y Old female presents emergency department for alleged heroin overdose in an attempt to kill herself signs upon arrival are within acceptable limits. Patient's well-appearing at bedside. She's not showing any signs of respiratory distress. She does not show any signs of lethargy. She is not sh owing signs of respiratory distress. Overdose attempt was proximately to and after 3 hours ago according to patient. Patient was observed in the emergency Department with no medical issues. Patient cleared for EPS evaluation. Patient was admitted to inpatient psychiatric unit. - Related Data Previous Rx's Medication Instructions Recorded Folic Acid 1 mg PO DAILY 30 Days tab 05/05/21 Lurasidone [Latuda] 20 mg PO DAILY 30 Days tab 05/05/21 Multivitamins, Thera [Multivitamin 1 each PO DAILY 30 Days tab 05/05/21 (formulary)] Nicotine 14Mg/24Hr Patch [Habitrol] 1 patch TRANSDERM DAILY 30 Days 05/05/21 patch Thiamine [Vitamin B-1] 100 mg PO DAILY 30 Days tab 05/05/21 busPIRone HCl [Buspar] 15 mg PO BID 30 Days tab 05/05/21 chlordiazePOXIDE HCl [Librium] 25 mg PO TID 3 Days #8 cap 05/05/21 traZODone HCL [Desyrel] 100 mg PO HS 30 Days tab 05/05/21 Allergies Allergy/AdvReac Type Severity Reaction Status Date / Time Opioids - Morphine Analogues Allergy Unknown Verified 05/02/21 02:28 Review of Systems ROS Statement: Those systems with pertinent positive or pertinent negative responses have been documented in the HPI. ROS Other: All systems not noted in ROS Statement are negative. Past Medical History Past Medical History: Asthma, Pulmonary Embolus (PE), Skin Disorder Additional Past Medical History / Comment(s): brochitis Lupus anemia, chronic cellulitis-neck/back, HPV, bipolar disorder, hep C History of Any Multi-Drug Resistant Organisms: None Reported Past Surgical History: Section, Tubal Ligation Additional Past Surgical History / Comment(s): lupus, x3 c-sections Additional Past Anesthesia/Blood Transfusion Reaction / Comment(s): pt has not had transfusion. Past Psychological History: Anxiety, Bipolar, Depression Smoking Status: Vaper Past Alcohol Use History: None Reported Past Drug Use History: Heroin, Marijuana - Past Family History Mother Family Medical History: Diabetes Mellitus Additional Family Medical History / Comment(s): lupus, bipolar, drug dependency. Father Additional Family Medical History / Comment(s): "heart problems" General Exam Limitations: no limitations Course Vital Signs 05/01/21 05/01/21 05/01/21 16:29 18:26 19:46 Temperature 97.9 F 97.9 F Pulse Rate 89 83 67 Respiratory 16 14 16 Rate Blood Pressure 129/81 118/77 123/77 O2 Sat by Pulse 99 98 100 Oximetry Medical Decision Making - Lab Data Result diagrams: 05/02/21 09:44 05/02/21 09:44 Lab Results 05/01/21 Range/Units 19:42 Coronavirus (PCR) Not Detected (Not Detectd) Disposition Clinical Impression: Suicide attempt Disposition: ADMITTED IP TO THIS HOSP Condition: Stable
--- NOTE | 2021-05-01 21:16 | XR ---
EXAMINATION TYPE: XR ankle complete LT DATE OF EXAM: 05/01/2021 8:57 PM INDICATION: Patient age:Female; 41 years old; Reason for study: fall; COMPARISON: None TECHNIQUE: The left ankle is imaged in AP lateral and oblique projections. FINDINGS: Calcification near the deltoid ligament consistent with remote injury. Plantar calcaneal sp urring noted. There is no evidence of acute osseous pathology. The joint spaces are well-preserved without evidenc e of subluxation or dislocation. Kager's fat pad is intact. Mild soft tissue swelling around the ankl e. No radiopaque foreign bodies are identified. IMPRESSION: 1. No evidence of acute fracture. 2. Subcutaneous swelling around the ankle likely secondary to underlying soft tissue injury.
[2021-05-01] MEDS ORDERED: MAGNESIUM HYDROXIDE 2,400 MG/10 ML CUP PO PRN (21:33)
[2021-05-01] MEDS ORDERED: MAG HYDROX/AL HYDROX/SIMETH 30 ML CUP PO PRN (21:33)
[2021-05-01] MEDS ORDERED: ACETAMINOPHEN TAB 325 MG TAB PO PRN (21:33)
[2021-05-01] MEDS ORDERED: HALOPERIDOL LACTATE 5 MG/ML 1 ML VIAL IM PRN (21:42)
[2021-05-01] MEDS: chlordiazePOXIDE 25 MG CAP PO SCH (22:38)
[2021-05-01] MEDS ORDERED: IBUPROFEN 600 MG TAB PO PRN (23:09)
[2021-05-02] MEDS: diazePAM 5 MG TAB PO SCH ×2 (00:58→09:01)
[2021-05-02] MEDS: IBUPROFEN 400 MG TAB PO PRN ×3 (02:00→18:00)
[2021-05-02] MEDS: LORazepam 1 MG TAB PO PRN ×5 (02:00→21:33)
[2021-05-02 02:27] VITALS: RESP 18
[2021-05-02] MEDS: THIAMINE 100 MG TAB PO SCH (08:49)
[2021-05-02] MEDS: FOLIC ACID 1 MG TAB PO SCH (08:49)
[2021-05-02] MEDS: MULTIVITAMINS, THERA 1 EACH TAB PO SCH (08:49)
[2021-05-02] MEDS: NICOTINE 14MG/24HR PATCH TRANSDERM SCH (08:49)
[2021-05-02] MEDS: chlordiazePOXIDE 25 MG CAP PO SCH ×3 (08:50→21:33)
[2021-05-02] MEDS: haloperidoL 5 MG TAB PO PRN (08:52)
[2021-05-02 10:18] LABS: Basophils % (A) 0 %; Eosinophils # (A) 0.3 k/uL (0-0.7); Eosinophils % (A) 6 %; HCT 35.9 % (34.0-46.0); HGB 11.2 gm/dL (11.4-16.0); Hypochromasia Moderate; Lymphocytes # (A) 1.5 k/uL (1.0-4.8); Lymphocytes % (A) 30 %; MCH 27.1 pg (25.0-35.0); MCHC 31.2 g/dL (31.0-37.0); MCV 86.8 fL (80.0-100.0); Mean Platelet Volume 6.9; Monocytes # (A) 0.2 k/uL (0-1.0); Monocytes % (A) 5 %; Neutrophils # (A) 2.8 k/uL (1.3-7.7); Neutrophils % (A) 56 %; Platelet Count 429 k/uL (150-450); RBC 4.14 m/uL (3.80-5.40); RDW 15.3 % (11.5-15.5)
[2021-05-02 10:35] LABS: ALT 10 U/L (4-34); AST 18 U/L (14-36); African American GFR (CKD) >90 (>60 ml/min/1.73 sqM); Albumin 3.3 g/dL (3.5-5.0); Alkaline Phosphatase 68 U/L (38-126); Anion Gap 2 mmol/L; Blood Urea Nitrogen 10 mg/dL (7-17); Calcium 8.8 mg/dL (8.4-10.2); Carbon Dioxide 28 mmol/L (22-30); Chloride 104 mmol/L (98-107); Glucose 103 mg/dL (74-99); Non-African American GFR(CKD) >90 (>60 ml/min/1.73 sqM); Potassium 4.6 mmol/L (3.5-5.1); Sodium 134 mmol/L (137-145); Total Bilirubin 0.5 mg/dL (0.2-1.3); Total Protein 6.7 g/dL (6.3-8.2)
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
[2021-05-02] MEDS: ONDANSETRON 4 MG TAB PO PRN (13:10)
[2021-05-02] MEDS: cloNIDine HCL 0.1 MG TAB PO PRN (13:10)
[2021-05-02 16:13] LABS: Chol/HDL Ratio 3.58 Ratio; LDL Cholesterol,Calculated 95.6 mg/dL (0.0-131.0)
[2021-05-02] MEDS ORDERED: traZODone HCL 50 MG TAB PO SCH (21:00)
[2021-05-02] MEDS: busPIRone HCl 10 MG TAB PO SCH (21:32)
[2021-05-03] MEDS: IBUPROFEN 400 MG TAB PO PRN ×2 (07:09→16:40)
[2021-05-03] MEDS: cloNIDine HCL 0.1 MG TAB PO PRN (07:09)
[2021-05-03] MEDS: LORazepam 1 MG TAB PO PRN ×3 (07:09→16:40)
[2021-05-03] MEDS: FOLIC ACID 1 MG TAB PO SCH (08:21)
[2021-05-03] MEDS: NICOTINE 14MG/24HR PATCH TRANSDERM SCH (08:21)
[2021-05-03] MEDS: MULTIVITAMINS, THERA 1 EACH TAB PO SCH (08:21)
[2021-05-03] MEDS: chlordiazePOXIDE 25 MG CAP PO SCH ×3 (08:21→20:40)
[2021-05-03] MEDS: LURASIDONE 20 MG TAB PO SCH (08:21)
[2021-05-03] MEDS: THIAMINE 100 MG TAB PO SCH (08:21)
[2021-05-03] MEDS: busPIRone HCl 10 MG TAB PO SCH (08:21)
[2021-05-03] MEDS: haloperidoL 5 MG TAB PO PRN ×2 (08:22→16:40)
[2021-05-03] MEDS ORDERED: LOPERAMIDE 2 MG CAP PO PRN (10:59)
--- NOTE | 2021-05-03 11:54 | P.PN ---
Progress Note - Text Progress Note Date: 05/03/21 Interval History: Patient was seen resting in bed and was directable and preferred to speak with lead technical writer in her room. The patient stresses that she is undergoing withdrawal. She reports that she would like to be placed on Suboxone. She expresses her disappointment with how she is "being treated here." She is currently endorsing suicidal ideation however is denying any homicidal ideation, intention, and/or plan. She is not reporting any auditory or visual hallucinations. She reports no paranoia or other delusions. The patient just states that "I want to be back on my medications so that I can go." She reports that she is having difficulty with sleep. Despite her desire to get off drugs, the patient expresses no desire to go to inpatient substance abuse rehabilitation at this time. Mental Status Exam: General Appearance: Patient appears to be stated age is alert, directable, and cooperative. Morbidly obese body habitus. Notable facial tattoos and multiple tattoos. Behavior: Patient is lying down in bed with minor psychomotor agitation. Speech: Patient's speech is fluent and nonpressured. Mood/Affect: Mood is "not feeling good." Affect is anxious and malaised. Suicidality/Homicidality: Patient endorses suicidal ideation however denies any homicidal ideation, intention, and/or plan. Perceptions: Patient denies any visual hallucinations and denies any auditory hallucinations Though content/process: There is no evidence of any delusional thought content and thought process is linear and goal-directed. Memory and concentration: AOX3, grossly intact for the purposes of this session Judgment and insight: Improving mildly Vital Signs Temp 98.9 F 05/03/21 07:11 Pulse 78 05/03/21 11:20 Resp 18 05/01/21 21:43 BP 146/60 05/03/21 11:20 Pulse Ox 97 05/03/21 07:11 Intake & Output 05/02/21 05/03/21 05/03/21 18:59 06:59 18:59 Weight 123.5 kg Laboratory Results - Last 24 Hours 05/02/21 05/02/21 09:44 09:[address] Glu mg/dL 99 Hemoglobin A1c 5.1 Triglycerides 102.00 Cholesterol 161.00 LDL Cholesterol, Calc 95.6 VLDL Cholesterol, Calc 20.40 HDL Cholesterol 45.00 Cholesterol/HDL Ratio 3.58 Assessment Bipolar 2 disorder, mixed episode Alcohol use disorder Opiate use disorder Plan: -Patient continues to meet criteria for inpatient psychiatric admission for symptom stabilization and safety. Patient has signed adult voluntary form and medication consent and was placed in patient's chart. -Medications: Start Trazodone 100 mg by mouth at bedtime for insomnia Increase BuSpar to 15 mg by mouth twice a day for anxiety Continue Latuda 20 mg by mouth daily for mood stabilization We will decrease Librium to 50 mg by mouth 3 times a day for acute alcohol withdrawal Continue CIWA protocol -When necessary Haldol for agitation/aggression. -NRT - nicotine patch -SW on board for discharge planning. Encouraged the patient to participate in milieu.
[2021-05-03 12:08] LABS: Appearance,Urine Cloudy (Clear); Bacteria,Urine Many /hpf; Bilirubin,Urine Negative (Negative); Blood,Urine Negative (Negative); Color,Urine Light Yellow; Glucose,Urine (UA) Negative (Negative); Ketones,Urine Negative (Negative); Leukocyte Esterase,Urine Trace (Negative); Mucus,Urine Few /hpf; Nitrite,Urine Positive (Negative); PH, Urine 7.5 (5.0-8.0); Protein,Urine Negative (Negative); RBC,Urine 2 /hpf (0-5); Squamous Epithelial Cell,Urine 2 /hpf (0-4); Urobilinogen,Urine <2.0 mg/dL (<2.0); WBC,Urine 7 /hpf (0-5)
[2021-05-03] MEDS: ONDANSETRON 4 MG TAB PO PRN (16:40)
--- NOTE | 2021-05-03 19:06 | CONS ---
CONSULTATION CHIEF COMPLAINT: Major depression and substance abuse. HISTORY OF PRESENT ILLNESS: This is another admission for this 41-year-old female. She does have a history of substance abuse. She has been on Suboxone. She has not been seen in the office since February. She apparently became depressed, suicidal, had been using narcotics and was withdrawing. REVIEW OF SYSTEMS: She denies any headaches, chest pain, shortness of breath, diarrhea, melena, urinary complaints, etc. She does have some crampy abdominal pain and she is slightly nauseated. Past medical history reveals that she is NOT ALLERGIC TO ANYTHING. Her medications when she was last seen included trazodone, albuterol, Suboxone, BuSpar and lithium. She does not smoke any longer and does not drink alcohol. PHYSICAL EXAMINATION: Blood pressure 140/88 with a pulse of 82 and regular, respirations of 18, and she is afebrile. In general she appeared to be sleepy and somewhat lethargic. Skin color was normal. Skin was dry. Head, ears, eyes, nose, mouth and throat were normal. Neck veins were not distended. Chest was clear. Cardiac exam demonstrated sinus rhythm with no murmurs or extra sounds. Abdomen was soft and nontender and there were no masses. Extremities were normal. Neurologically she seemed to be fairly well intact. IMPRESSION: 1. Major depression with suicidal thoughts. 2. Narcotic abuse. RECOMMENDATIONS: None at this time. Thank you. Respectfully, Rivera Tapia II, M.D. ELOISA / MINA: [id number] /
[2021-05-03 19:43] LABS: Urine Alcohol Negative (Negative); Urine Barbiturate Negative (Negative); Urine Cocaine Negative (Negative); Urine Methadone Negative (Negative); Urine Opiates Negative (Negative); Urine Phencyclidine Negative (Negative)
[2021-05-03] MEDS: traZODone HCL 100 MG TAB PO SCH (20:40)
[2021-05-03] MEDS: busPIRone HCl 5 MG TAB PO SCH (20:40)
[2021-05-04] MEDS: IBUPROFEN 400 MG TAB PO PRN ×3 (05:30→20:35)
[2021-05-04] MEDS: haloperidoL 5 MG TAB PO PRN ×2 (05:30→15:34)
[2021-05-04] MEDS: LORazepam 1 MG TAB PO PRN ×4 (05:30→20:33)
[2021-05-04] MEDS: busPIRone HCl 5 MG TAB PO SCH ×2 (08:39→20:32)
[2021-05-04] MEDS: chlordiazePOXIDE 25 MG CAP PO SCH ×3 (08:39→20:32)
[2021-05-04] MEDS: MULTIVITAMINS, THERA 1 EACH TAB PO SCH (08:39)
[2021-05-04] MEDS: FOLIC ACID 1 MG TAB PO SCH (08:39)
[2021-05-04] MEDS: THIAMINE 100 MG TAB PO SCH (08:39)
[2021-05-04] MEDS: LURASIDONE 20 MG TAB PO SCH (08:40)
[2021-05-04] MEDS: NICOTINE 14MG/24HR PATCH TRANSDERM SCH (08:55)
--- NOTE | 2021-05-04 11:11 | P.PN ---
Progress Note - Text Progress Note Date: 05/04/21 Interval History: Patient was seen resting in bed and was directable and preferred to speak with news writer in her room. The patient reports that she is feeling better. She states her withdrawal symptoms are beginning to decrease. She states that she continues to have some difficulty with sleep. She denies any suicidal or homicidal ideation, intention, and/or plan today. She denies any auditory or visual hallucinations. She reports no paranoia or other delusions. The patient expresses future orientation with the desire to be in a substance abuse/psychiatric care clinic upon discharge. Mental Status Exam: General Appearance: Patient appears to be stated age is alert, directable, and cooperative. Morbidly obese body habitus. Notable facial tattoos and multiple tattoos. Behavior: Patient is lying down in bed without any psychomotor agitation. Eye contact is appropriate. Speech: Patient's speech is fluent and nonpressured. Mood/Affect: Mood is "feeling better." Affect is constricted but euthymic. Suicidality/Homicidality: Patient denies any suicidal or homicidal ideation today. Perceptions: Patient denies any visual hallucinations and denies any auditory hallucinations Though content/process: There is no evidence of any delusional thought content and thought process is linear and goal-directed. Memory and concentration: AOX3, grossly intact for the purposes of this session Judgment and insight: Improving mildly Vital Signs Temp 97.3 F L 05/04/21 07:13 Pulse 78 05/04/21 07:13 Resp 18 05/01/21 21:43 BP 127/59 05/04/21 07:13 Pulse Ox 95 05/04/21 07:13 Laboratory Results - Last 24 Hours 05/03/21 05/03/21 11:10 11:10 Urine Color Light Yellow Urine Appearance Cloudy H Urine pH 7.5 Ur Specific [place] 1.010 Urine Protein Negative Urine Glucose (UA) Negative Urine Ketones Negative Urine Blood Negative Urine Nitrite Positive H Urine Bilirubin Negative Urine Urobilinogen <2.0 Ur Leukocyte Esterase Trace H Urine RBC 2 Urine WBC 7 H Ur Squamous Epith Cells 2 Urine Bacteria Many H Urine Mucus Few H Urine Opiates Screen Negative Urine Methadone Screen Negative Ur Propoxyphene Screen Negative Urine Barbiturates Negative Ur Phencyclidine Scrn Negative Ur Amphetamine Screen Negative U Benzodiazepines Scrn Positive A Urine Cocaine Screen Negative U Cannabinoids Screen Positive A Urine Alcohol Negative Assessment Bipolar 2 disorder, mixed episode Alcohol use disorder Opiate use disorder Plan: -Patient continues to meet criteria for inpatient psychiatric admission for symptom stabilization and safety. Patient has signed adult voluntary form and medication consent and was placed in patient's chart. -Medications: Increase trazodone to 200 mg by mouth at bedtime for insomnia Continue BuSpar 15 mg by mouth twice a day for anxiety Continue Latuda 20 mg by mouth daily for mood stabilization Continue Librium 50 mg by mouth 3 times a day for acute alcohol withdrawal Continue CIWA protocol -When necessary Haldol for agitation/aggression. -NRT - nicotine patch -SW on board for discharge planning. Encouraged the patient to participate in milieu.
[2021-05-04] MEDS: ONDANSETRON 4 MG TAB PO PRN (11:34)
[2021-05-04] MEDS: traZODone HCL 100 MG TAB PO SCH (20:32)
[2021-05-05] MEDS: LORazepam 1 MG TAB PO PRN (04:31)
[2021-05-05] MEDS: IBUPROFEN 400 MG TAB PO PRN (04:31)
[2021-05-05] MEDS: haloperidoL 5 MG TAB PO PRN (04:31)
[2021-05-05] MEDS: NICOTINE 14MG/24HR PATCH TRANSDERM SCH (08:29)
[2021-05-05] MEDS: chlordiazePOXIDE 25 MG CAP PO SCH (08:29)
[2021-05-05] MEDS: busPIRone HCl 5 MG TAB PO SCH (08:30)
[2021-05-05] MEDS: MULTIVITAMINS, THERA 1 EACH TAB PO SCH (08:30)
[2021-05-05] MEDS: THIAMINE 100 MG TAB PO SCH (08:30)
[2021-05-05] MEDS: FOLIC ACID 1 MG TAB PO SCH (08:30)
[2021-05-05] MEDS: LURASIDONE 20 MG TAB PO SCH (08:30)
[2021-05-05 08:32] VITALS: BP 125/60; PULSE 97; TEMP 97.5
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
== END 2021-05-05 12:25 | disposition home or self-care (01) | DRG 885 ==
LOC: EC 15:55 → 3MHU 21:18
PROVIDERS: ADMIT Psychiatry & Neurology Psychiatry; ATTEND Psychiatry & Neurology Psychiatry
DX: F31.60 Bipolar disorder, current episode mixed, unspecified (principal); F11.20 Opioid dependence, uncomplicated; F10.239 Alcohol dependence with withdrawal, unspecified; F41.9 Anxiety disorder, unspecified; G47.00 Insomnia, unspecified; J45.909 Unspecified asthma, uncomplicated; L40.9 Psoriasis, unspecified; E66.9 Obesity, unspecified; T40.1X2A Poisoning by heroin, intentional self-harm, initial encounter; Z79.899 Other long term (current) drug therapy; Z83.3 Family history of diabetes mellitus; Z86.711 Personal history of pulmonary embolism; Z20.822 Contact with and (suspected) exposure to COVID-19
CPT/HCPCS: 80053; 80061; 80306; 81001; 82075; 83036; 84443; 85025; 87635; 99285

== ENCOUNTER 2021-09-06 13:00 | Emergency (ER) | payer OTHER ==
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
[2021-09-06] MEDS ORDERED: KETOROLAC 15 MG/ML 1 ML VIAL IM STA (15:06)
[2021-09-06] MEDS ORDERED: ONDANSETRON ODT 4 MG TAB PO STA (15:13)
--- NOTE | 2021-09-06 16:08 | XR ---
Facial bones HISTORY: Trauma and pain 3 views of the facial bones Paranasal sinuses are well aerated. No air-fluid levels to suggest acute hemorrhage. Orbits appear in tact. Bone mineralization is normal. No evident displaced nasal bone fracture. Question some apical i rregularity of the right side of the nasal bone on the frontal view, findings may be due to superimpo sition of structures. Mastoid air cells appear well aerated. IMPRESSION: No acute abnormalities evident with certainty. Questionable cortical regularity as descri bed on the frontal view, correlate for point tenderness and consider alternate imaging as indicated f or better evaluation.
[2021-09-06 17:15] VITALS: BP 129/93; PULSE 70; RESP 18; TEMP 98.1
== END 2021-09-06 17:10 | disposition home or self-care (01) ==
LOC: EC 13:00
DX: S00.33XA Contusion of nose, initial encounter (principal); J45.909 Unspecified asthma, uncomplicated; F17.209 Nicotine dependence, unspecified, with unspecified nicotine-induced disorders; Z88.6 Allergy status to analgesic agent
CPT/HCPCS: 70150; 99284; 96372; J1885

== ENCOUNTER → 2022-04-28 | Outpatient (CLI) | payer OTHER ==
--- NOTE | 2022-04-28 08:26 | US ---
EXAMINATION TYPE: US liver DATE OF EXAM: 04/28/2022 COMPARISON: CT 2017 CLINICAL HISTORY: B18.2 Chronic viral hepatitis CB18.2 Chronic viral hepatitis. TECHNIQUE: Multiple sonographic images of the right upper quadrant are obtained. FINDINGS: EXAM MEASUREMENTS: Liver Length: 17.5 cm Gallbladder Wall: 0.2 cm CBD: 0.6 cm Right Kidney: 10.4 x 4.6 x 5.3 cm Pancreas: visualized portions wnl, limited by overlying midline bowel gas Liver: measures in upper limits of normal , increased echotexture with coarsened appearance. No phill picious masses or cystic structures. Gallbladder: wnl Evidence for sonographic Hurt's sign: no CBD: measures in upper limits of normal Right Kidney: wnl IMPRESSION: Hepatocellular disease without evidence for suspicious mass.
[2022-04-28 10:35] LABS: Basophils # (A) 0.03 X 10*3/uL (0.00-0.10); Basophils % (A) 0.5 %; Eosinophils # (A) 0.25 X 10*3/uL (0.04-0.35); HCT 37.7 % (37.2-46.3); HGB 11.7 g/dL (12.0-15.0); Immature Grans, Automated 0.2 %; Lymphocytes # (A) 1.77 X 10*3/uL (0.90-5.00); Lymphocytes % (A) 28.5 %; MCH 27.3 pg (27.0-32.0); MCV 88.1 fL (80.0-97.0); Mean Platelet Volume 9.1 fL (9.5-12.2); Monocytes % (A) 6.4 %; NRBC Per 100 WBC 0 /100 WBCS (0.0-0.0); Neutrophils # (A) 3.75 X 10*3/uL (1.80-7.70); Neutrophils % (A) 60.4 %; Platelet Count 353 X 10*3/uL (140-440); RBC 4.28 X 10*6/uL (4.10-5.20); RDW 14.2 % (11.5-14.5); WBC 6.21 X 10*3/uL (4.50-10.00)
[2022-04-28 10:54] LABS: African American GFR (CKD) 121.2 (60.0-200.0); Albumin 4.1 g/dL (3.8-4.9); Albumin/Globulin Ratio 1.33 (1.60-3.17); Anion Gap 7.3 mmol/L (10.00-18.00); BUN/Creat Ratio 9.75 Ratio (12.00-20.00); Calcium 9.1 mg/dL (8.7-10.3); Carbon Dioxide 30.6 mmol/L (20.0-27.5); Globulin 3.1 g/dL (1.6-3.3); Non-African American GFR(CKD) 104.5 (60.0-200.0); Potassium 4.3 mmol/L (3.5-5.5); Total Bilirubin 0.3 mg/dL (0.30-1.20); Total Protein 7.2 g/dL (6.2-8.2)
== END | disposition home or self-care (01) ==
LOC: RADUSWWP 07:50
PROVIDERS: ATTEND Internal Medicine Gastroenterology
DX: B18.2 Chronic viral hepatitis C (principal); K76.89 Other specified diseases of liver
CPT/HCPCS: 76705; 80053; 82105; 85025; 87522

== ENCOUNTER → 2022-06-14 | Outpatient (CLI) | payer OTHER | END | disposition home or self-care (01) | LOC: LABWHC1 12:50 | PROVIDERS: ATTEND Registered Nurse | DX: F31.12 Bipolar disorder, current episode manic without psychotic features, moderate (principal); F43.12 Post-traumatic stress disorder, chronic; F19.11 Other psychoactive substance abuse, in remission; R94.31 Abnormal electrocardiogram [ECG] [EKG] | CPT/HCPCS: 36415; 93005 ==

== ENCOUNTER 2022-08-24 11:36 | Emergency (ER) | payer OTHER ==
[2022-08-24 11:52] VITALS: RESP 18; TEMP 98.9
[2022-08-24] MEDS ORDERED: IPRATROPIUM 0.5 MG/2.5 ML NEBU INHALATION STA (12:14)
[2022-08-24] MEDS ORDERED: ALBUTEROL NEBULIZED 2.5 MG/3 ML INHALATION STA (12:14)
[2022-08-24] MEDS ORDERED: methylPREDNISolone SOD SUCCI 125 MG/2 ML VIAL IV STA (12:14)
[2022-08-24] MEDS ORDERED: FUROSEMIDE 10 MG/ML 2 ML VIAL IV ONE (12:15)
--- NOTE | 2022-08-24 12:20 | ED ---
General Adult HPI - General Chief complaint: Shortness of Breath Stated complaint: leg swelling,SOB Time Seen by Provider: 08/24/22 12:00 Source: patient, RN notes reviewed, old records reviewed Mode of arrival: ambulatory Limitations: no limitations - History of Present Illness Initial comments: This is a 42-year-old female who presents to the emergency department complaining of weight gain over the last month and shortness of breath. Patient states she has been a smoker up until about 2 months ago. Patient states she has noticed a little bit of a wheeze. Patient went to see her primary medical care doctor and they sent her to the hospital. Patient denies any fever chills or cough. Patient denies chest pain or palpitations. Patient denies abdominal pain or back pain patient denies any nausea vomiting or diarrhea. Patient has noticed a little bit of increased swelling to her legs - Related Data Home Medications Medication Instructions Recorded Confirmed FLUoxetine HCL [PROzac] 20 mg PO DAILY 08/03/22 08/03/22 Meloxicam [Mobic] 7.5 mg PO DAILY 08/03/22 08/03/22 Methadone HCl [Methadose] 145 mg PO DAILY 08/03/22 08/03/22 OLANZapine [ZyPREXA] 10 mg PO DAILY 08/03/22 08/03/22 lisinopriL [Zestril] 10 mg PO DAILY 08/03/22 08/03/22 Previous Rx's Medication Instructions Recorded busPIRone HCl [Buspar] 15 mg PO BID 30 Days tab 05/05/21 Azithromycin [Zithromax Tri-Jayme (3 500 mg PO DAILY 3 Days #3 tab 08/24/22 tabs)] predniSONE [Deltasone] 40 mg PO DAILY #8 tab 08/24/22 Allergies Allergy/AdvReac Type Severity Reaction Status Date / Time Opioids - Morphine Analogues Allergy Unknown Verified 08/24/22 11:52 Review of Systems ROS Statement: Those systems with pertinent positive or pertinent negative responses have been documented in the HPI. ROS Other: All systems not noted in ROS Statement are negative. Past Medical History Past Medical History: Asthma, Hypertension, Pulmonary Embolus (PE), Skin Disorder Additional Past Medical History / Comment(s): brochitis, questionable lupus, anemia, chronic cellulitis-neck/back, HPV, bipolar disorder, hep C History of Any Multi-Drug Resistant Organisms: None Reported Past Surgical History: Section, Tubal Ligation Additional Past Surgical History / Comment(s): 3 c-sections Past Anesthesia/Blood Transfusion Reactions: No Reported Reaction Additional Past Anesthesia/Blood Transfusion Reaction / Comment(s): pt has not had transfusion. Past Psychological History: Anxiety, Bipolar, Depression Past Alcohol Use History: None Reported Past Drug Use History: Heroin, Marijuana - Past Family History Mother Family Medical History: Diabetes Mellitus Additional Family Medical History / Comment(s): lupus, bipolar, drug dependency. Father Additional Family Medical History / Comment(s): "heart problems" General Exam - General Exam Comments Initial Comments: GENERAL: Patient is well-developed and well-nourished. Patient is nontoxic and well-h ydrated and is in mild distress. ENT: Neck is soft and supple. No significant lymphadenopathy is noted. Oropharynx is clear. Moist mucous membranes. Neck has full range of motion without eliciting any pain. EYES: The sclera were anicteric and conjunctiva were pink and moist. Extraocular mov ements were intact and pupils were equal round and reactive to light. Eyelids were unremarkable. PULMONARY: Patient has expiratory wheezing CARDIOVASCULAR: There is a regular rate and rhythm without any murmurs gallops or rubs. ABDOMEN: Soft and nontender with normal bowel sounds. SKIN: Skin is clear with no lesions or rashes and otherwise unremarkable. NEUROLOGIC: Patient is alert and oriented x3. Cranial nerves II through XII are grossly intact. Motor and sensory are also intact. Normal speech, volume and content. Symmetrical smile. MUSCULOSKELETAL: Normal extremities with adequate strength and full range of motion. Minimal edema bilateral ankles LYMPHATICS: No significant lymphadenopathy is noted PSYCHIATRIC: Normal psychiatric evaluation. Limitations: no limitations Course Vital Signs 08/24/22 11:48 Temperature 98.9 F Pulse Rate 70 Respiratory 18 Rate Blood Pressure 140/90 O2 Sat by Pulse 97 Oximetry Medical Decision Making - Medical Decision Making Was pt. sent in by a medical professional or institution (, PA, BANQUET DIRECTOR, urgent care, hospital, or long-term...) When possible be specific @ -Adequate care doctor sent the patient in. Did you speak to anyone other than the patient for history (EMS, parent, family, police, friend...)? What history was obtained from this source @ -No Did you review nursing and triage notes (agree or disagree)? Why? @ -I reviewed and agree with nursing and triage notes Were old charts reviewed (outside hosp., previous admission, EMS record, old EKG, old radiological studies, urgent care reports/EKG's, long-term records)? Report findings @ -I reviewed prior charts in prior lab work on this patient. Differential Diagnosis (chest pain, altered mental status, abdominal pain women, abdominal pain men, vaginal bleeding, weakness, fever, dyspnea, syncope, headache, dizziness, GI bleed, back pain, seizure, CVA, palpatations, mental health, musculoskeletal)? @ -Differential Dyspnea: Coronary syndrome, arrhythmia, tamponade, asthma, COPD, pulmonary embolism, pneumonia, pneumothorax, pulmonary effusion, anaphylaxis, diabetic ketoacidosis, flailed chest, pulmonary contusion, diaphragmatic rupture, anemia, neuromuscular, this is not meant to be an all-inclusive list. EKG interpreted by me (3pts min.). @ -As above X-rays interpreted by me (1pt min.). @ -Chest x-ray shows no acute abnormality CT interpreted by me (1pt min.). @ -None done U/S interpreted by me (1pt. min.). @ -None done What testing was considered but not performed or refused? (CT, X-rays, U/S, labs)? Why? @ -None What meds were considered but not given or refused? Why? @ -None Did you discuss the management of the patient with other professionals (professionals i.e. , PA, BANQUET DIRECTOR, lab, RT, psych nurse, social media strategist, solar pool heating installer, teacher, safety instruction police officer, pillowcase cleaner)? Give summary @ -No Was smoking cessation discussed for >3mins.? @ -No Was critical care preformed (if so, how long)? @ -No Were there social determinants of health that impacted care today? How? (Homelessness, low income, unemployed, alcoholism, drug addiction, transportation, low edu. Level, literacy, decrease access to med. care, residential, rehab)? @ -No Was there de-escalation of care discussed even if they declined (Discuss DNR or withdrawal of care, Hospice)? DNR status @ -No What co-morbidities impacted this encounter? (DM, HTN, Smoking, COPD, CAD, Cancer, CVA, ARF, Chemo, Hep., AIDS, mental health diagnosis, sleep apnea, morbid obesity)? @ -None Was patient admitted / discharged? Hospital course, mention meds given and route, prescriptions, significant lab abnormalities, going to OR and other pertinent info. @ -Patient received a breathing treatment 2 in the emergency family as well as steroids. Patient's lab work was essentially normal as was chest x-ray. Because the patient has been a half-way smoker I will start the patient on Zithromax I will send the patient home on steroids as well and an inhaler she does not have a breathing machine at home. Undiagnosed new problem with uncertain prognosis? @ -No Drug Therapy requiring intensive monitoring for toxicity (Heparin, Nitro, Insulin, Cardizem)? @ -No Were any procedures done? @ -No Diagnosis/symptom? @ -Acute bronchitis with bronchospasms Acute, or Chronic, or Acute on Chronic? @ -Acute Uncomplicated (without systemic symptoms) or Complicated (systemic symptoms)? @ -Complicated - Lab Data Result diagrams: 08/24/22 12:48 08/24/22 12:48 Lab Results 08/24/22 08/24/22 08/24/22 Range/Units 12:48 12:48 12:48 WBC 6.3 (3.8-10.6) k/uL RBC 4.34 (3.80-5.40) m/uL Hgb 11.8 (11.4-16.0) gm/dL Hct 36.5 (34.0-46.0) % MCV 84.1 (80.0-100.0) fL MCH 27.2 (25.0-35.0) pg MCHC 32.3 (31.0-37.0) g/dL RDW 14.3 (11.5-15.5) % Plt Count 287 (150-450) k/uL MPV 8.1 Neutrophils % 64 % Lymphocytes % 26 % Monocytes % 4 % Eosinophils % 5 % Basophils % 0 % Neutrophils # 4.0 (1.3-7.7) k/uL Lymphocytes # 1.6 (1.0-4.8) k/uL Monocytes # 0.3 (0-1.0) k/uL Eosinophils # 0.3 (0-0.7) k/uL Basophils # 0.0 (0-0.2) k/uL Hypochromasia Slight PT 9.7 (9.0-12.0) sec INR 0.9 (<1.2) APTT 23.7 (22.0-30.0) sec Sodium 136 L (137-145) mmol/L Potassium 4.5 (3.5-5.1) mmol/L Chloride 100 (98-107) mmol/L Carbon Dioxide 29 (22-30) mmol/L Anion Gap 7 mmol/L BUN 7 (7-17) mg/dL Creatinine 0.67 (0.52-1.04) mg/dL Est GFR (CKD-EPI)AfAm >90 (>60 ml/min/1.73 sqM) Est GFR (CKD-EPI)NonAf >90 (>60 ml/min/1.73 sqM) Glucose 79 (74-99) mg/dL Calcium 9.1 (8.4-10.2) mg/dL Magnesium 1.5 L (1.6-2.3) mg/dL Total Bilirubin 0.6 (0.2-1.3) mg/dL AST 37 H (14-36) U/L ALT 22 (4-34) U/L Alkaline Phosphatase 73 (38-126) U/L Troponin I (0.000-0.034) ng/mL NT-Pro-B Natriuret Pep pg/mL Total Protein 7.5 (6.3-8.2) g/dL Albumin 4.1 (3.5-5.0) g/dL 08/24/22 08/24/22 Range/Units 12:48 12:48 WBC (3.8-10.6) k/uL RBC (3.80-5.40) m/uL Hgb (11.4-16.0) gm/dL Hct (34.0-46.0) % MCV (80.0-100.0) fL MCH (25.0-35.0) pg MCHC (31.0-37.0) g/dL RDW (11.5-15.5) % Plt Count (150-450) k/uL MPV Neutrophils % % Lymphocytes % % Monocytes % % Eosinophils % % Basophils % % Neutrophils # (1.3-7.7) k/uL Lymphocytes # (1.0-4.8) k/uL Monocytes # (0-1.0) k/uL Eosinophils # (0-0.7) k/uL Basophils # (0-0.2) k/uL Hypochromasia PT (9.0-12.0) sec INR (<1.2) APTT (22.0-30.0) sec Sodium (137-145) mmol/L Potassium (3.5-5.1) mmol/L Chloride (98-107) mmol/L Carbon Dioxide (22-30) mmol/L Anion Gap mmol/L BUN (7-17) mg/dL Creatinine (0.52-1.04) mg/dL Est GFR (CKD-EPI)AfAm (>60 ml/min/1.73 sqM) Est GFR (CKD-EPI)NonAf (>60 ml/min/1.73 sqM) Glucose (74-99) mg/dL Calcium (8.4-10.2) mg/dL Magnesium (1.6-2.3) mg/dL Total Bilirubin (0.2-1.3) mg/dL AST (14-36) U/L ALT (4-34) U/L Alkaline Phosphatase (38-126) U/L Troponin I <0.012 (0.000-0.034) ng/mL NT-Pro-B Natriuret Pep 27 pg/mL Total Protein (6.3-8.2) g/dL Albumin (3.5-5.0) g/dL Disposition Clinical Impression: Acute bronchitis with bronchospasm Disposition: HOME SELF-CARE Instructions (If sedation given, give patient instructions): Bronchospasm (ED), Acute Bronchitis (ED) Prescriptions: predniSONE [Deltasone] 40 mg PO DAILY #8 tab Azithromycin [Zithromax Tri-Jayme (3 tabs)] 500 mg PO DAILY 3 Days #3 tab Is patient prescribed a controlled substance at d/c from ED?: No Referrals: Daya Ma FNPBC [Family Provider] - 1-2 days Time of Disposition: 13:35
--- NOTE | 2022-08-24 12:48 | XR ---
EXAMINATION TYPE: XR chest 2V DATE OF EXAM: 08/24/2022 12:36 PM COMPARISON: Chest radiographs from 08/10/2017 TECHNIQUE: XR chest 2V Frontal and lateral views of the chest. CLINICAL INDICATION:Female, 42 years old with history of difficulty breathing; FINDINGS: Lungs/Pleura: There is no evidence of pleural effusion, focal consolidation, or pneumothorax. Pulmonary vascularity: Unremarkable. Heart/mediastinum: Cardiomediastinal silhouette is unremarkable. Musculoskeletal: No acute osseous pathology. IMPRESSION: No acute cardiopulmonary disease/process.
[2022-08-24 13:19] LABS: INR 0.9 (<1.2); Partial Thromboplastin Time 23.7 sec (22.0-30.0); Prothrombin Time 9.7 sec (9.0-12.0)
[2022-08-24 13:26] LABS: ALT 22 U/L (4-34); AST 37 U/L (14-36); African American GFR (CKD) >90 (>60 ml/min/1.73 sqM); Albumin 4.1 g/dL (3.5-5.0); Alkaline Phosphatase 73 U/L (38-126); Anion Gap 7 mmol/L; Blood Urea Nitrogen 7 mg/dL (7-17); Calcium 9.1 mg/dL (8.4-10.2); Carbon Dioxide 29 mmol/L (22-30); Chloride 100 mmol/L (98-107); Glucose 79 mg/dL (74-99); Magnesium 1.5 mg/dL (1.6-2.3); Non-African American GFR(CKD) >90 (>60 ml/min/1.73 sqM); Sodium 136 mmol/L (137-145); Total Bilirubin 0.6 mg/dL (0.2-1.3); Total Protein 7.5 g/dL (6.3-8.2)
[2022-08-24 13:37] LABS: Basophils % (A) 0 %; Eosinophils # (A) 0.3 k/uL (0-0.7); Eosinophils % (A) 5 %; HCT 36.5 % (34.0-46.0); HGB 11.8 gm/dL (11.4-16.0); Hypochromasia Slight; Lymphocytes # (A) 1.6 k/uL (1.0-4.8); Lymphocytes % (A) 26 %; MCH 27.2 pg (25.0-35.0); MCHC 32.3 g/dL (31.0-37.0); MCV 84.1 fL (80.0-100.0); Mean Platelet Volume 8.1; Monocytes # (A) 0.3 k/uL (0-1.0); Monocytes % (A) 4 %; Neutrophils % (A) 64 %; Platelet Count 287 k/uL (150-450); Potassium 4.5 mmol/L (3.5-5.1); RBC 4.34 m/uL (3.80-5.40); RDW 14.3 % (11.5-15.5); WBC 6.3 k/uL (3.8-10.6)
[2022-08-24 13:46] VITALS: BP 128/67
[2022-08-24] MEDS ORDERED: MAGNESIUM OXIDE 400 MG TAB PO STA (13:50)
[2022-08-24 14:57] VITALS: PULSE 92
== END 2022-08-24 15:02 | disposition home or self-care (01) ==
LOC: EC 11:36
DX: J20.9 Acute bronchitis, unspecified (principal); J45.909 Unspecified asthma, uncomplicated; I10 Essential (primary) hypertension; F41.9 Anxiety disorder, unspecified; F31.9 Bipolar disorder, unspecified; F12.90 Cannabis use, unspecified, uncomplicated; F15.90 Other stimulant use, unspecified, uncomplicated; Z86.711 Personal history of pulmonary embolism; Z79.899 Other long term (current) drug therapy; Z88.8 Allergy status to other drugs, medicaments and biological substances
CPT/HCPCS: 36415; 94640; 93005; 83880; 80053; 83735; 84484; 85025; 85610; 85730; 71046; 99285; 96374; 96375; J1940; J2930